=== PATIENT | female | born 1970 | race Caucasian/White ===

== ENCOUNTER 2019-07-16 09:20 | Outpatient (CLI) | payer OTHER, SELFPAY ==
--- NOTE | ~2019-07-16 | MM_ITS ---
EXAMINATION: MM screening angela BI w uday HISTORY: Screening mammogram TECHNIQUE: Craniocaudal and mediolateral oblique 3-D tomosynthesis images were obtained and synthetic 2-D images were generated. CAD analysis was submitted and interpreted. COMPARISON: 06/22/2018, 05/30/2017, 05/19/2016 bilateral digital screening mammogram examinations BREAST PARENCHYMAL COMPOSITION: The breasts are heterogeneously dense, which may obscure small masses . FINDINGS: There is asymmetry in the posterior outer left breast best demonstrated on rotated lateral craniocaudal view. Diagnostic left mammogram is recommended, with ultrasound if required. Occasional bilateral benign calcifications. Otherwise there is no evidence of suspicious mass, calcification, or architectural distortion to sugg est malignancy in either breast. There has been no suspicious interval change. IMPRESSION: 1. Posterior outer left breast asymmetry demonstrated on rotated lateral, caudal view; 2. Diagnostic left mammogram and left breast ultrasound are recommended. BI-RADS Category 0: Incomplete: Needs additional imaging evaluation. Reviewed, dictated and finalized at location A. IMPRESSION: 1. Posterior outer left breast asymmetry demonstrated on rotated lateral, cauda l view; 2. Diagnostic left mammogram and left breast ultrasound are recommended. BI-RADS Category 0: Incomplete: Needs additional imaging evaluation.
== END 2019-07-16 09:21 | disposition home or self-care (01) ==
LOC: ANHIMG 09:25
PROVIDERS: PCP Internal Medicine; Visit Provider Obstetrics & Gynecology
DX: Z12.31 Encounter for screening mammogram for malignant neoplasm of breast (principal); R92.8 Other abnormal and inconclusive findings on diagnostic imaging of breast
CPT/HCPCS: 77063; 77067

== ENCOUNTER 2019-07-25 12:18 | Outpatient (CLI) | payer OTHER, SELFPAY ==
--- NOTE | ~2019-07-25 | MMUS_ITS ---
EXAMINATION: MM diagnostic mammo unilat LT, US breast LT complete HISTORY: Follow-up left breast asymmetry TECHNIQUE: Additional 3-D tomosynthesis images of the left breast were performed and synthetic 2-D im ages were generated. CAD analysis was submitted and interpreted. High resolution left breast ultrasou nd was performed. COMPARISON: 07/16/2019 FINDINGS: MAMMOGRAPHIC FINDINGS: The breasts are heterogenously dense, which may obscure small masses. There is a small 4 mm mass supe rior to the nipple anteriorly on MLO view. Focal asymmetry laterally in the left breast on CC view do es not reveal any discrete mass or architectural distortion with spot compression. There are benign c alcifications. ULTRASOUND: Left breast ultrasound: There are multiple simple and complicated cyst of the left breast. There is a cluster of cysts at 12: 00, 1 cm from the nipple, likely corresponding to the mammographic abnormality, measuring 5 mm maximu m dimension. There is a small oval hypoechoic mass at 2:00, 6 cm from the nipple, measuring 3 mm, lik fabienne benign. There is an oval circumscribed hypoechoic mass at 2:00, 5 cm from the nipple, without int ernal vascularity or posterior features, measuring 7 mm maximum dimension. At 4:00, 3 cm from the nip ple, there is an oval circumscribed hypoechoic mass measuring 1.2 cm greatest dimension with internal echogenicity. No significant internal vascularity or posterior shadowing. This likely represents an intramammary lymph node. There is a possible intramammary lymph node at 8:00, 7 cm from the nipple me asuring 6 mm. IMPRESSION: 1. Probable benign left breast findings. 2. Recommend 6 month follow-up diagnostic left mammogram and ultrasound BI-RADS category 3, probably benign findings. Reviewed, dictated and finalized at location A. IMPRESSION: 1. Probable benign left breast findings. 2. Recommend 6 month follow-up diagnostic left mammogram and ultrasound BI-RADS category 3, probably benign findings.
== END 2019-07-25 12:19 | disposition home or self-care (01) ==
PROVIDERS: PCP Internal Medicine; Visit Provider Internal Medicine
DX: R92.8 Other abnormal and inconclusive findings on diagnostic imaging of breast (principal)
CPT/HCPCS: 76641; 77065

== ENCOUNTER 2021-10-30 14:27 | Outpatient (CLI) | payer OTHER, SELFPAY ==
--- NOTE | ~2021-10-30 | CT_ITS ---
EXAMINATION: CT abdomen pelvis w con DATE: 10/30/2021 15:42 INDICATION: Left lower quadrant abdominal pain. Diarrhea. TECHNIQUE: Computed tomography (CT) of the abdomen and pelvis was performed with 100 mL Omnipaque 350 intravenous contrast. Automated exposure control and iterative reconstruction technique were employe d. The dose-length product was 592.98 mGy-cm. COMPARISON: CT abdomen and pelvis 06/04/2018 FINDINGS: The visualized portions of the lung bases demonstrate minimal atelectasis. A calcified righ t lung nodule and calcified right hilar lymph nodes are consistent with old granulomatous disease. No pleural effusion. The heart size is normal. No pericardial effusion. The liver, gallbladder, spleen, pancreas, adrenal glands, and right kidney are normal. There is mild atrophy of left kidney. There i s a 10 mm cyst in left kidney. There is a 6 mm mass in left kidney that is too small to characterize, but likely benign. There is wall thickening of sigmoid colon with adjacent fat stranding centered at a diverticulum, consistent with diverticulitis. There are changes of appendectomy. There are no path ologically enlarged lymph nodes. There is trace pelvic ascites. There is mild thoracolumbar spondylos is. IMPRESSION: 1. Sigmoid diverticulitis. No perforation or abscess. Reviewed, dictated and finalized at location A.
[2021-10-30 14:47] LABS: Hematocrit 35.4 % (35.0-49.0); Mean Corpuscular HGB Conc 33.9 g/dL (32.0-36.0); Mean Corpuscular Hemoglobin 29.6 pg (27.0-31.0); Mean Corpuscular Volume 87.2 fL (78.0-102.0); Mean Platelet Volume 10.2 fl (9.2-11.8); Platelet Count Result 229 K/mm3 (150-420); Red Blood Count 4.06 M/mm3 (4.20-5.40); White Blood Count 8.2 K/mm3 (4.8-10.8)
[2021-10-30 14:48] LABS: Add Urine Microscopic? YES; Appearance Urine Clear (Clear); Bilirubin Urine Negative (Negative); Blood Urine Negative (Negative); Color Urine Light Yellow (Yellow); Glucose Urine UA Negative (Negative); Ketones Urine Negative (Negative); Leukocyte Esterase Ur 2+ LEU/UL (Negative); Nitrate Urine Negative (Negative); Protein Urine Negative (Negative); Urobilinogen Urine 0.2 mg/dL (0.2-1.0)
[2021-10-30 14:51] LABS: Bacteria Urine Trace /hpf; RBC Urine None seen /hpf (0-2); Squamous Epithelial Cell Urine Few /hpf (Few)
[2021-10-30 15:04] LABS: Alanine Aminotransferase 25 U/L (14-59); Albumin Level 3.8 g/dL (3.4-5.0); Alkaline Phosphatase 105 U/L (46-116); Amylase 51 U/L (25-115); Anion Gap 8 mmol/L (8-16); Aspartate Amino Transferase 16 U/L (15-37); Bilirubin,Total 0.5 mg/dL (0.00-1.00); Blood Urea Nitrogen 16 mg/dL (7-18); Calcium 9.1 mg/dL (8.5-10.1); Carbon Dioxide 29 mmol/L (21-32); Chloride 103 mmol/L (98-108); Estimated Glomerular Filt Rate 55; Glucose 101 mg/dL (70-99); Lipase 114 U/L (73-393); Osmolality Calculated 291 mOsm/kg (285-295); Potassium 3.8 mmol/L (3.5-5.1); Sodium 140 mmol/L (136-145); Total Protein 7.6 g/dL (6.4-8.2)
== END 2021-10-30 14:28 | disposition home or self-care (01) ==
LOC: CHSLAB 14:32
PROVIDERS: PCP Internal Medicine; Visit Provider Nurse Practitioner Family
DX: R10.9 Unspecified abdominal pain (principal); R50.9 Fever, unspecified; R19.7 Diarrhea, unspecified
CPT/HCPCS: 36415; 74177; 80053; 81001; 82150; 83690; 85027; 87077; 87086; 87088; 87186; Q9967

== ENCOUNTER 2022-03-22 10:03 | Outpatient (CLI) | payer OTHER, SELFPAY ==
--- NOTE | ~2022-03-22 | CT_ITS ---
CT Abdomen and Pelvis with contrast. History: Diarrhea, melena. Spiral CT of the abdomen and pelvis was performed after the administration of intravenous contrast. 1 00 cc of Omnipaque 350 was administered intravenously without complication. Dose reduction technique was used on this scan by utilizing automated exposure control and iterative reconstruction technique. The dose-length product (DLP) was 492.57 mGy-cm. COMPARISON: 10/30/2021 Findings: Scans through the lung bases demonstrate mild atelectatic change. The liver, spleen, pancreas, gallbladder, adrenals and kidneys are within normal limits. No evidence of aortic aneurysm. No lymphadenopathy is seen. There is no evidence of bowel obstruction. There is no evidence to suggest acute appendicitis or dive rticulitis. Images through the pelvis were performed. Urinary bladder unremarkable. Probable small fat-containing left ovarian mass, compatible small dermoid. No ascites is seen. Impression: No acute abnormality evident. Probable small fat-containing left ovarian dermoid. Female Reviewed, dictated and finalized at [facility]. [employer] Impression: No acute abnormality evident. Probable small fat-containing left ovarian dermoid. Female
[2022-03-22 10:18] LABS: Basophils Absolute Auto 0.03 K/mm3 (0.00-0.10); Basophils Percent Auto 0.7 % (0.0-1.0); Eosinophils Absolute Auto 0.06 K/mm3 (0.02-0.50); Eosinophils Percent Auto 1.4 % (1.0-6.0); Hematocrit 37.4 % (35.0-49.0); Hemoglobin 12.9 g/dL (12.0-15.0); Immature Granulocyte Absolute 0.01 K/mm3 (0.00-0.00); Immature Granulocyte Percent A 0.2 % (0.0-0.0); Lymphocytes Absolute Auto 1.07 K/mm3 (1.10-4.50); Lymphocytes Percent Auto 24.9 % (18.0-42.0); Mean Corpuscular HGB Conc 34.5 g/dL (32.0-36.0); Mean Corpuscular Hemoglobin 29.5 pg (27.0-31.0); Mean Corpuscular Volume 85.4 fL (78.0-102.0); Mean Platelet Volume 10.4 fl (9.2-11.8); Monocytes Absolute Auto 0.42 K/mm3 (0.10-0.90); Monocytes Percent Auto 9.8 % (2.0-11.0); Neutrophils Absolute Auto 2.7 K/mm3 (1.7-7.2); Platelet Count Result 253 K/mm3 (150-420); Red Blood Count 4.38 M/mm3 (4.20-5.40); Red Cell Distribution Width 12.9 % (11.6-14.4); White Blood Count 4.3 K/mm3 (4.8-10.8)
[2022-03-22 11:00] LABS: Alanine Aminotransferase 27 U/L (14-59); Albumin Level 4.1 g/dL (3.4-5.0); Alkaline Phosphatase 87 U/L (46-116); Anion Gap 9 mmol/L (8-16); Aspartate Amino Transferase 18 U/L (15-37); Bilirubin,Total 0.4 mg/dL (0.00-1.00); Blood Urea Nitrogen 9 mg/dL (7-18); Calcium 9.4 mg/dL (8.5-10.1); Carbon Dioxide 28 mmol/L (21-32); Chloride 105 mmol/L (98-108); Estimated Glomerular Filt Rate 60; Glucose 113 mg/dL (70-99); Osmolality Calculated 293 mOsm/kg (285-295); Potassium 3.7 mmol/L (3.5-5.1); Sodium 142 mmol/L (136-145); Total Protein 7.4 g/dL (6.4-8.2)
== END 2022-03-22 10:04 | disposition home or self-care (01) ==
PROVIDERS: PCP Internal Medicine; Visit Provider Internal Medicine
DX: R19.7 Diarrhea, unspecified (principal)
CPT/HCPCS: 36415; 74177; 80053; 85025; Q9967

== ENCOUNTER 2022-09-09 02:55 | Day surgery (SDC) | payer OTHER, SELFPAY ==
[2022-09-03 09:56] VITALS: BMI 33.3
[2022-09-09 09:45] VITALS: BP 104/79; PULSE 89; RESP 18; TEMP 36.4; O2SAT 89; BMI 31.1
[2022-09-09] MEDS: LACTATED RINGERS 1,000 ML 150 ML IV CONT (10:04)
--- NOTE | 2022-09-09 10:42 | P.PNAN_ITS ---
Anes - Initial Pre Proc Eval Procedure: Operation Date: 09/09/22 10:30 Proposed Procedures p Colonoscopy - Carlito Moya DO Date/Time: 09/09/22 10:42 Surgeon: Carlito Moya DO Pre Op Diagnosis: hx of hemorrhoids Patient Data Age: 52 Gender: F Height: 1.55 m Weight: 74.8 kg Last Vital Signs Temp 97.6 F 09/09/22 09:45 Pulse 89 09/09/22 09:45 Resp 18 09/09/22 09:45 BP 104/79 09/09/22 09:45 Pulse Ox 89 L 09/09/22 09:45 O2 Del Method Room Air 09/09/22 09:45 Allergies Allergy/AdvReac Type Severity Reaction Status Date / Time cephalexin Allergy Unknown Rash Verified 09/03/22 09:55 Sulfa (Sulfonamide Allergy Unknown Other Verified 09/03/22 09:55 Antibiotics) Home Medications Medication Instructions Recorded Confirmed Type Adderall XR 30 mg PO DAILY 09/03/22 09/03/22 History brexpiprazole 1 mg tablet (Rexulti) mg 09/03/22 History buspirone 10 mg tablet 10 mg PO TID 09/03/22 09/03/22 History vilazodone 40 mg tablet (Viibryd) 40 mg PO DAILY 09/03/22 09/03/22 History Patient hx anesthesia problems: none Family hx anesthesia problems: none Results Review: All pre-operative results and documents have been reviewed as part of the pre- operative evaluation. [facility] Social History Social History Smoking status: Never smoker Alcohol intake: current Drinks per week: 6 Living arrangements: with family Spiritual care concerns: No Anes - Eval Final PreProcedure Day of Procedure 09/09/22 10:42 Patient weight: normal Heart: regular rate and rhythm Lungs: clear to auscultation Airway: Mallampati scale class II Neurological: alert and oriented Last oral intake: >/= 8 hours ASA classification: II Emergent: no Anesthetic plan: proceed Anesthesia type and monitoring: general GIVS and standard monitoring Results Review: All pre-operative results and documents have been reviewed as part of the pre- operative evaluation. Informed Consent: The patient's anesthetic plan and its attendant risks and benefits were discussed with the patient/family/POA. Questions were solicited and answers provided to the satisfaction of the patient/family/POA.
--- NOTE | 2022-09-09 11:11 | PM.IMHP ---
H&P: HPI History of Present Illness Date/Time: 09/09/22 11:11 Chief Complaint: Rectal bleeding, diverticulitis Narrative: This is a 52-year-old woman who presents for colonoscopy. Her last colonoscopy was about 5-7 years ago. She has had multiple episodes of diverticulitis over the past couple years. The last episode she was also experiencing rectal bleeding. She denies any first-degree family members with colon cancer but did have a grandfather had colon cancer. Review of Systems Review of Systems: All systems reviewed & are unremarkable except as noted in HPI and below Constitutional: Constitutional: Denies chills, Denies fever(s), Denies headache(s) and Denies weight loss Eyes: Eyes: Denies change in vision ENT: Denies dizziness, Denies headache(s), Denies neck mass and Denies throat swelling Cardiovascular: Cardiovascular: Denies chest pain, Denies lightheadedness and Denies dyspnea Respiratory: Respiratory: Denies cough, Denies dyspnea and Denies wheezing Gastrointestinal: Gastrointestinal: Denies abdominal pain, Denies change in bowel habits, Denies nausea and Denies vomiting Genitourinary: Genitourinary: Denies hematuria and Denies dysuria Musculoskeletal: Musculoskeletal: Reports as per HPI Integumentary/Breasts: Skin/Breast: Reports as per HPI Neurologic: Denies dizziness and Denies headache(s) Allergic/Immunologic: Allergic/Immunologic: Denies throat swelling and Denies wheezing [facility] Social History Social History Smoking status: Never smoker Alcohol intake: current Drinks per week: 6 Living arrangements: with family Spiritual care concerns: No Meds Home Medications and Allergies Home Medications Medication Instructions Recorded Confirmed Type Adderall XR 30 mg PO DAILY 09/03/22 09/03/22 History brexpiprazole 1 mg tablet (Rexulti) mg 09/03/22 History buspirone 10 mg tablet 10 mg PO TID 09/03/22 09/03/22 History vilazodone 40 mg tablet (Viibryd) 40 mg PO DAILY 09/03/22 09/03/22 History Allergies Allergy/AdvReac Type Severity Reaction Status Date / Time cephalexin Allergy Unknown Rash Verified 09/03/22 09:55 Sulfa (Sulfonamide Allergy Unknown Other Verified 09/03/22 09:55 Antibiotics) Vital Signs Vital Signs - 24 hr 09/09/22 09:45 Temperature 36.4 C Pulse Rate 89 Respiratory Rate 18 Blood Pressure 104/79 Pulse Oximetry 89 L Oxygen Delivery Room Air Exam Const: General: no acute distress and alert Orientation/consciousness: patient oriented x3 HENMT: Head: normocephalic and atraumatic Ears: hearing grossly normal bilaterally Face/Nose/Sinus: Normal nares present Mouth: Yes Normal oral and palatal mucosa present Eyes: Periorbital: periorbital findings normal Sclera: sclerae normal EOM: EOMs intact bilaterally Neck: Neck: normal visual inspection, no lymphadenopathy and trachea midline Chest: Chest palpation & inspection: normal inspection of the chest Resp: Effort & Inspection: normal respiratory effort Auscultation: clear to auscultation bilaterally Cardio: Jugular venous distension: no JVD Rate: regular rate Rhythm: regular rhythm Heart sounds: S1 normal heart sound present and S2 normal heart sound present Peripheral pulses: Peripheral pulses 2+ throughout GI: Inspection: normal to inspection GI Palp: Yes Soft to palpation, No Tenderness to palpation present (GI), No Guarding due to palpation present (GI) and No Rebound tenderness present Percussion: Yes normal to percussion Auscultation: normal bowel sounds : General: Yes no CVA tenderness Back/Spine/Pelvis: Back: no CVA tenderness Neuro: General: patient oriented x3, no focal motor deficits and CN's II-XI intact bilaterally Cognition (Neuro): normal cognition Speech: normal speech Motor exam (neuro): 5/5 motor strength present throughout Extrem: General: capillary refill normal and no clubbing, cyanosis or edema Ass
[2022-09-09 11:41] VITALS: BP 82/41; PULSE 87; RESP 18; O2SAT 100
[2022-09-09 11:51] VITALS: BP 83/40; PULSE 75; RESP 18; O2SAT 100
[2022-09-09 12:01] VITALS: BP 110/69; PULSE 73; RESP 25; O2SAT 97
== END 2022-09-09 12:09 | disposition home or self-care (01) ==
PROVIDERS: PCP Internal Medicine; Visit Provider Surgery
PROC: 0DJD8ZZ Inspection of Lower Intestinal Tract, Via Natural or Artificial Opening Endoscopic (ICD-10-PCS; CPT 45378; principal; 2022-09-09 10:30)
DX: K62.5 Hemorrhage of anus and rectum (principal); K63.5 Polyp of colon; K57.30 Diverticulosis of large intestine without perforation or abscess without bleeding; Z87.19 Personal history of other diseases of the digestive system
CPT/HCPCS: 45380; 88305; J2704; J7120

== ENCOUNTER 2022-10-24 18:19 | Observation (INO) | payer OTHER, SELFPAY ==
--- NOTE | ~2022-10-24 | CT_ITS ---
EXAMINATION: CT abdomen pelvis wo con DATE: 10/24/2022 19:49 INDICATION: Flank pain TECHNIQUE: Computed tomography (CT) of the abdomen and pelvis was performed without intravenous contr ast. Automated exposure control and iterative reconstruction technique were employed. The dose-length product was 492.42 mGy-cm. COMPARISON: 03/22/2022 and 06/04/2018 FINDINGS: Calcified right lower lobe nodule along with calcified right hilar lymph nodes consistent with old gr anulomatous disease. 4 mm left lower lobe nodule likely benign noncalcified granuloma given no change since 2019. Heart size is normal. No pericardial or pleural effusion. Liver, gallbladder, spleen, pa ncreas, right kidney and bilateral adrenal glands are normal. No significant change since 11/07/2021 i n a 7 mm soft tissue density partially exophytic lesion at the upper pole region of the left kidney. Small region of cortical scarring at the upper pole the left kidney. No evident urolithiasis. Postope rative change of prior appendectomy with suture line along the tip the cecum and a couple surgical cl ips in the adjacent fat. No abnormal bowel wall thickening or obstruction. Bladder is normal. The shanice iesha is not identified and has likely been surgically resected. No free intraperitoneal gas or fluid. No pathologically enlarged abdominal or pelvic lymphadenopathy. Bones are unremarkable. IMPRESSION: 1. No urolithiasis or other acute intra-abdominal/pelvic process. 2. 7 mm soft tissue density lesion at the mid left kidney statistically most likely to represent a pr oteinaceous/hemorrhagic cyst but too small to definitively characterize. Consider 6-12 month follow-u p pre and postcontrast CT or preferably MRI. Reviewed, dictated and finalized at location A. IMPRESSION: 1. No urolithiasis or other acute intra-abdominal/pelvic process. 2. 7 mm soft tissue density lesion at the mid left kidney statistically most li bev to represent a proteinaceous/hemorrhagic cyst but too small to definitivel y characterize. Consider 6-12 month follow-up pre and postcontrast CT or prefer ably MRI.
--- NOTE | ~2022-10-24 | XR_ITS ---
EXAMINATION: XR chest 1V portable DATE: 10/26/2022 15:53 INDICATION: Shortness of breath and pleuritic chest pain TECHNIQUE: frontal view of the chest was obtained. COMPARISON: CT abdomen and pelvis dated 10/24/2022 FINDINGS: Calcified right lower lobe nodule and calcified right hilar and infrahilar lymph nodes consistent wit h old granulomatous disease. No other airspace opacities, pulmonary edema, pleural effusion or pneumo thorax. The cardiomediastinal silhouette is normal. Visualized bones and soft tissues are unremarkabl e. IMPRESSION: 1. No acute cardiopulmonary disease. Reviewed, dictated and finalized at location A.
[2022-10-24 18:26] VITALS: BP 117/74; PULSE 133; RESP 20; TEMP 37.5; O2SAT 98
[2022-10-24 18:55] LABS: Basophils Percent Auto 0.4 % (0.2-1.2); Eosinophils Percent Auto 0.6 % (0-4.4); Hematocrit 40.3 % (37.0-47.0); Hemoglobin 13.7 g/dL (12.0-15.0); Immature Granulocyte Absolute 0.03 K/mm3 (0.00-0.031); Immature Granulocyte Percent A 0.4 % (0-0.5); Lymphocytes Absolute Auto 0.46 K/mm3 (0.9-3.2); Lymphocytes Percent Auto 6.6 % (18.3-44.2); Mean Corpuscular Hemoglobin 29.5 pg (26-34); Mean Corpuscular Volume 86.7 fl (80-100); Mean Platelet Volume 10.5 fl (7.4-10.4); Monocytes Absolute Auto 0.5 K/mm3 (0.1-0.6); Monocytes Percent Auto 7.4 % (2.6-8.5); Neutrophils Absolute Auto 5.9 K/mm3 (1.3-6.7); Neutrophils Percent Auto 84.6 % (45.5-73.1); Platelet Count Result 239 k/mm3 (150-375); Red Blood Count 4.65 M/mm3 (4.2-5.4); Red Cell Distribution Width 12.9 % (11.5-14.5)
[2022-10-24 19:01] VITALS: BP 119/74; PULSE 108; PULSE 110; RESP 15; RESP 18; O2SAT 97
[2022-10-24 19:08] LABS: Alanine Aminotransferase 32 U/L (6-35); Albumin Level 4.6 g/dL (3.5-5.1); Alkaline Phosphatase 94 U/L (38-126); Anion Gap 10 mmol/L (8-16); Aspartate Amino Transferase 29 U/L (14-36); Bilirubin,Total 0.4 mg/dL (0.2-1.3); Blood Urea Nitrogen 13 mg/dL (7-17); Calcium 9.3 mg/dL (8.4-10.2); Carbon Dioxide 25 mmol/L (22-30); Chloride 102 mmol/L (98-107); Estimated CRCL calculation 66 ml/min; Estimated Glomerular Filt Rate > 60; Glucose 167 mg/dL (65-110); Potassium 3.8 mmol/L (3.4-5.0); Sodium 137 mmol/L (137-145)
[2022-10-24 19:17] LABS: Bacteria Urine 3+ /hpf; Mucus Urine Present /lpf; Need Manual Microscopic Reviewed; RBC Urine 51-100 /hpf (0-2); Squamous Epithelial Cell Urine Occasional /hpf (Few); WBC Urine 21-50 /hpf
[2022-10-24 19:18] LABS: Appearance Urine Cloudy (Clear); Blood Urine 3+ (Negative); Color Urine Orange (Yellow); Glucose Urine UA Negative (Negative); Ketones Urine Negative (Negative); Leukocyte Esterase Ur 3+ LEU/UL (Negative); Nitrate Urine Positive (Negative); Protein Urine 1+ mg/dL (Negative); Specific Grav Ur 1.019 (1.001-1.035)
[2022-10-24 19:30] LABS: Add Urine Microscopic? YES
[2022-10-24] MEDS: ONDANSETRON INJ 4 MG/2 ML VIAL IV PUSH (20:06)
[2022-10-24] MEDS: KETOROLAC 30 MG/ML VIAL (*BKC) IV PUSH (20:06)
[2022-10-24] MEDS: SODIUM CHLORIDE 0.9% IV 1,000 ML 999 ML IV CONT (20:06)
[2022-10-24 20:09] VITALS: BP 114/74; PULSE 104; RESP 15; O2SAT 97
[2022-10-24 20:44] LABS: Lactic Acid Reflex 1.6 mmol/L (0.7-2.0)
--- NOTE | 2022-10-24 20:45 | ED.GENADULT ---
HPI - General Adult General Chief complaint: Urogenital-Female Stated complaint: uti, fever Time Seen by Provider: 10/24/22 19:20 History of Present Illness HPI narrative: Patient a 52-year-old female who presents the emergency department with chief complaint of flank pain UTI low-grade temperature patient reports that she was seen in urgent care and started on Cipro. The patient reports that she has no prior history of kidney stones the patient reports she is also had a little bit of a sore throat and generalized malaise and body aches. Related Data Home Medications Medication Instructions Recorded Confirmed Adderall XR 30 mg PO DAILY 09/03/22 09/03/22 brexpiprazole 1 mg tablet (Rexulti) mg 09/03/22 buspirone 10 mg tablet 10 mg PO TID 09/03/22 09/03/22 vilazodone 40 mg tablet (Viibryd) 40 mg PO DAILY 09/03/22 09/03/22 Allergies Allergy/AdvReac Type Severity Reaction Status Date / Time cephalexin Allergy Unknown Rash Verified 10/24/22 18:35 Sulfa (Sulfonamide Allergy Unknown Other Verified 10/24/22 18:35 Antibiotics) Review of Systems Review of Systems: A 10 system review of systems was completed on the patient and is negative except for what is stated in the HPI. Nursing and ancillary documentation was reviewed. [facility] Social History Social History Smoking status: Never smoker Alcohol intake: current Drinks per week: 6 Living arrangements: with family Spiritual care concerns: No Exam Narrative: GENERAL: Well-appearing, well-nourished, and in no acute distress. HEAD: Normocephalic, atraumatic. EYES: PERRLA and EOMI. ENT: Nares clear, no rhinorrhea or epistaxis. Mucous membranes moist. NECK: Supple. CHEST: Clear to auscultation. No respiratory distress. HEART: Regular rate and rhythm. No murmur heard. Normal peripheral pulses. ABDOMEN: Soft, nontender, nondistended, normal active bowel sounds. EXTREMITIES: Normal range of motion. No edema. SKIN: Warm, dry, no rash. NEURO: No focal deficits. Alert and oriented x3. PSYCH: Normal mood and affect. Course Vital Signs Vital signs: Vital Signs Temperature 37.5 C 10/24/22 18:26 Pulse Rate 133 H 10/24/22 18:26 Respiratory Rate 20 10/24/22 18:26 Blood Pressure 117/74 10/24/22 18:26 Pulse Oximetry 98 10/24/22 18:26 Oxygen Delivery Room Air 10/24/22 18:26 Temperature 37.5 C 10/24/22 18:26 Pulse Rate 104 H 10/24/22 20:09 Respiratory Rate 15 10/24/22 20:09 Blood Pressure 114/74 10/24/22 20:09 Pulse Oximetry 97 10/24/22 20:09 Oxygen Delivery Room Air 10/24/22 18:26 Medical Decision Making MDM Narrative Medical decision making narrative: Differential diagnosis includes pyelonephritis, obstructing ureterolithiasis, electrolyte abnormality, dehydration Laboratory studies were obtained which showed a normal white blood cell count urinalysis showed 21-50 white blood cells 3+ leukocyte esterase positive nitrate and 3+ bacteria CT scan showed no evidence of obstructing stone Patient is negative for COVID and influenza and strep The patient does have a allergy listed to Heavy. This was at a very young age and the patient reports that she had a rash. Given the patient has been treated with Cipro since Tuesday with failing outpatient therapy the patient will be attempted with a Rocephin dosing. The patient will be monitored in the emergency department after receiving Rocephin and the patient will be admitted Vital Signs Vital Signs: Vital Signs Temperature 37.5 C 10/24/22 18:26 Pulse Rate 133 H 10/24/22 18:26 Respiratory Rate 20 10/24/22 18:26 Blood Pressure 117/74 10/24/22 18:26 Pulse Oximetry 98 10/24/22 18:26 Oxygen Delivery Room Air 10/24/22 18:26 Temperature 37.5 C 10/24/22 18:26 Pulse Rate 104 H 10/24/22 20:09 Respiratory Rate 15 10/24/22 20:09 Blood Pressure 114/74 10/24/22 20:09
[2022-10-24 20:58] LABS: Strep Group A RT-PCR NOT DETECTED (Negative)
[2022-10-24 21:10] LABS: Influenza A QL RT-PCR Negative (Negative); Influenza B QL RT-PCR Negative (Negative); SARS-CoV-2 RNA PCR Negative (Negative)
[2022-10-24 22:58] VITALS: BP 105/57; PULSE 87; RESP 16; TEMP 36.7; O2SAT 98; BMI 30.4
--- NOTE | 2022-10-24 23:01 | ADMGEN ---
This patient, Jessica Lopez, was admitted to Medical Room 241-. Patient/family oriented to hospital policies and general routines including ID bracelet, bed and alarms, visiting hours, pain management, procedures, bathroom and other care routines, personal items, smoking policy, room service/diet, and visiting hours. Information on how to activate the Rapid Response Team has been discussed. Patient/Family are encouraged to report perceived risks to care and to ask questions if they do not understand what they are told or what they should do.
[2022-10-24] MEDS: SODIUM CHLORIDE 0.9% IV 1,000 ML 125 ML IV CONT (23:10)
--- NOTE | 2022-10-24 23:21 | PM.IMHP ---
H&P: HPI History of Present Illness Date/Time: 10/24/22 23:21 Chief Complaint: Fever Narrative: This is a 52-year-old female with past medical history significant for generalized anxiety disorder, major depression, adult attention deficit disorder. Patient presents to the emergency room due to several days of dysuria, had been to the urgent care where she was prescribed ciprofloxacin and sent home however patient noticed worsening of the symptoms no relieve overall worsening of generalized weakness and malaise and had a fever had some nausea but no vomiting patient also with pain in her back and flank area. Preliminary workup was significant for urinalysis with numerous WBCs present. [place] [address] [place], [place] [id number] CT Scan Report Signed Patient: Jessica Lopez : 1970 MR#: [id number] Age/Sex: 52 / F Acct:[id number] Loc: [facility]? ? ADM Date: 10/24/22Attending Dr: Ordering Physician: Dani Mccord MD Date of Service: 10/24/22 Procedure(s): CT abdomen pelvis wo con Accession Number(s): [id number] cc: Romeo Dobbs MD; Dani Mccord MD~ EXAMINATION: CT abdomen pelvis wo con DATE: 10/24/2022 19:49 INDICATION: Flank pain TECHNIQUE: Computed tomography (CT) of the abdomen and pelvis was performed without intravenous contrast. Automated exposure control and iterative reconstruction technique were employed. The dose-length product was 492.42 mGy-cm. COMPARISON: 03/22/2022 and 06/04/2018 FINDINGS: Calcified right lower lobe nodule along with calcified right hilar lymph nodes consistent with old granulomatous disease. 4 mm left lower lobe nodule likely benign noncalcified granuloma given no change since 2019. Heart size is normal. No pericardial or pleural effusion. Liver, gallbladder, spleen, pancreas, right kidney and bilateral adrenal glands are normal. No significant change since 11/07/2021 in a 7 mm soft tissue density partially exophytic lesion at the upper pole region of the left kidney. Small region of cortical scarring at the upper pole the left kidney. No evident urolithiasis. Postoperative change of prior appendectomy with suture line along the tip the cecum and a couple surgical clips in the adjacent fat. No abnormal bowel wall thickening or obstruction. Bladder is normal. The uterus is not identified and has likely been surgically resected. No free intraperitoneal gas or fluid. No pathologically enlarged abdominal or pelvic lymphadenopathy. Bones are unremarkable. IMPRESSION: 1. No urolithiasis or other acute intra-abdominal/pelvic process. 2. 7 mm soft tissue density lesion at the mid left kidney statistically most likely to represent a proteinaceous/hemorrhagic cyst but too small to definitively characterize. Consider 6-12 month follow-up pre and postcontrast CT or preferably MRI. Review of Systems Review of Systems: Dysuria, flank pain back pain generalized malaise, fever, chills, nausea. Constitutional: Constitutional: Reports chills, Reports fatigue, Reports malaise, Reports poor appetite and Reports weakness Eyes: Eyes: Denies change in vision ENT: Denies dysphagia and Denies odynophagia Cardiovascular: Cardiovascular: Denies chest pain, Denies radiating jaw, neck or arm pain and Denies palpitations Respiratory: Respiratory: Denies chest congestion, Denies cough, Denies dyspnea and Denies dyspnea on exertion Gastrointestinal: Gastrointestinal: Denies abdominal pain, Denies dyspepsia, Denies heartburn, Denies diarrhea, Reports nausea and Denies vomiting Genitourinary: Genitourinary: Reports dysuria and Reports flank pain Musculoskeletal: Musculoskeletal: Reports muscle weakness Integumentary/Breasts: Skin/Breast: Denies rash Neurologic: Denies focal weakness and Denies Sensory deficit (Neuro) Psychiatric: Psychiatric: Reports no additional psychiatric complaints and Reports as per HPI Endocrine: Endo
[2022-10-25 02:33] VITALS: TEMP 37.2
[2022-10-25] MEDS: ACETAMINOPHEN 500 MG TABLET 1000 MG PO ×2 (02:36→19:40)
[2022-10-25 06:00] VITALS: BP 108/67; PULSE 81; RESP 14; TEMP 36.7; O2SAT 98
[2022-10-25 06:01] LABS: Basophils Percent Auto 0.4 % (0.2-1.2); Eosinophils Absolute Auto 0.1 K/mm3 (0-0.3); Eosinophils Percent Auto 0.9 % (0-4.4); Hematocrit 36.6 % (37.0-47.0); Hemoglobin 12.1 g/dL (12.0-15.0); Immature Granulocyte Absolute 0.02 K/mm3 (0.00-0.031); Immature Granulocyte Percent A 0.4 % (0-0.5); Lymphocytes Absolute Auto 0.77 K/mm3 (0.9-3.2); Lymphocytes Percent Auto 13.9 % (18.3-44.2); Mean Corpuscular HGB Conc 33.1 g/dl (32-36); Mean Corpuscular Hemoglobin 29.3 pg (26-34); Mean Corpuscular Volume 88.6 fl (80-100); Mean Platelet Volume 10.8 fl (7.4-10.4); Monocytes Absolute Auto 0.5 K/mm3 (0.1-0.6); Monocytes Percent Auto 8.9 % (2.6-8.5); Neutrophils Absolute Auto 4.2 K/mm3 (1.3-6.7); Neutrophils Percent Auto 75.5 % (45.5-73.1); Platelet Count Result 195 k/mm3 (150-375); Red Blood Count 4.13 M/mm3 (4.2-5.4); Red Cell Distribution Width 12.8 % (11.5-14.5); White Blood Count 5.5 K/mm3 (4.5-10.0)
[2022-10-25 06:17] LABS: Anion Gap 5 mmol/L (8-16); Blood Urea Nitrogen 11 mg/dL (7-17); Calcium 8.3 mg/dL (8.4-10.2); Carbon Dioxide 26 mmol/L (22-30); Chloride 107 mmol/L (98-107); Estimated CRCL calculation 74 ml/min; Estimated Glomerular Filt Rate > 60; Glucose 107 mg/dL (65-110); Potassium 3.8 mmol/L (3.4-5.0); Sodium 138 mmol/L (137-145)
--- NOTE | 2022-10-25 07:18 | PM.IMPN ---
Progress Note: A&P Assessment and Plan (1) Pyelonephritis: Code(s): N12 - Tubulo-interstitial nephritis, not specified as acute or chronic Status: Acute Assessment and Plan: Admit to regular medical floor Patient started on Rocephin Await urine culture identification sensitive Continue to monitor Supportive care (2) Generalized anxiety disorder: Code(s): F41.1 - Generalized anxiety disorder Status: Acute Assessment and Plan: Continue home meds Follow-up in outpatient setting (3) ADHD (attention deficit hyperactivity disorder): Code(s): F90.9 - Attention-deficit hyperactivity disorder, unspecified type Status: Acute Assessment and Plan: Continue home meds Follow-up in outpatient setting Plan Feeding:general diet Analgesia:acetaminophen Thromboembolic prophylaxis: SCDs Ulcer prophylaxis: Not indicated Glycemic control: Not indicated Bowel regimen: Not indicated Lines: PIV Antibiotics: Rocephin Subjective Date/time seen: 10/25/22 07:18 Interval history: HPI obtained from chart, This is a 52-year-old female with past medical history significant for generalized anxiety disorder, major depression, adult attention deficit disorder.? Patient presents to the emergency room due to several days of dysuria, had been to the urgent care where she was prescribed ciprofloxacin and sent home however patient noticed worsening of the symptoms no relieve overall worsening of generalized weakness and malaise and had a fever had some nausea but no vomiting patient also with pain in her back and flank area.? Preliminary workup was significant for urinalysis with numerous WBCs present. Interval history 10/25: Patient seen resting in bed today. She is tired from being up overnight. She complains of fatigue, bilateral flank pain, dysuria, urgency and frequency, and muscle aches. She denies fever chills overnight, she does say that she had a fever on Tuesday which is what prompted her to come to the ER. She reports a couple episodes of nausea at home but nothing since her admission. She was able to tolerate diet this morning. I reviewed plan of care including IV fluids and IV antibiotics. Patient is agreeable to plan of care. Review of Systems Review of Systems: All systems reviewed & are unremarkable except as noted in HPI and below Exam Narrative: General: ill appearing, well developed, well nourished, appears stated age. HEENT: normocephalic, atraumatic. Mucous membranes moist. EOMI, PERRLA, bilateral sclera anicteric, no conjunctival injection. Neck supple without JVD, lymphadenopathy, or bruit. Respiratory: clear to auscultation bilaterally. No rales/rhonci/wheezes. Cardiovascular: Regular rate and rhythm, normal S1-S2 upon auscultation. No murmurs, rubs, or clicks. PMI is nondisplaced, capillary re-fill less than 3 second. Abdomen: Soft, flat, no pulsatile masses, non-distended and mildly-tender. No rebound, no guarding. + bilateral CVA tenderness, no hepatosplenomegaly. Bowel sounds present to all four quadrants. No high pitch or tinkling sounds, resonant to percussion. Extremities: No cyanosis, clubbing, or edema present. Pulses are palpable 2/2. Active ROM to all four extremities. Neuro: Alert and orientated x 4. PERRLA. Cranial nerves 2-12 intact without focal deficit. Skin: Warm, dry, and intact, without rash, erythema, or lesion. Lines: PIV Incisions: None Psych: pleasant, cooperative, normal speech, normal affect, no hallucinations, no dysarthria Objective Data Vital Signs Vital Signs: Vital Signs - 24 hr 10/24/22 18:26 10/24/22 19:01 10/24/22 19:01 Temperature 99.5 F Pulse Rate 133 H 110 H 108 H Respiratory Rate 20 15 18 Blood Pressure 117/74 119/74 119/74 Pulse Oximetry 98 97 97 Oxygen Delivery Room Air 10/24/22 20:09 10/24/22 22:58 10/24/22 23:28 Temperature 98.1 F Pulse Rate 104 H 87 Respiratory Rate 15 16 Blo
[2022-10-25] MEDS: SODIUM CHLORIDE 0.9% IV 1,000 ML 125 ML IV CONT ×2 (07:20→15:45)
[2022-10-25] MEDS: ENOXAPARIN 40 MG/0.4 ML SYRINGE SUB-Q (09:32)
[2022-10-25] MEDS: busPIRone HCL 10 MG TABLET PO ×3 (09:33→16:57)
[2022-10-25 09:34] VITALS: RESP 16; O2SAT 98; BMI 30.4
--- NOTE | 2022-10-25 11:09 | PHAR ---
HOME MED VERIFIED = [facility] [id number] VILAZODONE 40 MG TABS (OBLONG LIGHT BLUE FR3) 1 TAB Q MORNING
[2022-10-25 15:00] VITALS: BP 124/71; PULSE 100; RESP 18; TEMP 37.1; O2SAT 97
[2022-10-25 19:41] VITALS: BP 124/79; PULSE 93; RESP 18; TEMP 36.3; O2SAT 94
[2022-10-26] MEDS: SODIUM CHLORIDE 0.9% IV 1,000 ML 125 ML IV CONT ×3 (00:18→17:57)
[2022-10-26 03:29] VITALS: BP 119/77; PULSE 81; RESP 20; TEMP 36.3; O2SAT 95
[2022-10-26] MEDS: ACETAMINOPHEN 500 MG TABLET 1000 MG PO (03:37)
[2022-10-26 04:41] LABS: Basophils Percent Auto 0.3 % (0.2-1.2); Eosinophils Absolute Auto 0.1 K/mm3 (0-0.3); Hematocrit 33.4 % (37.0-47.0); Hemoglobin 11.5 g/dL (12.0-15.0); Immature Granulocyte Absolute 0.01 K/mm3 (0.00-0.031); Immature Granulocyte Percent A 0.2 % (0-0.5); Lymphocytes Absolute Auto 0.98 K/mm3 (0.9-3.2); Mean Corpuscular HGB Conc 34.4 g/dl (32-36); Mean Corpuscular Hemoglobin 29.4 pg (26-34); Mean Corpuscular Volume 85.4 fl (80-100); Mean Platelet Volume 10.2 fl (7.4-10.4); Monocytes Absolute Auto 0.7 K/mm3 (0.1-0.6); Monocytes Percent Auto 12.5 % (2.6-8.5); Platelet Count Result 200 k/mm3 (150-375); Red Blood Count 3.91 M/mm3 (4.2-5.4); Red Cell Distribution Width 12.3 % (11.5-14.5); White Blood Count 5.8 K/mm3 (4.5-10.0)
[2022-10-26 05:00] LABS: Alanine Aminotransferase 27 U/L (6-35); Albumin Level 3.4 g/dL (3.5-5.1); Alkaline Phosphatase 82 U/L (38-126); Anion Gap 3 mmol/L (8-16); Aspartate Amino Transferase 29 U/L (14-36); Bilirubin,Total 0.3 mg/dL (0.2-1.3); Blood Urea Nitrogen 7 mg/dL (7-17); Calcium 8.1 mg/dL (8.4-10.2); Carbon Dioxide 27 mmol/L (22-30); Chloride 105 mmol/L (98-107); Estimated CRCL calculation 74 ml/min; Estimated Glomerular Filt Rate > 60; Glucose 102 mg/dL (65-110); Magnesium 1.8 mg/dL (1.6-2.3); Potassium 3.8 mmol/L (3.4-5.0); Sodium 135 mmol/L (137-145)
--- NOTE | 2022-10-26 06:52 | PM.IMPN ---
Progress Note: A&P Assessment and Plan (1) Pyelonephritis: Code(s): N12 - Tubulo-interstitial nephritis, not specified as acute or chronic Status: Acute Assessment and Plan: Admit to regular medical floor Blood cultures with NGTD Urine culture with gram negative bacilli isolated ESBL with multiple resistance. Adding Ertapenem [address] midline tomorrow and plan for IV antibiotics with home health for 7 days with EOT 11/01. Home health referrals have been sent. Continue to monitor Supportive care (2) Generalized anxiety disorder: Code(s): F41.1 - Generalized anxiety disorder Status: Acute Assessment and Plan: Continue home meds Follow-up in outpatient setting (3) ADHD (attention deficit hyperactivity disorder): Code(s): F90.9 - Attention-deficit hyperactivity disorder, unspecified type Status: Acute Assessment and Plan: Continue home meds Follow-up in outpatient setting Plan Feeding:general diet Analgesia:acetaminophen Thromboembolic prophylaxis: SCDs Ulcer prophylaxis: Not indicated Glycemic control: Not indicated Bowel regimen: Not indicated Lines: PIV Antibiotics: Ertapenem 1 gram daily IVPB until 11/04. Subjective Date/time seen: 10/26/22 06:52 Interval history: HPI obtained from chart, This is a 52-year-old female with past medical history significant for generalized anxiety disorder, major depression, adult attention deficit disorder.? Patient presents to the emergency room due to several days of dysuria, had been to the urgent care where she was prescribed ciprofloxacin and sent home however patient noticed worsening of the symptoms no relieve overall worsening of generalized weakness and malaise and had a fever had some nausea but no vomiting patient also with pain in her back and flank area.? Preliminary workup was significant for urinalysis with numerous WBCs present. Interval history 10/25: Patient seen resting in bed today. She is tired from being up overnight. She complains of fatigue, bilateral flank pain, dysuria, urgency and frequency, and muscle aches. She denies fever chills overnight, she does say that she had a fever on Tuesday which is what prompted her to come to the ER. She reports a couple episodes of nausea at home but nothing since her admission. She was able to tolerate diet this morning. I reviewed plan of care including IV fluids and IV antibiotics. Patient is agreeable to plan of care. 10/26: No acute events overnight. Patient says she is feeling slightly better than yesterday. Her bilateral lower back pain is improving. She does have a migraine headache today which she contributes to not having a lot of caffeine. Her urine culture is growing ESBL resistant to multiple agents. She is going to need a 7 day treatment of IV ertapenem for pyelonephritis. I plan to keep her today for another day of observation and await return of blood cultures prior to placing her midline. Midline will be placed tomorrow and then home health care consult have been sent out. Review of Systems Review of Systems: All systems reviewed & are unremarkable except as noted in HPI and below Exam Narrative: General: ill appearing, well developed, well nourished, appears stated age. HEENT: normocephalic, atraumatic. Mucous membranes moist. EOMI, PERRLA, bilateral sclera anicteric, no conjunctival injection. Neck supple without JVD, lymphadenopathy, or bruit. Respiratory: clear to auscultation bilaterally. No rales/rhonci/wheezes. Cardiovascular: Regular rate and rhythm, normal S1-S2 upon auscultation. No murmurs, rubs, or clicks. PMI is nondisplaced, capillary re-fill less than 3 second. Abdomen: Soft, flat, no pulsatile masses, non-distended and mildly-tender. No rebound, no guarding. + bilateral CVA tenderness, no hepatosplenomegaly. Bowel sounds present to all four quadrants. No high pitch or tinkling sounds, resonant to percus
--- NOTE | 2022-10-26 06:55 | PC.NURSE ---
Documentation for night 10/25 by Abdifatah Larson reviewed by this nurse.
[2022-10-26] MEDS: busPIRone HCL 10 MG TABLET PO ×3 (08:39→16:19)
[2022-10-26] MEDS: ENOXAPARIN 40 MG/0.4 ML SYRINGE SUB-Q (08:39)
[2022-10-26 08:43] VITALS: RESP 20; O2SAT 97
[2022-10-26 09:33] VITALS: PULSE 88; O2SAT 97
[2022-10-26] MEDS: ACETAMINOPHEN/BUTALBITAL/CAFFEINE 325-50-40 MG TABLET (FIORICET) 1 TAB PO ×2 (11:42→19:58)
[2022-10-26] MEDS: ERTAPENEM 1 GM/NS 50 ML 1 GM/50 ML BAG IVPB (11:43)
[2022-10-26 13:50] VITALS: BP 127/76; PULSE 77; RESP 18; TEMP 36.7; O2SAT 96
[2022-10-26 20:14] VITALS: BP 129/76; PULSE 88; RESP 20; TEMP 36.9; O2SAT 97
[2022-10-26 20:56] VITALS: O2SAT 97
[2022-10-27] MEDS: SODIUM CHLORIDE 0.9% IV 1,000 ML 125 ML IV CONT (03:05)
[2022-10-27 05:15] VITALS: BP 126/83; PULSE 81; RESP 20; TEMP 37; O2SAT 98
--- NOTE | 2022-10-27 05:20 | PC.NURSE ---
Documentation for night 10/26 by Abdifatah Larson reviewed by this nurse.
[2022-10-27 05:58] LABS: Basophils Percent Auto 0.5 % (0.2-1.2); Eosinophils Absolute Auto 0.1 K/mm3 (0-0.3); Eosinophils Percent Auto 2.2 % (0-4.4); Hematocrit 32.7 % (37.0-47.0); Hemoglobin 10.9 g/dL (12.0-15.0); Immature Granulocyte Absolute 0.02 K/mm3 (0.00-0.031); Immature Granulocyte Percent A 0.5 % (0-0.5); Lymphocytes Absolute Auto 1.21 K/mm3 (0.9-3.2); Lymphocytes Percent Auto 29.2 % (18.3-44.2); Mean Corpuscular HGB Conc 33.3 g/dl (32-36); Mean Corpuscular Hemoglobin 28.9 pg (26-34); Mean Corpuscular Volume 86.7 fl (80-100); Mean Platelet Volume 10.8 fl (7.4-10.4); Monocytes Absolute Auto 0.6 K/mm3 (0.1-0.6); Monocytes Percent Auto 13.5 % (2.6-8.5); Neutrophils Absolute Auto 2.3 K/mm3 (1.3-6.7); Neutrophils Percent Auto 54.1 % (45.5-73.1); Platelet Count Result 212 k/mm3 (150-375); Red Blood Count 3.77 M/mm3 (4.2-5.4); Red Cell Distribution Width 12.5 % (11.5-14.5); White Blood Count 4.2 K/mm3 (4.5-10.0)
[2022-10-27 06:09] LABS: Potassium 3.6 mmol/L (3.4-5.0)
[2022-10-27 06:50] LABS: Alanine Aminotransferase 23 U/L (6-35); Albumin Level 3.1 g/dL (3.5-5.1); Alkaline Phosphatase 70 U/L (38-126); Anion Gap 5 mmol/L (8-16); Aspartate Amino Transferase 21 U/L (14-36); Bilirubin,Total 0.2 mg/dL (0.2-1.3); Blood Urea Nitrogen 5 mg/dL (7-17); Calcium 8.1 mg/dL (8.4-10.2); Carbon Dioxide 28 mmol/L (22-30); Chloride 106 mmol/L (98-107); Estimated CRCL calculation 74 ml/min; Estimated Glomerular Filt Rate > 60; Glucose 89 mg/dL (65-110); Magnesium 1.9 mg/dL (1.6-2.3); Sodium 139 mmol/L (137-145)
[2022-10-27] MEDS: LIDOCAINE HCL 1% LOCAL INJ 2 ML AMPUL 5 ML INFILTRATE (07:35)
[2022-10-27] MEDS: ERTAPENEM 1 GM/NS 50 ML 1 GM/50 ML BAG IVPB (09:15)
[2022-10-27] MEDS: busPIRone HCL 10 MG TABLET PO ×2 (09:16→12:27)
[2022-10-27] MEDS: ENOXAPARIN 40 MG/0.4 ML SYRINGE SUB-Q (09:18)
--- NOTE | 2022-10-27 11:10 | PM.DS ---
DS: Admitting Diagnosis Discharge Date 10/27/2022 Admitting Diagnosis Pyelonephritis Generalized anxiety disorder ADHD DS: Discharge Diagnosis Discharge Diagnosis (1) Pyelonephritis: Code(s): N12 - Tubulo-interstitial nephritis, not specified as acute or chronic Status: Acute (2) Infection due to ESBL-producing Escherichia coli: Code(s): A49.8 - Other bacterial infections of unspecified site; Z16.12 - Extended spectrum beta lactamase (ESBL) resistance Status: Acute (3) Generalized anxiety disorder: Code(s): F41.1 - Generalized anxiety disorder Status: Acute (4) ADHD (attention deficit hyperactivity disorder): Code(s): F90.9 - Attention-deficit hyperactivity disorder, unspecified type Status: Acute DS: Summary Hospital Course Reason for hospitalization: This is a 52-year-old female patient who was admitted to the hospital due to right-sided back and flank pain with fever and findings suggestive of urinary tract infection. Diagnosis was pyelonephritis. Hospital Course: During hospital stay patient received IV antibiotics and urine culture resulted as ESBL E coli. Antibiotics changed to ertapenem and midline catheter placed today. Patient will complete to once daily infusions a 1 g ertapenem through 11/01 with home health. Patient will be released back to work on 11/02. Status at Discharge Cognitive/behavioral status at discharge: Awake alert oriented and pleasant Functional status at discharge: independent ambulation Overall status at discharge: patient is progressing back to baseline Time Spent with Patient Time attestation: Total time spent providing and/or coordinating discharge services: Time spent: Greater than 30 minutes Exam Narrative: General: well appearing, well developed, well nourished, appears stated age. HEENT: normocephalic, atraumatic. Mucous membranes moist. EOMI, PERRLA, bilateral sclera anicteric, no conjunctival injection. Neck supple without JVD, lymphadenopathy, or bruit. Respiratory: clear to auscultation bilaterally. No rales/rhonci/wheezes. Cardiovascular: Regular rate and rhythm, normal S1-S2 upon auscultation. No murmurs, rubs, or clicks. PMI is nondisplaced, capillary re-fill less than 3 second. Abdomen: Soft, flat, no pulsatile masses, non-distended and mildly-tender. No rebound, no guarding. mild bilateral CVA tenderness, no hepatosplenomegaly. Bowel sounds present to all four quadrants. No high pitch or tinkling sounds, resonant to percussion. Extremities: No cyanosis, clubbing, or edema present. Pulses are palpable 2/2. Active ROM to all four extremities. Neuro: Alert and orientated x 4. PERRLA. Cranial nerves 2-12 intact without focal deficit. Skin: Warm, dry, and intact, without rash, erythema, or lesion. Lines: PIV Incisions: None Psych: pleasant, cooperative, normal speech, normal affect, no hallucinations, no dysarthria DS: Data Data Completed and Pending Completed studies during hospitalization: Abdomen pelvis CT, chest x-ray Labs on day of discharge: Labs from last 24 hours 10/27/22 04:52 WBC 4.2 L RBC 3.77 L Hgb 10.9 L Hct 32.7 L MCV 86.7 MCH 28.9 MCHC 33.3 RDW 12.5 Plt Count 212 MPV 10.8 H Immature Gran % (Auto) 0.5 Neut % (Auto) 54.1 Lymph % (Auto) 29.2 [place] % (Auto) 13.5 H Eos % (Auto) 2.2 Baso % (Auto) 0.5 Lymph # (Auto) 1.21 [place] # (Auto) 0.6 Eos # (Auto) 0.1 Baso # (Auto) 0.0 Abs Immat Gran (auto) 0.02 Absolute Neuts (auto) 2.3 Absolute Nucleated RBC 0.0 Nucleated RBC % 0.0 Sodium 139 Potassium 3.6 Chloride 106 Carbon Dioxide 28 Anion Gap 5 L BUN 5 L Creatinine 0.70 Estim Creat Clear Calc 74 Estimated GFR > 60 Glucose 89 Calcium 8.1 L Magnesium 1.9 Total Bilirubin 0.2 AST 21 ALT 23 Alkaline Phosphatase 70 Total Protein 6.0 L Albumin 3.1 L Preliminary micro results at discharge 10/24/22 22:10 Blood Culture - Preliminary Blood 0
[2022-10-27] MEDS: SALINE LOCK FLUSH 10 ML IV PUSH (12:27)
== END 2022-10-27 12:58 | disposition home health service (06) ==
LOC: ANHED 21:35 → ANH2MED 10-26 11:10
PROVIDERS: Emergency Medicine; Nurse Practitioner Acute Care; Admitting Provider Internal Medicine; Emergency Provider Emergency Medicine; PCP Internal Medicine; Visit Provider Internal Medicine
DX: N12 Tubulo-interstitial nephritis, not specified as acute or chronic (principal); B96.20 Unspecified Escherichia coli [E. coli] as the cause of diseases classified elsewhere; J02.9 Acute pharyngitis, unspecified; F41.1 Generalized anxiety disorder; F90.9 Attention-deficit hyperactivity disorder, unspecified type; F32.9 Major depressive disorder, single episode, unspecified; F10.90 Alcohol use, unspecified, uncomplicated; Z20.822 Contact with and (suspected) exposure to COVID-19; Z79.899 Other long term (current) drug therapy
CPT/HCPCS: 36415; 36569; 71045; 74176; 80048; 80053; 81001; 83605; 83735; 85025; 87040; 87077; 87086; 87186; 87636; 87651; 96361; 96365; 96366; 96367; 96372; 96375; 96376; 99285; A9270; G0378; J0696; J1335; J1650; J1885; J2405; J7030

== ENCOUNTER 2022-11-03 15:31 | Outpatient (CLI) | payer OTHER, SELFPAY ==
[2022-11-03 16:13] LABS: Basophils Absolute Auto 0.04 K/mm3 (0.00-0.10); Basophils Percent Auto 0.8 % (0.0-1.0); Eosinophils Absolute Auto 0.15 K/mm3 (0.02-0.50); Eosinophils Percent Auto 2.8 % (1.0-6.0); Hematocrit 38.5 % (35.0-49.0); Hemoglobin 12.8 g/dL (12.0-15.0); Immature Granulocyte Absolute 0.02 K/mm3 (0.00-0.00); Immature Granulocyte Percent A 0.4 % (0.0-0.0); Lymphocytes Absolute Auto 1.81 K/mm3 (1.10-4.50); Lymphocytes Percent Auto 34.3 % (18.0-42.0); Mean Corpuscular HGB Conc 33.2 g/dL (32.0-36.0); Mean Corpuscular Hemoglobin 28.8 pg (27.0-31.0); Mean Corpuscular Volume 86.5 fL (78.0-102.0); Mean Platelet Volume 10.2 fl (9.2-11.8); Monocytes Absolute Auto 0.45 K/mm3 (0.10-0.90); Monocytes Percent Auto 8.5 % (2.0-11.0); Neutrophils Absolute Auto 2.8 K/mm3 (1.7-7.2); Neutrophils Percent Auto 53.2 % (50.0-70.0); Platelet Count Result 377 K/mm3 (150-420); Red Blood Count 4.45 M/mm3 (4.20-5.40); Red Cell Distribution Width 12.5 % (11.6-14.4); White Blood Count 5.3 K/mm3 (4.8-10.8)
[2022-11-03 16:37] LABS: Alanine Aminotransferase 76 U/L (14-59); Albumin Level 3.9 g/dL (3.4-5.0); Alkaline Phosphatase 107 U/L (46-116); Anion Gap 7 mmol/L (8-16); Aspartate Amino Transferase 27 U/L (15-37); Bilirubin,Total 0.3 mg/dL (0.00-1.00); Blood Urea Nitrogen 21 mg/dL (7-18); Calcium 9.5 mg/dL (8.5-10.1); Carbon Dioxide 28 mmol/L (21-32); Chloride 101 mmol/L (98-108); Estimated Glomerular Filt Rate > 60; Glucose 86 mg/dL (70-99); Osmolality Calculated 284 mOsm/kg (285-295); Potassium 4.2 mmol/L (3.5-5.1); Sodium 136 mmol/L (136-145); Total Protein 7.6 g/dL (6.4-8.2)
== END 2022-11-03 15:32 | disposition home or self-care (01) ==
PROVIDERS: PCP Internal Medicine; Visit Provider Internal Medicine
DX: R19.7 Diarrhea, unspecified (principal)
CPT/HCPCS: 36415; 80053; 85025

== ENCOUNTER 2022-11-04 07:02 | Outpatient (CLI) | payer OTHER, SELFPAY | END 2022-11-04 07:03 | disposition home or self-care (01) | LOC: CHSLAB 07:03 | PROVIDERS: PCP Internal Medicine; Visit Provider Internal Medicine | DX: R19.7 Diarrhea, unspecified (principal) | CPT/HCPCS: 87324 ==

== ENCOUNTER 2022-11-15 16:54 | Outpatient (CLI) | payer OTHER, SELFPAY ==
[2022-11-15 17:08] LABS: Basophils Absolute Auto 0.04 K/mm3 (0.00-0.10); Basophils Percent Auto 0.9 % (0.0-1.0); Eosinophils Percent Auto 2.2 % (1.0-6.0); Hematocrit 37.1 % (35.0-49.0); Hemoglobin 12.6 g/dL (12.0-15.0); Immature Granulocyte Absolute 0.01 K/mm3 (0.00-0.00); Immature Granulocyte Percent A 0.2 % (0.0-0.0); Lymphocytes Absolute Auto 1.84 K/mm3 (1.10-4.50); Lymphocytes Percent Auto 39.9 % (18.0-42.0); Mean Corpuscular Hemoglobin 29.1 pg (27.0-31.0); Mean Corpuscular Volume 85.7 fL (78.0-102.0); Mean Platelet Volume 10.1 fl (9.2-11.8); Monocytes Absolute Auto 0.35 K/mm3 (0.10-0.90); Monocytes Percent Auto 7.6 % (2.0-11.0); Neutrophils Absolute Auto 2.3 K/mm3 (1.7-7.2); Neutrophils Percent Auto 49.2 % (50.0-70.0); Platelet Count Result 288 K/mm3 (150-420); Red Blood Count 4.33 M/mm3 (4.20-5.40); Red Cell Distribution Width 12.6 % (11.6-14.4); White Blood Count 4.6 K/mm3 (4.8-10.8)
[2022-11-15 17:09] LABS: Appearance Urine Clear (Clear); Bilirubin Urine Negative (Negative); Blood Urine Negative (Negative); Color Urine Light Yellow (Yellow); Glucose Urine UA Negative (Negative); Ketones Urine Negative (Negative); Leukocyte Esterase Ur 1+ (Negative); Nitrate Urine Positive (Negative); Protein Urine Negative (Negative); Urobilinogen Urine 0.2 mg/dL (0.2-1.0)
[2022-11-15 17:49] LABS: Add Urine Microscopic? YES; Bacteria Urine 3+ /hpf; RBC Urine 0-2 /hpf (0-2); Squamous Epithelial Cell Urine Few /hpf (Few)
[2022-11-15 18:38] LABS: Alanine Aminotransferase 33 U/L (14-59); Alkaline Phosphatase 109 U/L (46-116); Anion Gap 11 mmol/L (8-16); Aspartate Amino Transferase 19 U/L (15-37); Bilirubin,Total 0.4 mg/dL (0.00-1.00); Blood Urea Nitrogen 14 mg/dL (7-18); Calcium 9.7 mg/dL (8.5-10.1); Carbon Dioxide 26 mmol/L (21-32); Chloride 102 mmol/L (98-108); Estimated Glomerular Filt Rate > 60; Glucose 87 mg/dL (70-99); Osmolality Calculated 287 mOsm/kg (285-295); Potassium 4.1 mmol/L (3.5-5.1); Sodium 139 mmol/L (136-145); Total Protein 7.4 g/dL (6.4-8.2)
== END 2022-11-15 16:55 | disposition home or self-care (01) ==
LOC: CHSLAB 16:57
PROVIDERS: PCP Internal Medicine; Visit Provider Internal Medicine
DX: N10 Acute pyelonephritis (principal)
CPT/HCPCS: 36415; 80053; 81001; 85025; 87077; 87086; 87088; 87186

== ENCOUNTER 2023-01-12 09:49 | Outpatient (CLI) | payer OTHER, SELFPAY ==
--- NOTE | ~2023-01-12 | XR_ITS ---
XR chest 2V DATE: 01/12/2023 10:34 INDICATION: Fever, cough for 3 days. Nausea. TECHNIQUE: 2 views COMPARISON: 10/26/2022 portable AP chest FINDINGS: Normal heart size. No hilar or mediastinal enlargement. No pulmonary infiltrate or consolidation, pleural effusion or pulmonary vascular congestion or pneumo thorax. No hilar or mediastinal enlargement. Included skeletal structures are unremarkable. IMPRESSION: No active cardiopulmonary disease Reviewed, dictated and finalized at location B. MINER
[2023-01-12 10:22] LABS: Appearance Urine Clear (Clear); Basophils Absolute Auto 0.03 K/mm3 (0.00-0.10); Basophils Percent Auto 0.4 % (0.0-1.0); Bilirubin Urine Negative (Negative); Blood Urine Trace-Intact (Negative); Color Urine Light Yellow (Yellow); Eosinophils Absolute Auto 0.04 K/mm3 (0.02-0.50); Eosinophils Percent Auto 0.5 % (1.0-6.0); Glucose Urine UA Negative (Negative); Hematocrit 36.5 % (35.0-49.0); Hemoglobin 12.5 g/dL (12.0-15.0); Immature Granulocyte Absolute 0.03 K/mm3 (0.00-0.00); Immature Granulocyte Percent A 0.4 % (0.0-0.0); Ketones Urine Negative (Negative); Leukocyte Esterase Ur 1+ (Negative); Lymphocytes Absolute Auto 0.84 K/mm3 (1.10-4.50); Lymphocytes Percent Auto 11.4 % (18.0-42.0); Mean Corpuscular HGB Conc 34.2 g/dL (32.0-36.0); Mean Corpuscular Hemoglobin 29.2 pg (27.0-31.0); Mean Corpuscular Volume 85.3 fL (78.0-102.0); Mean Platelet Volume 10.4 fl (9.2-11.8); Monocytes Absolute Auto 0.73 K/mm3 (0.10-0.90); Monocytes Percent Auto 9.9 % (2.0-11.0); Neutrophils Absolute Auto 5.7 K/mm3 (1.7-7.2); Neutrophils Percent Auto 77.4 % (50.0-70.0); Nitrate Urine Negative (Negative); Platelet Count Result 206 K/mm3 (150-420); Protein Urine Negative (Negative); Red Blood Count 4.28 M/mm3 (4.20-5.40); Red Cell Distribution Width 12.9 % (11.6-14.4); Urobilinogen Urine 0.2 mg/dL (0.2-1.0); White Blood Count 7.4 K/mm3 (4.8-10.8)
[2023-01-12 10:30] LABS: Add Urine Microscopic? YES
[2023-01-12 10:31] LABS: Bacteria Urine 2+ /hpf; RBC Urine 0-2 /hpf (0-2); Squamous Epithelial Cell Urine Moderate /hpf (Few)
[2023-01-12 10:38] LABS: Alanine Aminotransferase 30 U/L (14-59); Albumin Level 3.1 g/dL (3.4-5.0); Alkaline Phosphatase 109 U/L (46-116); Anion Gap 6 mmol/L (8-16); Aspartate Amino Transferase 14 U/L (15-37); Bilirubin,Total 0.4 mg/dL (0.00-1.00); Blood Urea Nitrogen 9 mg/dL (7-18); Calcium 8.8 mg/dL (8.5-10.1); Carbon Dioxide 32 mmol/L (21-32); Chloride 98 mmol/L (98-108); Estimated Glomerular Filt Rate > 60; Glucose 134 mg/dL (70-99); Osmolality Calculated 282 mOsm/kg (285-295); Potassium 3.3 mmol/L (3.5-5.1); Sodium 136 mmol/L (136-145); Total Protein 7.6 g/dL (6.4-8.2)
[2023-01-12 10:41] LABS: Lactic Acid Reflex 1.3 mmol/L (0.4-2.0)
[2023-01-12 10:51] LABS: Strep Group A RT-PCR NOT DETECTED (Negative)
[2023-01-12 10:55] LABS: Influenza A QL RT-PCR Negative (Negative); Influenza B QL RT-PCR Negative (Negative); SARS-CoV-2 RNA PCR Negative (Negative)
== END 2023-01-12 09:50 | disposition home or self-care (01) ==
LOC: CHSLAB 09:51
PROVIDERS: PCP Internal Medicine; Visit Provider Internal Medicine
DX: R50.9 Fever, unspecified (principal); R11.0 Nausea; R30.0 Dysuria
CPT/HCPCS: 36415; 71046; 80053; 81001; 83605; 85025; 87040; 87077; 87086; 87088; 87186; 87636; 87651

== ENCOUNTER 2023-01-18 15:30 | Outpatient (CLI) | payer OTHER, SELFPAY ==
[2023-01-18 16:06] LABS: Anion Gap 6 mmol/L (8-16); Blood Urea Nitrogen 15 mg/dL (7-18); Calcium 9.3 mg/dL (8.5-10.1); Carbon Dioxide 33 mmol/L (21-32); Chloride 99 mmol/L (98-108); Estimated Glomerular Filt Rate 47; Glucose 89 mg/dL (70-99); Osmolality Calculated 285 mOsm/kg (285-295); Potassium 4.3 mmol/L (3.5-5.1); Sodium 138 mmol/L (136-145)
== END 2023-01-18 15:31 | disposition home or self-care (01) ==
LOC: CHSLAB 15:33
PROVIDERS: PCP Internal Medicine; Visit Provider Internal Medicine
DX: E87.6 Hypokalemia (principal)
CPT/HCPCS: 36415; 80048

== ENCOUNTER → 2023-01-25 12:38 | Outpatient (CLI) | payer OTHER, SELFPAY ==
--- NOTE | ~2023-01-25 | MR_ITS ---
EXAMINATION: MR abdomen wo/w con DATE: 01/25/2023 13:43 INDICATION: Neoplasm of uncertain etiology. Left kidney mass. TECHNIQUE: Magnetic resonance imaging (MRI) of the abdomen was performed without and with 14 mL Multi Marva intravenous contrast. COMPARISON: CT abdomen and pelvis 10/24/2022, 10/30/2021, 06/04/2018 FINDINGS: There is diffuse hepatic steatosis. The gallbladder, spleen, pancreas, adrenal glands, and right kidn ey are normal. There is cortical thinning of left kidney. There are cysts in left kidney measuring up to 8 mm. There is an 8 mm hypoenhancing mass in left kidney. There are no dilated loops of bowel. Th ere are no pathologically enlarged lymph nodes. There is no free intraperitoneal fluid. IMPRESSION: 1. 8 mm hypoenhancing mass in left kidney suspicious for renal cell carcinoma. Reviewed, dictated and finalized at location A. MILITARY ANALYST
== END ==
PROVIDERS: PCP Internal Medicine; Visit Provider Internal Medicine
DX: C64.2 Malignant neoplasm of left kidney, except renal pelvis (principal)
CPT/HCPCS: 74183; A9577

== ENCOUNTER 2023-02-02 17:01 | Outpatient (CLI) | payer OTHER, SELFPAY ==
[2023-02-02 17:18] LABS: Appearance Urine Clear (Clear); Bilirubin Urine Negative (Negative); Blood Urine Negative (Negative); Color Urine Light Yellow (Yellow); Glucose Urine UA Negative (Negative); Ketones Urine Negative (Negative); Leukocyte Esterase Ur Trace (Negative); Nitrate Urine Negative (Negative); Protein Urine Negative (Negative); Urobilinogen Urine 0.2 mg/dL (0.2-1.0)
[2023-02-02 17:26] LABS: Add Urine Microscopic? YES; Bacteria Urine Trace /hpf; RBC Urine None seen /hpf (0-2); Squamous Epithelial Cell Urine Few /hpf (Few); WBC Urine None seen /hpf (0-3)
[2023-02-02 17:48] LABS: Anion Gap 3 mmol/L (8-16); Blood Urea Nitrogen 14 mg/dL (7-18); Calcium 9.4 mg/dL (8.5-10.1); Carbon Dioxide 33 mmol/L (21-32); Chloride 99 mmol/L (98-108); Estimated Glomerular Filt Rate 57; Glucose 100 mg/dL (70-99); Osmolality Calculated 280 mOsm/kg (285-295); Sodium 135 mmol/L (136-145)
== END 2023-02-02 17:02 | disposition home or self-care (01) ==
LOC: CHSLAB 17:03
PROVIDERS: PCP Internal Medicine; Visit Provider Internal Medicine
DX: N39.0 Urinary tract infection, site not specified (principal)
CPT/HCPCS: 36415; 80048; 81001; 87086

== ENCOUNTER 2023-04-08 11:10 | Outpatient (CLI) | payer OTHER, SELFPAY ==
--- NOTE | ~2023-04-08 | CT_ITS ---
EXAMINATION: CT abdomen pelvis w con DATE: 04/08/2023 12:09 INDICATION: Acute onset left lower quadrant abdominal pain TECHNIQUE: Computed tomography (CT) of the abdomen and pelvis was performed with 100 mL Omnipaque-350 intravenous contrast. Automated exposure control and iterative reconstruction technique were employe d. The dose-length product was 605.20 mGy-cm. COMPARISON: CT abdomen and pelvis dated 10/24/2022 and 06/04/2018 and MRI dated 01/25/2023 FINDINGS: Calcified and noncalcified granulomata in the right lower lobe without change since 06/04/2018. Heart s ize is normal. No pericardial or pleural effusion. Diffuse hepatic steatosis with focal sparing along the gallbladder fossa. Spleen, pancreas, bilateral adrenal glands and right kidney are normal. 11 mm cyst at the upper pole of the left kidney. Small region of cortical scarring at the interpolar regio n of the left kidney at the site of a prior enhancing lesion consistent with interval ablation or res ection. No bowel obstruction. Postoperative changes of prior appendectomy. There are a few diverticul a along the sigmoid colon without adjacent inflammatory stranding to suggest diverticulitis. There is a small fat anterior margin of the distal descending colon consistent with epiploic appendagitis. Th e uterus is not identified and has likely been surgically resected. Bladder is normal. No abscess or free intraperitoneal gas or fluid. No pathologically enlarged abdominal or pelvic lymphadenopathy. Mi ld thoracic and lumbar spondylosis with chronic mild anterior wedging at T11-12. IMPRESSION: 1. Acute epiploic appendagitis. 2. Mild diffuse hepatic steatosis. 3. Interval ablation or resection of a prior enhancing lesion at the mid left kidney. Correlate with history. Reviewed, dictated and finalized at location A. ENT FOLDER IMPRESSION: 1. Acute epiploic appendagitis. 2. Mild diffuse hepatic steatosis. 3. Interval ablation or resection of a prior enhancing lesion at the mid left k idney. Correlate with history.
[2023-04-08 11:25] LABS: Appearance Urine Clear (Clear); Basophils Absolute Auto 0.03 K/mm3 (0.00-0.10); Basophils Percent Auto 0.5 % (0.0-1.0); Bilirubin Urine Negative (Negative); Blood Urine Negative (Negative); Eosinophils Absolute Auto 0.13 K/mm3 (0.02-0.50); Eosinophils Percent Auto 2.2 % (1.0-6.0); Glucose Urine UA Negative (Negative); Hematocrit 39.7 % (35.0-49.0); Hemoglobin 13.2 g/dL (12.0-15.0); Immature Granulocyte Absolute 0.02 K/mm3 (0.00-0.00); Immature Granulocyte Percent A 0.3 % (0.0-0.0); Ketones Urine Negative (Negative); Leukocyte Esterase Ur Negative (Negative); Lymphocytes Absolute Auto 1.49 K/mm3 (1.10-4.50); Mean Corpuscular HGB Conc 33.2 g/dL (32.0-36.0); Mean Corpuscular Hemoglobin 28.1 pg (27.0-31.0); Mean Corpuscular Volume 84.5 fL (78.0-102.0); Mean Platelet Volume 9.4 fl (9.2-11.8); Monocytes Absolute Auto 0.39 K/mm3 (0.10-0.90); Monocytes Percent Auto 6.5 % (2.0-11.0); Neutrophils Absolute Auto 3.9 K/mm3 (1.7-7.2); Neutrophils Percent Auto 65.5 % (50.0-70.0); Nitrate Urine Negative (Negative); Platelet Count Result 278 K/mm3 (150-420); Protein Urine Negative (Negative); Red Cell Distribution Width 13.1 % (11.6-14.4); Specific Grav Ur 1.025 (1.010-1.020); Urobilinogen Urine 0.2 mg/dL (0.2-1.0)
[2023-04-08 11:28] LABS: Add Urine Microscopic? NO; Color Urine Dark Yellow (Yellow)
[2023-04-08 11:47] LABS: Alanine Aminotransferase 39 U/L (14-59); Albumin Level 4.2 g/dL (3.4-5.0); Alkaline Phosphatase 107 U/L (46-116); Anion Gap 10 mmol/L (8-16); Aspartate Amino Transferase 21 U/L (15-37); Bilirubin,Total 0.4 mg/dL (0.00-1.00); Blood Urea Nitrogen 15 mg/dL (7-18); Calcium 9.3 mg/dL (8.5-10.1); Carbon Dioxide 30 mmol/L (21-32); Chloride 102 mmol/L (98-108); Estimated Glomerular Filt Rate > 60; Glucose 102 mg/dL (70-99); Osmolality Calculated 294 mOsm/kg (285-295); Potassium 3.5 mmol/L (3.5-5.1); Sodium 142 mmol/L (136-145)
== END 2023-04-08 11:11 | disposition home or self-care (01) ==
PROVIDERS: PCP Internal Medicine; Visit Provider Internal Medicine
DX: R10.32 Left lower quadrant pain (principal); K63.89 Other specified diseases of intestine; K76.0 Fatty (change of) liver, not elsewhere classified
CPT/HCPCS: 36415; 74177; 80053; 81003; 85025; 87086; Q9967

== ENCOUNTER 2023-04-13 15:53 | Outpatient (CLI) | payer OTHER, SELFPAY ==
[2023-04-13 16:37] LABS: Appearance Urine Slightly Cloudy (Clear); Bilirubin Urine Negative (Negative); Blood Urine Negative (Negative); Color Urine Light Yellow (Yellow); Glucose Urine UA Negative (Negative); Ketones Urine Negative (Negative); Leukocyte Esterase Ur 1+ (Negative); Nitrate Urine Negative (Negative); Protein Urine Negative (Negative); Urobilinogen Urine 0.2 mg/dL (0.2-1.0)
[2023-04-13 16:43] LABS: Add Urine Microscopic? YES; Bacteria Urine 3+ /hpf; RBC Urine None seen /hpf (0-2); Squamous Epithelial Cell Urine Few /hpf (Few); WBC Urine 21-50 /hpf (0-3)
== END 2023-04-13 15:54 | disposition home or self-care (01) ==
LOC: CHSLAB 15:54
PROVIDERS: PCP Internal Medicine; Visit Provider Internal Medicine
DX: N39.0 Urinary tract infection, site not specified (principal)
CPT/HCPCS: 81001; 87077; 87086; 87088; 87186

== ENCOUNTER 2023-04-27 15:39 | Outpatient (CLI) | payer OTHER, SELFPAY ==
[2023-04-27 16:58] LABS: Appearance Urine Clear (Clear); Bilirubin Urine Negative (Negative); Blood Urine Negative (Negative); Color Urine Yellow (Yellow); Glucose Urine UA Negative (Negative); Ketones Urine Negative (Negative); Leukocyte Esterase Ur Negative (Negative); Nitrate Urine Negative (Negative); Protein Urine Negative (Negative); Specific Grav Ur <= 1.005 (1.010-1.020); Urobilinogen Urine 0.2 mg/dL (0.2-1.0); pH Urine 5.5 (5.0-8.0)
[2023-04-27 17:09] LABS: Add Urine Microscopic? NO
== END 2023-04-27 15:40 | disposition home or self-care (01) ==
LOC: CHSLAB 15:41
PROVIDERS: PCP Internal Medicine; Visit Provider Internal Medicine
DX: N39.0 Urinary tract infection, site not specified (principal)
CPT/HCPCS: 81003; 87086

== ENCOUNTER 2023-11-17 07:01 | Outpatient (CLI) | payer OTHER, SELFPAY ==
[2023-11-17 07:20] LABS: Hematocrit 40.7 % (35.0-49.0); Hemoglobin 13.9 g/dL (12.0-15.0); Mean Corpuscular HGB Conc 34.2 g/dL (32-36); Mean Corpuscular Hemoglobin 28.5 pg (27.0-31.0); Mean Corpuscular Volume 83.6 fL (78.0-102.0); Platelet Count Result 270 K/mm3 (150-420); Red Blood Count 4.87 M/mm3 (4.20-5.40); Red Cell Distribution Width 12.9 % (11.6-14.4); White Blood Count 3.7 K/mm3 (4.8-10.8)
[2023-11-17 07:21] LABS: Add Urine Microscopic? NO; Appearance Urine Clear (Clear); Bilirubin Urine Negative (Negative); Blood Urine Negative (Negative); Color Urine Yellow (Yellow); Glucose Urine UA Negative (Negative); Ketones Urine Negative (Negative); Leukocyte Esterase Ur Negative (Negative); Nitrate Urine Negative (Negative); Protein Urine Negative (Negative); Specific Grav Ur 1.025 (1.010-1.020); Urobilinogen Urine 0.2 mg/dL (0.2-1.0)
[2023-11-17 07:49] LABS: Band Neutrophils Percent 0 % (0-6); Basophils Percent Manual 0 % (0-1); Eosinophils Absolute Manual 0.22 K/mm3 (0.02-0.50); Eosinophils Percent Manual 6 % (1-6); Lymphocytes Absolute Manual 1.33 K/mm3 (1.1-4.5); Lymphocytes Percent Manual 36 % (18-44); Metamyelocytes Percent 0 %; Monocytes Absolute Manual 0.25 K/mm3 (0.1-0.90); Monocytes Percent Manual 7 % (3-9); Myelocytes Percent 1 %; Neutrophils Absolute Manual 1.85 K/mm3 (1.7-7.2); Neutrophils Percent Manual 50 % (46-73); Platelet Estimate Adequate (Adequate); Total Cells Counted 100
[2023-11-17 08:18] LABS: Alanine Aminotransferase 39 U/L (14-59); Albumin Level 4.1 g/dL (3.4-5.0); Alkaline Phosphatase 109 U/L (46-116); Anion Gap 9 mmol/L (4-12); Aspartate Amino Transferase 21 U/L (15-37); Bilirubin,Total 0.5 mg/dL (0.00-1.00); Blood Urea Nitrogen 14 mg/dL (7-18); Calcium 9.3 mg/dL (8.5-10.1); Carbon Dioxide 30 mmol/L (21-32); Chloride 100 mmol/L (98-108); Estimated Glomerular Filt Rate 57; Free T4 Free Thyroxine 0.94 ng/dL (0.76-1.46); Glucose 100 mg/dL (70-99); Osmolality Calculated 288 mOsm/kg (285-295); Potassium 4.3 mmol/L (3.5-5.1); Sodium 139 mmol/L (136-145); Thyroid Stimulating Hormone 1.88 uIU/mL (0.36-3.74); Total Protein 7.5 g/dL (6.4-8.2)
== END 2023-11-17 07:02 | disposition home or self-care (01) ==
LOC: CHSLAB 07:03
PROVIDERS: PCP Internal Medicine; Visit Provider Internal Medicine
DX: Z00.00 Encounter for general adult medical examination without abnormal findings (principal)
CPT/HCPCS: 36415; 80053; 81003; 84439; 84443; 85025

== ENCOUNTER 2024-05-16 07:13 | Outpatient (CLI) | payer OTHER, SELFPAY ==
--- OUTSIDE RECORDS SUMMARY | 2024-05-16 07:16 | XMS_ITS | Patient Health Record ---
Author Organization [facility] Address [address] [place] [address] Care Team Providers Care Comber Tender Name Role Phone SONU MILIAN [phone] Allergies Allergen (clinical drug ingredient) Drug/Non Drug Allergy documented on EMR Reaction Allergy Type Onset Date Status Keflex Unknown Drug Allergy Active sulfacetamide Sulfacetamide Unknown Drug Allergy Active Results Component Value Reference Range Notes Rapid Strep Reviewed date:05/27/2023 02:51:32 PM Interpretation:Positive Performing Lab: Notes/Report: Positive Rapid Strep positive Control 04/13/2023 Expiration Date 09/11/2024 Lot Number [id number] Reason For Referral No Information Medications Medication SIG (Take, Route, Frequency, Duration) Notes Start Date End Date Status busPIRone HCl 10 MG Oral for 90 Days Active Bromfed DM 30-2-10 MG/5ML 10ml Orally every 8 hrs for 5 days As needed cough 05/27/2023 Active Rexulti 1 MG Oral for 90 Days Active amLODIPine Besylate 5 MG TAKE 1 TABLET B Y MOUTH ONCE DAILY Oral for 90 Days Active methylPREDNISolone 4 MG as directed ON P ACKAGE Orally DAILY for 6 days 05/27/2023 Active Augmentin 875-125 MG 1 tablet take with meals Orally every 12 hrs for 10 days 05/27/2023 Active Viibryd Active Fluconazole 200 MG 1 tablet Orally daily for 1 days As needed if symptoms of yeast infection with antibiotic use 05/27/2023 Active Social History Tobacco Use: Social History Observation Description Date Details (start date - stop date) Never Smoker NA - NA Tobacco Control (Standard) Question Answer Notes Tobacco use: Nonsmoker Vital Signs Heart Rate 111 /min 05/27/2023 Temperature 98.8 degrees Fahrenheit 05/27/2023 Respiratory Rate 16 /min 05/27/2023 Blood pressure diastolic 71 mm Hg 05/27/2023 Oximetry 97 % 05/27/2023 Height 62 in 05/27/2023 Blood pressure systolic 116 mm Hg 05/27/2023 Weight 156 lbs 05/27/2023 BMI 28.53 kg/m2 05/27/2023 Encounters Encounter Location Date Provider Diagnosis [facility] [address] [place] [address] 05/27/2023 SONU PATRICEENBECK Pharyngitis, unspeci fied etiology J02.9 Assessments Encounter Date Diagnosis (ICD Code) Assessment Notes Treatment Notes Treatment Clinical Notes Section Notes 05/27/2023 Pharyngitis, unspecified etiology (ICD-10 - J02.9) Take your antibiotics as directed. Do not stop taking them just because you feel better. You need to take the full course of antibiotics. Strep throat can spread to others until 24 hours after you begin taking antibiotics. During this time, avoid contact with other people at work, school, or home, especially infants and children. Do not sneeze or cough on others, and wash your hands often. Keep your drinking glass and eating utensils separate from those of others. Wash these items well in hot, soapy water. Gargle with warm salt water at least once each hour to help reduce swelling and make your throat feel better. Use 1 teaspoon of salt mixed in 8 fluid ounces of warm water. Take an dahy-acw-xiutvlw pain medication, such as acetaminophen (Tylenol), ibuprofen (Advil, Motrin), or naproxen (Aleve). Read and follow all instructions on the label. Try an egar-cfe-voobhvh anesthetic throat spray or throat lozenges, which may help relieve throat pain. Drink plenty of fluids. Fluids may help soothe an irritated throat. Hot fluids, such as tea or soup, may help your throat feel better. Eat soft solids and drink plenty of clear liquids. Flavored ice pops, ice cream, scrambled eggs, sherbet, and gelatin dessert (such as Jell-O) may also soothe the throat. Get lots of rest. Do not smoke, and avoid secondhand smoke. If you need help quitting, talk to your doctor about stop-smoking programs and medicines. These can increase your chances of quitting for good. 05/27/2023 Other Take medications as directed. Return for recheck in 1 week if your symptoms are not resolving. Return sooner if worsening symptoms or persistent fever. Go to Emergency Room if shortness of breath, chest pain, or fever above 103.5. Risks, benefits, and side effects of medications discussed with patient. Agrees with treatment plan. Plan Of Treatment No Information Insurance Providers Payer Name Payer Address Payer Phone Subscriber Number Group Number Insured Name Patient Relationship to Insured Coverage Start Date Coverage End Date [facility] [address] [address] [place] [address] [id number] Jessica Lopez Self - patient is the insured Medical (General) History Medical History History ICD Code HYPERTENSION Depression/Anxiety covid vaccinated Surgical History Surgery Date(Month/Year) hysterectomy Appendectomy kidney ablasion
--- OUTSIDE RECORDS SUMMARY | 2024-05-16 07:17 | XMS_ITS ---
Author Organization [facility] [place] Address [address] [facility] [address] [place] [address] Care Team Providers Care Oceanographic Meteorologist Name Role Phone FemiKanika reyes Unavailable [phone] REASON FOR VISIT Adderall Medications Medication SIG (Take, Route, Fr equency, Duration) Notes Start Date End Date Status Adderall XR 30 MG 1 capsule in the mor gaby Oral Once a day for 30 days 01/12/2024 Active Social History Sex Assigned At : Social History Observation Description Sex Assigned At Female Encounters Encounter Location Date Provider Diagnosis [facility] [email or web address] [place] [address] [facility] [address] [facility] [address] [place] [address] 04/16/2024 Kanika Anders Plan Of Treatment Medication Medication Name Sig Start Date Stop Date Notes Adderall XR 30 MG 1 capsule in the mor gaby Oral Once a day for 30 days 01/12/2024 Next Appt Details Provider Name:Kanika Anders , 05/21/2024 04:15:00 PM, [address], [facility] [address], [place], [address], Progress Notes * HANNAH KINGDOB:1970 (53 yo F)Acc No.[id number]:04/16/2024 Patient: HANNAH HANEY :1970 A ge:53 Y S ex:Female Address:[address] [place] [address] [place], [address] * Refills Refill Adderall XR Capsule Extended Release 24 Hour, 30 MG, Oral, 30 Capsule, 1 capsule in the morning, Once a day, 30 days, Refills=0 * true * Date: Generated for Blake sorto/Fanny/Pradip on: 0 05/16/2024 07:16 AM CDT
--- OUTSIDE RECORDS SUMMARY | 2024-05-16 07:17 | XMS_ITS | Referral Summary ---
Author Organization [facility] Address [address] [place] [address] Care Team Providers Care Snuff Container Inspector Name Role Phone Romeo Dobbs MD Primary Care Provider Encounters Date Type Department Care Team Description 03/27/2024 3:20 PM FINISH MENDER Office Visit [facility] [address] [place] [id number] Clifford Aranda MD Left kidney mass (Primary Dx) 03/27/2024 1:06 PM FINISH MENDER - 03/27/2024 11:59 PM FINISH MENDER Hospital Encounter [facility] [address] [address] Clifford Aranda MD Left kidney mass Discharge Disposition: Discharge to home or self care from Last 3 Months Allergies Active Allergy Reactions Criticality Noted Date Comments Cephalexin Hives Medium 10/01/2019 Sulfa (Sulfonamide Antibiotics) Other (See comments) Low 10/01/2019 Causes Low Blood sugar Sulfacetamide Other (See comments) Low 09/26/2023 Medications busPIRone (BUSPAR) 10 mg tabletIndications :Generalized Anxiety Disorder Take 1 tablet (10 mg total) by mouth 3 (three) times a day Active dextroamphetamine -amphetamine XR (Adderall XR) 30 mg 24 hr capsuleIndication s:Attention-Defic it Hyperactivity Disorder Take 1 capsule (30 mg total) by mouth every morning Active vilazodone (Viibryd) 40 mg tabletIndications :major depressive disorder Take 1 tablet (40 mg total) by mouth pipe supervisor before breakfast Active brexpiprazole (Rexulti) 1 mg tabletIndications :Depression Treatment Adjunct Take 1 tablet (1 mg total) by mouth pipe supervisor before breakfast Active amLODIPine (NORVASC) 5 mg tabletIndications :hypertension Take 1 tablet (5 mg total) by mouth pipe supervisor before breakfast 3 Active rizatriptan (MAXALT) 10 mg tabletIndications :Migraine Take 1 tablet (10 mg total) by mouth once as needed for migraine 3 Active dextroamphetamine -amphetamine (ADDERALL) 10 mg tabletIndications :Attention-Defici t Hyperactivity Disorder Take 1 tablet (10 mg total) by mouth with lunch Active cholecalciferol (VITAMIN D-3) 5,000 unit tabletIndications :Prevention of Vitamin D Deficiency Take 1 tablet (5,000 Units total) by mouth pipe supervisor before breakfast Active acidophilus-pecti n, citrus 100 million cell-10 mg capsuleIndication s:Gut Health Take 1 tablet by mouth pipe supervisor before breakfast Active cranberry-vitamin C-mannose 250-30-50 mg tablet,chewableIn dications:Recurre nt UTI Take 1 g by mouth 2 (two) times a day 180 tablet 3 4 025 Active Additional Information Patient not taking.Reported on 07/21/2023 nitrofurantoin monohydrate (MACROBID) 100 mg capsuleIndication s:Postcoital UTI Take 1 tablet by mouth after intercourse 30 capsule 5 4 Active Additional Information Patient not taking.Reported on 07/21/2023 d-mannose powder Take by mouth Active estradioL (VAGIFEM) 10 mcg tabletIndications :Recurrent UTI Place one (1) tablet in the vagina two (2) nights a week 18 tablet 11 4 Active Active Problems Problem Noted Date Diagnosed Date S/P ureteral reimplantation 09/26/2023 Recurrent UTI 07/21/2023 Assessment & Plan (07/21/2023 5:08 PM CDT): She was instructed to call our office either after she has given a specimen or with signs or symptoms of an UTI. A urine specimen will be sent to assess for an UTI. Empiric treatment will be started if indicated based on symptoms. We discussed UTI prevention strategies including use of vaginal estrogen, Vitamin C supplementation, D-mannose, methenamine, cranberry tablet supplementation, voiding after intercourse, scheduled voiding every 2-3 hours, and antibiotic suppression. She will plan to use the following UTI prevention strategies: use of vaginal estrogen, D-mannose, scheduled voiding every 2-3 hours, and post-coital Macrobid (already has been prescribed by urology) . -No CT evidence of nephrolithiasis in 05/2023 -plan for cystoscopy -currently on post coital Macrobid so plan to defer methenamine at this time -MDR E.coli, consider referral to ID if UTIs persist despite above prevention strategies Pelvic floor dysfunction in female 07/21/2023 Assessment & Plan (07/21/2023 5:09 PM CDT): On examination, we elicited Moderate pain to palpation of the pelvic floor muscles. Patient was also found to have other musculoskeletal dysfunction including intermittent back pain. We discussed the role that her pelvic floor muscle dysfunction is likely playing in her urinary symptoms. Management options for levator ani/obturator pain/spasm were discussed including pelvic floor physical therapy. A prescription for PFPT was given. Vaginal atrophy 07/21/2023 Assessment & Plan (07/21/2023 5:11 PM CDT): -We discussed use of vaginal estrogen cream. I discussed the WHI study and the risks of systemic estrogen use and explained that with vaginal application minimal systemic absorption of estrogen occurs. We discussed vaginal atrophy and the effect a hypoestrogenic state can have on vaginal dryness, dyspareunia, risk of erosion, recurrent UTIs, and cystitis.. At the end of the discussion the patient will continue vaginal estrogen. She is currently using Vagifem, given degree of atrophy, I would recommend going back to vaginal estrogen cream once current Vagifem supply completed. I also recommend using pea sized amount of cream to the vaginal opening/urethra 2-3 times per week. Left renal mass 03/30/2023 Assessment & Plan (03/31/2023 7:52 AM FINISH MENDER): Incidentally diagnosed on MRI during workup for recurrent UTI, referred to urology and IR and now status post planned microwave ablation without complications. - status post L renal mass microwave ablation, no specimens collected - pain control with APAP, oxycodone, IV dilaudid PRN - antiemetics PRN - Urology consulted, follow up appointment arranged with Dr. Aranda in 05/[address] prior to appointment - Okay for discharge today - IR will coordinate follow-up - VIR recommendations for discharge medications: Oxycodone 5 mg 1 tab po Q 4 hours prn pain #10, no refills Zofran 8 mg 1 tab po BID prn nausea #10, no refills Senna 8.6 mg 1 tab po Q HS prn constipation #10, no refills - VIR recommendations for discharge follow up: Follow up imaging in 3-6 months. Hypertension 03/30/2023 Assessment & Plan (03/30/2023 4:15 PM FINISH MENDER): Resume home amlodipine tomorrow Anxiety and depression 03/30/2023 Assessment & Plan (03/30/2023 4:16 PM FINISH MENDER): Continue home buspirone and vilazodone. Home Rexulti not on formulary; can resume on discharge or patient has own supply with her if hospitalization longer than anticipated. Abnormal ultrasound of breast 09/28/2019 Breast signs and symptoms 09/28/2019 Immunizations Immunization Administration Dates Next Due Influenza, Quadrivalent, Spl it, Preservative Free, Intramuscular 03/30/2023 Social History Tobacco Use Types Packs/Day Years Used Date Smoking Tobacco: Never Smokeless Tobacco: Never Tobacco Cessation:Counseling Given: Not Answered Alcohol Use Standard Drinks/Week Comments Yes 3 (1 standard drink = 0.6 oz pur e alcohol) 2-3 AUDIT-C Answer Date Recorded Q1: How often do you have a drink containing alc ohol? 2-3 times a week 03/23/2023 Q2: How many drinks containi ng alcohol do you have on a typical day when you are drinking? 3 or 4 03/23/2023 Q3: How often do you have si x or more drinks on one occasion? Less than monthly 03/23/2023 Personal Safety Answer Date Recorded Have you ever been in or are you currently in a harmful physical or emotional relationship or is someone making you feel afraid or unsafe? Denies 03/30/2023 Comments No Sex and Gender Information Value Date Recorded Sex Assigned at Not on file Legal Sex Female 7:19 AM FINISH MENDER Gender Identity Not on file Sexual Orientation Not on file Last Filed Vital Signs Vital Sign Reading Time Taken Comments Blood Pressure 120/79 07/21/2023 3:45 PM CDT Pulse 84 03/31/2023 8:00 AM FINISH MENDER Temperature 36.6 C (97.9 F) 03/31/2023 8:00 AM FINISH MENDER Respiratory Rate 20 03/31/2023 8:00 AM FINISH MENDER Oxygen Saturation 93% 03/31/2023 8:00 AM FINISH MENDER Inhaled Oxygen Concentration - - Weight 80 kg (176 lb 6.4 oz) 09/26/2023 8:27 AM CDT Height 154.9 cm (5' 1 ) 09/26/2023 8:27 AM CDT Body Mass Index 33.33 09/26/2023 8:27 AM CDT Plan of Treatment Not on file Procedures Procedure Name Priority Date/Time Associated Diagnosis Comments CT ABDOMEN W WO CONTRAST Schedule Routine, Read Routine (OP Routine) 03/27/2024 1:13 PM FINISH MENDER Left kidney mass POC ISTAT Routine 03/27/2024 1:13 PM FINISH MENDER SCREENING MAMMOGRAM BILATERAL W JOSHUA Schedule Routine, Read Routine (OP Routine) 09/27/2023 11:04 AM CDT Screening mammogram, encounter for from Last 3 Months or Most Recently Relevant to Health Maintenance Results * CT Abdomen W WO Contrast (03/27/2024 1:13 PM FINISH MENDER) Anatomical Region Laterality Modality Body N/A Computed Tomogra phy 03/27/2024 1:37 PM FINISH MENDER Impressions 03/27/2024 1:37 PM FINISH MENDER 1. Evolving post cryoablation changes in the left kidney upper pole without recurrent disease identified in the abdomen. Electronically signed by: Iker Strickland M.D. Narrative 03/27/2024 1:37 PM FINISH MENDER EXAMINATION: Computed tomography of the abdomen with and without intravenous contrast HISTORY: Renal mass treated with cryoablation TECHNIQUE: Transaxial computed tomographic images of the abdomen were obtained with and without intravenous contrast according to the standard protocol after the uneventful administration of 88 mL Opti-Ray 350 intravenous contrast. COMPARISON: 05/31/2023 FINDINGS: Within the lung bases, there is no pleural effusion pneumothorax or consolidation. Normal heart size without pericardial effusion. Small hiatal hernia. Diffuse hepatic steatosis. No focal liver lesion or biliary duct dilatation. Nondistended gallbladder. Normal-appearing adrenal glands, pancreas, and spleen. Normal stomach and duodenum. Postprocedural changes from cryoablation in the upper poles the left kidney are again seen. There is no internal enhancement to suggest local recurrence. No new renal lesion on either side. No hydronephrosis. The abdominal aorta is normal in caliber. No retroperitoneal or mesenteric lymphadenopathy. No ascites or free intraperitoneal gas. No intestinal obstruction or focal bowel wall thickening in the included portions of the gastrointestinal tract. Bone windows demonstrate no suspicious osseous lesion or fracture. Procedure Note Iker Strickland MD - 03/27/2024 EXAMINATION: Computed tomography of the abdomen with and without intravenous contrast HISTORY: Renal mass treated with cryoablation TECHNIQUE: Transaxial computed tomographic images of the abdomen were obtained with and without intravenous contrast according to the standard protocol after the uneventful administration of 88 mL Opti-Ray 350 intravenous contrast. COMPARISON: 05/31/2023 FINDINGS: Within the lung bases, there is no pleural effusion pneumothorax or consolidation. Normal heart size without pericardial effusion. Small hiatal hernia. Diffuse hepatic steatosis. No focal liver lesion or biliary duct dilatation. Nondistended gallbladder. Normal-appearing adrenal glands, pancreas, and spleen. Normal stomach and duodenum. Postprocedural changes from cryoablation in the upper poles the left kidney are again seen. There is no internal enhancement to suggest local recurrence. No new renal lesion on either side. No hydronephrosis. The abdominal aorta is normal in caliber. No retroperitoneal or mesenteric lymphadenopathy. No ascites or free intraperitoneal gas. No intestinal obstruction or focal bowel wall thickening in the included portions of the gastrointestinal tract. Bone windows demonstrate no suspicious osseous lesion or fracture. IMPRESSION: 1. Evolving post cryoablation changes in the left kidney upper pole without recurrent disease identified in the abdomen. Electronically signed by: Iker Strickland M.D. Clifford Aranda MD IMG CT PROCEDURES Final Result * POC ISTAT (03/27/2024 1:13 PM FINISH MENDER) Creatinine, POC, bld 1.0 0.6 - 1.3 mg/dL POC Device Number [id number] [facility] POC Performer [id number] [facility] Blood 03/27/2024 1:13 PM FINISH MENDER 03/27/2024 1:13 PM FINISH MENDER Romeo Dobbs MD LAB BLOOD ORDERABLES Final R esult [facility] [id number] [facility]. Department [place] [address] * Screening Mammogram Bilateral W Joshua (09/27/2023 11:04 AM CDT) Anatomical Region Laterality Modality Breast Bilateral Mammography 09/27/2023 Impressions 09/28/2023 1:00 PM CDT There is no mammographic evidence of malignancy. A return to screening mammogram in 1 year is recommended. BI-RADS Category 1: Negative Narrative 09/28/2023 1:00 PM CDT EXAM: Bilateral Digital Screening Mammogram With Tomosynthesis - 09/27/2023 HISTORY: Patient is 53 years old and is seen for screening. FILMS COMPARED: The present examination has been compared to prior imaging studies performed at [facility] on 08/06/2020, 08/07/2021 and 09/14/2022. MAMMOGRAM FINDINGS: Bilateral CC tomosynthesis and C-view images, bilateral MLO tomosynthesis and C-view images were obtained. There are scattered fibroglandular densities. There are no suspicious masses, calcifications or other abnormalities. Digital breast tomosynthesis was performed and reviewed as a part of this examination. Procedure Note Jessica Dominguez MD - 09/28/2023 EXAM: Bilateral Digital Screening Mammogram With Tomosynthesis - 09/27/2023 HISTORY: Patient is 53 years old and is seen for screening. FILMS COMPARED: The present examination has been compared to prior imaging studies performed at [facility] on 08/06/2020, 08/07/2021 and 09/14/2022. MAMMOGRAM FINDINGS: Bilateral CC tomosynthesis and C-view images, bilateral MLOtomosynthesis and C-view images were obtained. There are scattered fibroglandular densities. There are no suspicious masses, calcifications or other abnormalities. Digital breast tomosynthesis was performed and reviewed as a part ofthis examination. IMPRESSION: There is no mammographic evidence of malignancy. A return to screening mammogram in 1 year is recommended. BI-RADS Category 1: Negative us Self Screening Mammogram IMG MAMMO PROCEDURES Fi nal Result from Last 3 Months or Most Recently Relevant to Health [place] [address] [place] [address] [facility] [address] [facility] [employer] Advance Directives For more information, please contact: [phone] * Full Code (Latest Code Status on File) Date Activated Date Inactivated Comments 03/30/2023 11:54 AM 03/31/2023 1:50 PM * Full Code Date Activated Date Inactivated Comments 03/30/2023 7:04 AM 03/30/2023 11:54 AM Care Teams Snuff Container Inspector Relationship Specialty Start Date End Date Romeo Dobbs MD [address] [place] [address] PCP - General Internal Medicine 08/24/19
--- OUTSIDE RECORDS SUMMARY | 2024-05-16 07:18 | XMS_ITS ---
Author Organization [facility] Address [address] [place] [address] Care Team Providers Care Pricing Manager Name Role Phone SONU MILIAN [phone] Allergies Allergen (clinical drug ingredient) Drug/Non Drug Allergy documented on EMR Reaction Allergy Type Onset Date Status Keflex Unknown Drug Allergy Active sulfacetamide Sulfacetamide Unknown Drug Allergy Active Results Component Value Reference Range Notes Rapid Strep Reviewed date:05/27/2023 02:51:32 PM Interpretation:Positive Performing Lab: Notes/Report: Positive Rapid Strep positive Control 04/13/2023 Expiration Date 09/11/2024 Lot Number [id number] REASON FOR VISIT sanjana- flu sx Medications Medication SIG (Take, Route, Frequency, Duration) Notes Start Date End Date Status busPIRone HCl 10 MG Oral for 90 Days Active Rexulti 1 MG Oral for 90 Days Active amLODIPine Besylate 5 MG TAKE 1 TABLET B Y MOUTH ONCE DAILY Oral for 90 Days Active methylPREDNISolone 4 MG as directed ON P ACKAGE Orally DAILY for 6 days 05/27/2023 Active Augmentin 875-125 MG 1 tablet take with meals Orally every 12 hrs for 10 days 05/27/2023 Active Bromfed DM 30-2-10 MG/5ML 10ml Orally every 8 hrs for 5 days As needed cough 05/27/2023 Active Viibryd Active Fluconazole 200 MG 1 tablet Orally daily for 1 days As needed if symptoms of yeast infection with antibiotic use 05/27/2023 Active Social History Tobacco Use: Social History Observation Description Date Details (start date - stop date) Never Smoker NA - NA Tobacco Control (Standard) Question Answer Notes Tobacco use: Nonsmoker Vital Signs Height 62 in 05/27/2023 Weight 156 lbs 05/27/2023 Blood pressure systolic 116 mm Hg 05/27/19 24 Blood pressure diastolic 71 mm Hg 024 Heart Rate 111 /min 05/27/2023 Temperature 98.8 degrees Fahrenheit 05/27/19 Respiratory Rate 16 /min 05/27/2023 Oximetry 97 % 05/27/2023 BMI 28.53 kg/m2 05/27/2023 Encounters Encounter Location Date Provider Diagnosis [facility] [address] [place] [address] 05/27/2023 SONU HEADLEYBECK Pharyngitis, unspeci fied etiology J02.9 Assessments Encounter [...] fluid ounces of warm water. Take an vosl-jrs-cjaesms pain medication, such as acetaminophen (Tylenol), ibuprofen (Advil, Motrin), or naproxen (Aleve). Read and follow all instructions on the label. Try an jkks-izc-rluztgb anesthetic throat spray or throat lozenges, which [...] Agrees with treatment plan. Plan Of Treatment Medication Medication Name Sig Start Date Stop Date Notes methylPREDNISolone 4 MG as directed ON P ACKAGE Orally DAILY for 6 days 05/27/2023 Augmentin 875-125 MG 1 tablet take with meals Orally every 12 hrs for 10 days 05/27/2023 Bromfed DM 30-2-10 MG/5ML 10ml Orally ev yelitza 8 hrs for 5 days 05/27/2023 Fluconazole 200 MG 1 tablet Orally daily for 1 days 2023 Treatment Notes Assessment Notes Pharyngitis, unspecified etiology Take your antibiotics as directed. Do not [...] fluid ounces of warm water. Take an xvcw-iks-idfkxzd pain medication, such as acetaminophen (Tylenol), ibuprofen (Advil, Motrin), or naproxen (Aleve). Read and follow all instructions on the label. Try an xxtl-vhg-jyovzsq anesthetic throat spray or throat lozenges, which [...] increase your chances of quitting for good. Other Take medications as directed. Return for recheck in 1 week if your symptoms are not resolving. Return sooner if worsening symptoms or persistent fever. Go to Emergency Room if shortness of breath, chest pain, or fever above 103.5. Next Appt Details Follow Up: 2 - 3 Days,if you r symptoms are not resolving., Reason: Progress Notes * Jessica KINGDOB:1970 (53 yo F)Acc No.[id number]:05/27/2023 Patient: Jessica HANEY Provider: James MILIAN APRN :1970 A ge:53 Y S ex:Female Date:05/27/2023 Address:[address] [place], [place] [id number] Subjective: * Chief Complaints: * G lo- flu sx * HPI: U pper respiratory Sx/Fever: Duration: 2 days. Nose, Throat: A dmits to s ore throat, nasal/sinus congestion, ear pressure mainly in the right. Respiratory Symptoms: A dmits to, productive cough. Constitutional: A dmits to bodyache. Denies fever, chills. Associated Symptoms D enies h eadache, new loss of taste or smell, shortness of breath, difficulty breathing. Recent Travel A dmits traveling by airplane during the dates of 05/24/2023 from [place], [place] Exposure D enies known exposure to someone who has been diagnosed with Covid-19 infection. G eneric: 53 yo [place] [facility] [place] sore throat, nasal/sinus congestion, ear pressure, productive cough, b odyache since yesterday. Admits traveling by airplane during the dates of 05/24/2023 from [place], [place]. 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 No prior tx tried. * ROS: G eneral/Constitutional: Patient denies c hills , fever , night sweats. P atient complaining of b juanita aches. O phthalmologic: Patient denies b lurred vision , discharge , eye pain , red eye. E NT: Comments S HPI for details. R espiratory: Patient denies s hortness of breath , wheezing , hemoptysis. C omments S HPI for details. C ardiovascular: Patient denies c hest pain , palpitations , dyspnea on exertion. G astrointestinal: Patient denies a bdominal pain , vomiting , diarrhea , blood in stool. H ematology: Patient denies b leeding problems , easy bruising. ? G enitourinary: Patient denies d ifficulty urinating , painful urination , blood in the urine. S kin: Patient denies r jaxson , hives. N eurologic: Patient denies b alance difficulty , dizziness, fainting , seizures. * Medical History: * Surgical History: h ysterectomy Appendectomy kidney ablasion * Hospitalization/Major Diagno stic Procedure: D enies Past Hospitalization * Family History: N on-Contributory. None. * Social History: T obacco Use: T obacco Control (Standard) T obacco use: N onsmoker D rugs/Alcohol: D o you drink alcohol?: Socially. * Medications: T akingViibryd amLODIPine Besylate 5 MG Tablet TAKE 1 TABLET BY MOUTH ONCE DAILY Oral Rexulti 1 MG Tablet Oral busPIRone HCl 10 MG Tablet Oral Medication List reviewed and reconciled with the patientTaking Viibryd Taking amLODIPine Besylate 5 MG Tablet TAKE 1 TABLET BY MOUTH ONCE DAILY Oral Taking Rexulti 1 MG Tablet Oral Taking busPIRone HCl 10 MG Tablet Oral Medication List reviewed and reconciled with the patient * Allergies: K eflexSulfacetamideno[Allergies Verified] Objective: * Vitals: H t: 62 in, Wt:156lbs, BP:116/71mm Hg, HR:111/min, Temp:98.8F, RR:16/min, Oxygen sat %:97%, BMI:28.53Index. * Examination: G eneral Examination: GENERAL APPEARANCE: i n no acute distress, well developed, well nourished. EYES: B OTH EYES, conjunctiva clear , pupils, corneas, and eyelids appear normal. EARS: B OTH EARS , auditory canal clear , tympanic membrane intact, clear, tympanic membrane dull. NOSE: , sinuses nontender bilaterally, mucosa inflamed bilaterally, positive nasal congestion, positive clear discharge. ORAL CAVITY: m ucosa moist , palate normal. THROAT: u vula midline , pharynx injected , no exudate, no audible hoarseness or raspy voice, controlling oral secretions, no drooling. NECK/THYROID: , neck supple, full range of motion. LYMPH NODES: n o cervical or facial adenopathy. SKIN: w arm and dry, n o visible rash. HEART: r egular rate and rhythm, no murmur, rub, gallop appreciated. LUNGS: c lear to auscultation bilaterally, good air movement, respirations even and unlabored. speaking in full sentences., Moist audible cough noted. NEUROLOGIC: a lert and oriented , speech clear. PSYCH: c ooperative with exam , mood/affect normal. ? Assessment: * Assessment: 1. P haryngitis, unspecified etiology - J02.9 Plan: * Treatment: Value Reference Range R apid Strep positive * C ontrol 04/13/2023 * E xpiration Date 09/11/2024 * L ot Number [id number] Notes: Take your antibiotics as directed. Do not stop taking them just because you feel better. Youneed to take the full course of antibiotics. Strep throat can spread to others until 24 hours after you begin taking antibiotics. During this time, avoid contact with other people at work, school, or home, especially infants and children. Do not sneeze or cough on others, and wash your hands often. Keep your drinking glass and eating utensilsseparate from those of others. Wash these items well in hot, soapy water. Gargle with warm salt water at least once each hour to help reduce swelling and make your throat feel better. Use 1 teaspoon of salt mixed in 8 fluid ounces of warm water. Take an hmht-dwb-wbwshsc pain medication, such as acetaminophen (Tylenol), ibuprofen (Advil, Motrin), or naproxen (Aleve). Read and follow all instructions on the label. Try an zoga-kxi-azlchvj anesthetic throat spray or throat lozenges, which [...] can increase your chances of quitting for good.??2.?Others? Notes:Take medications as directed. Return for recheck in 1 week if your symptoms are not resolving. Return sooner if worsening symptoms or persistent fever. Go to Emergency Room if shortness of breath, chest pain, or fever above 103.5.?? Clinical Notes:Risks, benefits, and side effects of medications discussed with patient. Agrees with treatment plan.?? * Procedure Codes: 8 7880 RAPID STREP, Modifiers: QW eShop Venturest / CC Processing Fee * Preventive Medicine: Counseling: C are goal follow-up plan: Above Normal BMI Follow-up W eight monitoring MIPS Measure 69Today your BMI (Body Mass Index) was greater than 25. BMI 25 to 30 is considered OVERWEIGHT and BMI greater than 30 is considered OBESE. BMI greater than 40 is considered MORBIDLY OBESE. Screenings: C olonoscopy Last done Colonoscopy M IPS Measure 130 COLORECTAL SCREEN After the age of 50 the risk for colon cancer markedly increases. The following surveillance is recommended.Fecal Occult Blood Test within last 365 DaysColo-Guard DNA Stool Test within 2 yearsFlex Sigmoidoscopy within 4 yearsCT abdomen and pelvis within 4 yearsColonoscopy within last 10 years, V ACCINATIONS: Completed vaccinations include: c ovid vaccinated * Follow Up: 2 - 3 Days,if your symptoms are not resolving. * Billing Information: * Visit Code: 54509 Office Visit, New Pt., Level 3. Modifiers: 25 * Procedure Codes: 67106 RAPID STREP. Modifiers: QW Dry LubeFEE Aircuityelian / CC Processing Fee. * Sign off status: Completed true * Provider: James MILIAN APRN Date: 0 05/27/2023 Generated for Blake sorto/Fanny/eTransmitting on: 0 05/16/2024 08:17 AM EDT History and Physical Notes * HPI (History of Present Illness) Category Sub-Category Detail Notes Category Not es Upper respiratory Sx/Fever Duration: 2 days Constitutional: Admits to bodyache. Denies fever, chills Respiratory Symptoms: Admits to, product owen cough Nose, Throat: Admits to sore throa t, nasal/sinus congestion, ear pressure mainly in the right Associated Symptoms Denies headache, new loss of taste or smell, shortness of breath, difficulty breathing Recent Travel Admits traveling by airplane during the dates of 05/24/2023 from [place], [place]. Exposure Denies known exposur e to someone who has been diagnosed with Covid-19 infection Generic 53 yo female pr [place] [facility] [place] throat, nasal/sinus congestion, ear pressure, productive cough, bodyache since yesterday. Admits traveling by airplane during the dates of 05/24/2023 from [place], [place]. 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 No prior tx tried. Examination Category Sub-Category Detail Notes Category Not es General Examination GENERAL APPEARANCE: in no ac shanice distress, well developed, well nourished EYES: BOTH EYES, conjuncti va clear , pupils, corneas, and eyelids appear normal EARS: BOTH EARS , auditory canal clear , tympanic membrane intact, clear, tympanic membrane dull NOSE: , sinuses nontender bilaterally, mucosa inflamed bilaterally, positive nasal congestion, positive clear discharge THROAT: uvula midline , phar ynx injected , no exudate, no audible hoarseness or raspy voice, controlling oral secretions, no drooling NECK/THYROID: , neck supple, full range of motion HEART: regular rate and rhy thm, no murmur, rub, gallop appreciated LUNGS: clear to auscultatio n bilaterally, good air movement, respirations even and unlabored. speaking in full sentences., Moist audible cough noted NEUROLOGIC: alert and oriented , speech clear SKIN: warm and dry, no vis ible rash LYMPH NODES: no cervical or facia l adenopathy PSYCH: cooperative with exa m , mood/affect normal ORAL CAVITY: mucosa moist , palat e normal
--- OUTSIDE RECORDS SUMMARY | 2024-05-16 07:18 | XMS_ITS ---
Author Organization [facility] [employer] Address [address] [facility] [address] [facility] [address] [place] [address] Care Team Providers Care Shook Splicer Name Role Phone FemiKanika reyes Unavailable [phone] REASON FOR VISIT ADHD Refill Request Medications Medication SIG (Take, Route, Frequency, Duration) Notes Start Date End Date Status Amphetamine-Dextroamphet ER 30 MG 1 capsule in the morning Oral Once a day for 30 days 03/07/2024 Active Social History Sex Assigned At : Social History Observation Description Sex Assigned At Female Encounters Encounter Location Date Provider Diagnosis [facility] [place] [id number] [facility] [address] [facility] [address] [place] [address] 03/05/2024 Kanika Anders Attention-deficit hyperactivity disorder, predominantly hyperactive type F90.1 Assessments Encounter Date Diagnosis (ICD Code) Assessment Notes Treatment Notes Treatment Clinical Notes Section Notes 03/05/2024 Attention-deficit hyperactivity disorder, predominantly hyperactive type (ICD-10 - F90.1) Plan Of Treatment Medication Medication Name Sig Start Date Stop Date Notes Amphetamine-Dextroamphet ER 30 MG 1 capsule in the morning Oral Once a day for 30 days 03/07/2024 Next Appt Details Provider Name:Kanika Anders , 05/21/2024 04:15:00 PM, [address], [facility] [address], [place], [address], Progress Notes * HANNAH KINGDOB:1970 (53 yo F)Acc No.[id number]:03/05/2024 Patient: HANNAH HANEY :1970 A ge:53 Y S ex:Female Address:[address] [place] [address] [place], [address] * Refills Refill Amphetamine-Dextroamphet ER Capsule Extended Release 24 Hour, 30 MG, Oral, 30, 1 capsule in the morning, Once a day, 30 days, Refills=0 Subjective: * Chief Complaints: * A DHD Refill Request * Medical History: * Surgical History: * Hospitalization/Major Diagno stic Procedure: * Medications: Objective: * Vitals: * Physical Examination: Assessment: * Assessment: 1. A ttention-deficit hyperactivity disorder, predominantly hyperactive type - F90.1 Plan: * Treatment: * Procedure Codes: E RX CONTROLLED SUBSTANCE ERX * true * Date: Generated for Blake sorto/Fanny/eTdariosmbang on: 0 05/16/2024 07:18 AM CDT
--- OUTSIDE RECORDS SUMMARY | 2024-05-16 07:18 | XMS_ITS | Clinical Summary ---
Author Organization [facility] Address [address] [place] [address] Care Team Providers Care Strategic Partnership Specialist Name Role Phone Romeo Dobbs MD Primary Care Provider + [phone] Allergies Active Allergy Reactions Criticality Noted Date [...] 1 tablet (40 mg total) by mouth director of valuation before breakfast Active brexpiprazole (Rexulti) 1 mg tabletIndications :Depression Treatment Adjunct Take 1 tablet (1 mg total) by mouth director of valuation before breakfast Active amLODIPine (NORVASC) 5 mg tabletIndications :hypertension Take 1 tablet (5 mg total) by mouth director of valuation before breakfast 3 Active rizatriptan (MAXALT) 10 [...] 1 tablet (5,000 Units total) by mouth director of valuation before breakfast Active acidophilus-pecti n, citrus 100 million cell-10 mg capsuleIndication s:Gut Health Take 1 tablet by mouth director of valuation before breakfast Active cranberry-vitamin C-mannose 250-30-50 mg [...] 03/30/2023 Assessment & Plan (03/31/2023 7:52 AM DISPATCH COORDINATOR): Incidentally diagnosed on MRI during workup for [...] 03/30/2023 Assessment & Plan (03/30/2023 4:15 PM DISPATCH COORDINATOR): Resume home amlodipine tomorrow Anxiety and depression 03/30/2023 Assessment & Plan (03/30/2023 4:16 PM DISPATCH COORDINATOR): Continue home buspirone and vilazodone. Home Rexulti not on formulary; can resume on discharge or patient has own supply with her if hospitalization longer than anticipated. Abnormal ultrasound of breast 09/28/2019 Breast signs and symptoms 09/28/2019 Encounters Date Type Department Care Team Description 03/27/2024 3:20 PM DISPATCH COORDINATOR Office Visit [facility] [address] [facility] [address] [place] [address] Clifford Aranda MD Left kidney mass (Primary Dx) 03/27/2024 1:06 PM DISPATCH COORDINATOR - 03/27/2024 11:59 PM DISPATCH COORDINATOR Hospital Encounter [facility] [address] [place] [address] Clifford Aranda MD Left kidney mass Discharge Disposition: Discharge to home or self care from Last 3 Months Immunizations Immunization Administration Dates Next Due Influenza, Quadrivalent, Spl it, Preservative Free, Intramuscular 03/30/2023 Surgical History Surgery Date Site/Laterality Comments HYSTERECTOMY 02/28/2014 - 02/27/2015 Partial KIDNEY SURGERY 02/29/1972 - 02/27/1973 Reflux APPENDECTOMY 2017 Medical History Medical History Date Comments GERD (gastroesophageal reflux disease) Anxiety Depression Migraines Hypertension 2022 Infection 12/20/22 Family History Medical History Relation Name Comments Lung cancer Father's Brother Colon cancer Maternal Grandfather Non-Hodgkin's Lymphoma Maternal Grandfather Breast cancer Maternal Grandmother Colon cancer Mother's Brother 1 Bladder Cancer Mother's Brother 2 Melanoma Paternal Grandfather Malig Hyperthermia Neg Hx Pseudochol deficiency Neg Hx Relation Name Status Comments Father's Brother Maternal Grandfather Maternal Grandmother Alive Diagnos ed around the age of 80 Mother's Brother 1 Mother's Brother 2 Paternal Grandfather Social History Tobacco Use Types Packs/Day Years [...] on file Legal Sex Female 7:19 AM DISPATCH COORDINATOR Gender Identity Not on file Sexual Orientation Not on file Obstetrics History Last Filed Vital Signs Vital Sign Reading Time Taken Comments Blood Pressure 120/79 07/21/2023 3:45 PM CDT Pulse 84 03/31/2023 8:00 AM DISPATCH COORDINATOR Temperature 36.6 C (97.9 F) 03/31/2023 8:00 AM DISPATCH COORDINATOR Respiratory Rate 20 03/31/2023 8:00 AM DISPATCH COORDINATOR Oxygen Saturation 93% 03/31/2023 8:00 AM DISPATCH COORDINATOR Inhaled Oxygen Concentration - - Weight 80 kg (176 lb 6.4 oz) 09/26/2023 8:27 AM CDT Height 154.9 cm (5' 1 ) 09/26/2023 8:27 AM CDT Body Mass Index 33.33 09/26/2023 8:27 AM CDT Plan of Treatment Health Maintenance Due Date Last Done Comments Colon Cancer Screening-Colonoscopy 1970 Depression Screening 1970 Hepatitis C Screening 1970 Hepatitis B Screening 1988 Regular Well Visit/Exam 18-64 1988 Zoster Vaccine (2 of 2) 12/17/2020 10/22/2020 Covid-19 Vaccine ( season) 2023 01/04/2021, 04/12/2020, 03/15/2020 Influenza Vaccine (#1) 2023 , 11/28/2018, 02/20/2016 Breast Cancer Screening-Mammogram 09/26/2024 09/27/2023, 09/14/2022, 08/07/2021, Additional history exists DTaP/Tdap/Td Vaccine (2 - Td or Tdap) 08/19/2029 08/20/2019 Pneumococcal vaccine <65 Aged Out 10/22/2020 No longer eligible based on patient's age to complete this topic Procedures Procedure Name Priority Date/Time Associated Diagnosis Comments CT ABDOMEN W WO CONTRAST Schedule Routine, Read Routine (OP Routine) 03/27/2024 1:13 PM DISPATCH COORDINATOR Left kidney mass POC ISTAT Routine 03/27/2024 1:13 PM DISPATCH COORDINATOR SCREENING MAMMOGRAM BILATERAL W JOSHUA Schedule Routine, Read Routine (OP Routine) 09/27/2023 11:04 AM CDT Screening mammogram, encounter for from Last 3 Months or Most Recently Relevant to Health Maintenance Results * CT Abdomen W WO Contrast (03/27/2024 1:13 PM DISPATCH COORDINATOR) Anatomical Region Laterality Modality Body N/A Computed Tomogra phy 03/27/2024 1:37 PM DISPATCH COORDINATOR Impressions 03/27/2024 1:37 PM DISPATCH COORDINATOR 1. Evolving post cryoablation changes in the left kidney upper pole without recurrent disease identified in the abdomen. Electronically signed by: Iker Strickland M.D. Narrative 03/27/2024 1:37 PM DISPATCH COORDINATOR EXAMINATION: Computed tomography of the abdomen with [...] by: Iker Strickland M.D. Clifford Aranda MD [facility] PROCEDURES Final Result * POC ISTAT (03/27/2024 1:13 PM DISPATCH COORDINATOR) Creatinine, POC, bld 1.0 0.6 - 1.3 mg/dL POC Device Number [id number] [facility] POC Performer [id number] [facility] Blood 03/27/2024 1:13 PM DISPATCH COORDINATOR 03/27/2024 1:13 PM DISPATCH COORDINATOR us Romeo Dobbs MD LAB BLOOD ORDERABLES Final R esult [facility] [address] [facility] [place] [address] * Screening Mammogram Bilateral W Joshua (09/27/2023 [...] compared to prior imaging studies performed at [facility] on 08/06/2020, 08/07/2021 and 09/14/2022. MAMMOGRAM [...] compared to prior imaging studies performed at [facility] on 08/06/2020, 08/07/2021 and 09/14/2022. MAMMOGRAM [...] Most Recently Relevant to Health [place] [address] [facility] CHO[facility] PL[facility] HMO/PPO Address: [place] [address] [facility] CHOICE PLUS Advance Directives For more information, please contact: [phone] * Full Code (Latest Code Status on File) Date Activated Date Inactivated Comments 03/30/2023 11:54 AM 03/31/2023 1:50 PM * Full Code Date Activated Date Inactivated Comments 03/30/2023 7:04 AM 03/30/2023 11:54 AM Care Teams Strategic Partnership Specialist Relationship Specialty Start Date End Date Romeo Dobbs MD [address] [place] [address] PCP - General Internal Medicine 08/24/19
--- OUTSIDE RECORDS SUMMARY | 2024-05-16 07:19 | XMS_ITS ---
Author Organization [facility] [employer] Address [address] [facility] [address] [facility] [address] [place] [address] Care Team Providers Care Aircraft Maintenance Instructor Name Role Phone FemiKanika reyes Unavailable [phone] REASON FOR VISIT New Refill Request Medications Medication SIG (Take, Route, Frequency, Duration) Notes Start Date End Date Status Amphetamine-Dextroamphet ER 30 MG 1 capsule in the morning Oral Once a day for 30 days 04/16/2024 Active Social History Sex Assigned At : Social History Observation Description Sex Assigned At Female Encounters Encounter Location Date Provider Diagnosis [facility] [place] [id number] [facility] [address] [place] [address] 04/16/2024 Kanika Anders Attention-deficit hyperactivity disorder, predominantly hyperactive type F90.1 Assessments Encounter Date Diagnosis (ICD Code) Assessment Notes Treatment Notes Treatment Clinical Notes Section Notes 04/16/2024 Attention-deficit hyperactivity disorder, predominantly hyperactive type (ICD-10 - F90.1) Plan Of Treatment Medication Medication Name Sig Start Date Stop Date Notes Amphetamine-Dextroamphet ER 30 MG 1 capsule in the morning Oral Once a day for 30 days 04/16/2024 Next Appt Details Provider Name:Kanika Anders , 05/21/2024 04:15:00 PM, [address], [address], [place], [address], Progress Notes * HANNAH KINGDOB:1970 (54 yo F)Acc No.[id number]:04/16/2024 Patient: HANNAH HANEY :1970 A ge:53 Y S ex:Female Address:[address] [place] [address] [place], [address] * Refills Refill Amphetamine-Dextroamphet ER Capsule Extended Release 24 Hour, 30 MG, Oral, 30, 1 capsule in the morning, Once a day, 30 days, Refills=0 * true * Date: Generated for Blake sorto/Fanny/Pradip on: 0 05/16/2024 07:18 AM CDT
[2024-05-16 07:25] LABS: Hemoglobin 12.9 g/dL (12.0-15.0); Mean Corpuscular HGB Conc 32.3 g/dL (32-36); Mean Corpuscular Hemoglobin 27.4 pg (27.0-31.0); Mean Corpuscular Volume 84.9 fL (78.0-102.0); Mean Platelet Volume 9.9 fl (9.2-11.8); Platelet Count Result 253 K/mm3 (150-420); Red Blood Count 4.71 M/mm3 (4.20-5.40); Red Cell Distribution Width 13.3 % (11.6-14.4)
[2024-05-16 07:27] LABS: Add Urine Microscopic? NO; Appearance Urine Clear (Clear); Bilirubin Urine Negative (Negative); Blood Urine Negative (Negative); Color Urine Yellow (Yellow); Glucose Urine UA Negative (Negative); Ketones Urine Negative (Negative); Leukocyte Esterase Ur Negative (Negative); Nitrate Urine Negative (Negative); Protein Urine Negative (Negative); Specific Grav Ur >= 1.030 (1.010-1.020); Urobilinogen Urine 0.2 mg/dL (0.2-1.0)
[2024-05-16 07:44] LABS: Hemoglobin A1C 5.4 % (<5.7)
[2024-05-16 08:10] LABS: Alanine Aminotransferase 40 U/L (14-59); Albumin Level 3.9 g/dL (3.4-5.0); Alkaline Phosphatase 101 U/L (46-116); Anion Gap 8 mmol/L (4-12); Aspartate Amino Transferase 16 U/L (15-37); Bilirubin,Total 0.5 mg/dL (0.00-1.00); Blood Urea Nitrogen 15 mg/dL (7-18); Calcium 9.2 mg/dL (8.5-10.1); Carbon Dioxide 32 mmol/L (21-32); Chloride 105 mmol/L (98-108); Cholesterol 179 mg/dL (0-200); Estimated Glomerular Filt Rate > 60; Glucose 98 mg/dL (70-99); HDL Direct 70 mg/dL (40-60); LDL Cholesterol Calculated 94 mg/dL (<130); Osmolality Calculated 300 mOsm/kg (285-295); Potassium 4.4 mmol/L (3.5-5.1); Sodium 145 mmol/L (136-145); Total Protein 7.1 g/dL (6.4-8.2); Triglycerides 74 mg/dL (0-150)
== END 2024-05-16 07:14 | disposition home or self-care (01) ==
LOC: CHSLAB 07:14
PROVIDERS: PCP Internal Medicine; Visit Provider Internal Medicine
DX: N30.90 Cystitis, unspecified without hematuria (principal); I10 Essential (primary) hypertension; E78.2 Mixed hyperlipidemia; R73.01 Impaired fasting glucose; D41.00 Neoplasm of uncertain behavior of unspecified kidney
CPT/HCPCS: 36415; 80053; 80061; 81003; 83036; 85027

== ENCOUNTER 2024-10-02 16:14 | Outpatient (CLI) | payer OTHER, SELFPAY ==
--- OUTSIDE RECORDS SUMMARY | 2024-10-02 16:20 | XMS_ITS | Clinical Summary ---
Author Organization [facility] Address [address] [place] [address] Care Team Providers Care Needlemaker Name Role Phone Romeo Dobbs MD Primary Care Provider + [phone] Allergies Active Allergy Reactions Criticality Noted Date Comments Cephalexin Hives Medium 10/01/2019 Sulfa (Sulfonamide Antibiotics) Other (See comments) Low 10/01/2019 Causes Low Blood sugar Sulfacetamide Other (See comments) Low 09/26/2023 Medications busPIRone (BUSPAR) 10 mg tabletIndication s:Generalized Anxiety Disorder Take 1 tablet (10 mg total) by mouth 3 (three) times a day Active dextroamphetamin e-amphetamine XR (Adderall XR) 30 mg 24 hr capsuleIndicatio ns:Attention-Def icit Hyperactivity Disorder Take 1 capsule (30 mg total) by mouth every morning Active vilazodone (Viibryd) 40 mg tabletIndication s:major depressive disorder Take 1 tablet (40 mg 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 brexpiprazole (Rexulti) 1 mg tabletIndication s:Depression Treatment Adjunct Take 1 tablet (1 mg 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 amLODIPine (NORVASC) 5 mg tabletIndication s:hypertension Take 1 tablet (5 mg 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 02/17/20 23 Active rizatriptan (MAXALT) 10 mg tabletIndication s:Migraine Take 1 tablet (10 mg total) by mouth once as needed for migraine 11/25/19 23 Active dextroamphetamin e-amphetamine (ADDERALL) 10 mg tabletIndication s:Attention-Defi cit Hyperactivity Disorder Take 1 tablet (10 mg total) by mouth with lunch Active cholecalciferol (VITAMIN D-3) 5,000 unit tabletIndication s:Prevention of Vitamin D Deficiency Take 1 tablet (5,000 Units 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 acidophilus-pect in, citrus 100 million cell-10 mg capsuleIndicatio ns:Gut Health Take 1 tablet by mouth 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 nitrofurantoin monohydrate (MACROBID) 100 mg capsuleIndicatio ns:Postcoital UTI Take 1 tablet by mouth after intercourse 30 capsule 5 06/08/19 24 Active Additional Information Patient not taking.Reported on 07/21/2023 d-mannose powder Take by mouth Active estradioL (VAGIFEM) 10 mcg tabletIndication s:Recurrent UTI INSERT 1 TABLET VAGINALLY TWO NIGHTS A WEEK 18 tablet 4 09/27/19 25 Active estradioL (VAGIFEM) 10 mcg tabletIndication s:Recurrent UTI Place one (1) tablet in the vagina two (2) nights a week 18 tablet 11 08/15/19 24 2024 Discontinued Active Problems Problem Noted Date Diagnosed Date [...] 03/30/2023 Assessment & Plan (03/31/2023 7:52 AM POCKET MAKER): Incidentally diagnosed on MRI during workup for [...] 03/30/2023 Assessment & Plan (03/30/2023 4:15 PM POCKET MAKER): Resume home amlodipine tomorrow Anxiety and depression 03/30/2023 Assessment & Plan (03/30/2023 4:16 PM POCKET MAKER): Continue home buspirone and vilazodone. Home Rexulti [...] on file Legal Sex Female 7:19 AM POCKET MAKER Gender Identity Not on file Sexual Orientation Not on file Obstetrics History Last Filed Vital Signs Vital Sign Reading Time Taken Comments Blood Pressure 120/79 07/21/2023 3:45 PM CDT Pulse 84 03/31/2023 8:00 AM POCKET MAKER Temperature 36.6 C (97.9 F) 03/31/2023 8:00 AM POCKET MAKER Respiratory Rate 20 03/31/2023 8:00 AM POCKET MAKER Oxygen Saturation 93% 03/31/2023 8:00 AM POCKET MAKER Inhaled Oxygen Concentration - - Weight 80 kg (176 lb 6.4 oz) 09/26/2023 8:27 AM CDT Height 154.9 cm (5' 1) 09/26/2023 8:27 AM CDT Body Mass Index 33.33 09/26/2023 8:27 AM CDT Plan of Treatment Health Maintenance Due Date Last Done Comments Colon Cancer Screening-Colonoscopy 1970 Depression Screening 1970 Hepatitis C Screening 1970 Hepatitis B Screening 1988 Regular Well Visit/Exam 18-64 1988 Zoster Vaccine (2 of 2) 12/17/2020 10/22/2020 Covid-19 Vaccine ( - season) 2023 01/04/2021, 04/12/2020, 03/15/2020 Breast Cancer Screening-Mammogram 09/26/2024 09/27/2023, 09/14/2022, 08/07/2021, Additional history exists Influenza Vaccine (#1) 2024 , 11/28/2018, 02/20/2016 DTaP/Tdap/Td Vaccine (2 - Td or Tdap) 08/19/2029 08/20/2019 Pneumococcal vaccine <65 Aged Out 10/22/2020 No longer eligible based on patient's age to complete this topic Procedures Procedure Name Priority Date/Time Associated Diagnosis Comments SCREENING MAMMOGRAM BILATERAL W GRANT Schedule Routine, Read Routine (OP Routine) 09/27/2023 11:04 AM CDT Screening mammogram, encounter for from Last 3 Months or Most Recently Relevant to Health Maintenance Results * Screening Mammogram Bilateral W Grant (09/27/2023 11:04 AM CDT) Anatomical Region Laterality [...] compared to prior imaging studies performed at [facility] on 08/06/2020, 08/07/2021 and 09/14/2022. MAMMOGRAM FINDINGS: [...] compared to prior imaging studies performed at [facility] on 08/06/2020, 08/07/2021 and 09/14/2022. MAMMOGRAM FINDINGS: [...] Most Recently Relevant to Health [place] [address] [facility] Address: [address] [place] [address] [place] [address] [facility] [employer] Address: [address] [place] [id number] Advance Directives For more information, please contact: [phone] * Full Code (Latest Code Status on File) Date Activated Date Inactivated Comments 03/30/2023 11:54 AM 03/31/2023 1:50 PM * Full Code Date Activated Date Inactivated Comments 03/30/2023 7:04 AM 03/30/2023 11:54 AM Care Teams Needlemaker Relationship Specialty Start Date End Date Romeo Dobbs MD [address] [place] [address] PCP - General Internal Medicine 08/24/19
--- OUTSIDE RECORDS SUMMARY | 2024-10-02 16:20 | XMS_ITS | Patient Health Record ---
Author Organization [facility] [address] Address [address] [facility] [address] [place] [address] Care Team Providers Care Health Type Technician Name Role Phone Kanika Anders Unavailable [phone] Allergies Allergen (clinical drug ingredient) Drug/Non Drug Allergy documented on EMR Reaction Allergy Type Onset Date Status Substance with sulfonamide structure and antibacterial mechanism of action (substance) SULFA (SULFONAMIDE ANTIBIOTICS) (uncoded) Unknown Allergy 04/22/2023 Active Keflex Unknown Drug Allergy 04/22/2023 Active Results Component Value Reference Range Notes UDT Reviewed date:08/14/2024 09:13:58 AM Interpretation: Performing Lab: Notes/Report: THC NEG 0 - 50 ng/ml Cocaine NEG 0 - 300 ng/ml Amphetamine POS 0 - 1000 ng/ml Buprenorphine (BUP) NEG 0 - 10 ng/ml Secobarbital (Bar) NEG 0 - 300 ng/ml Oxazepam (BZO) NEG 0 - 300 ng/ml 2-brsfzzoxbx-3,9-kgwwezvr-2,3-diphenylpyrrolidine ([place] P) NEG 0 - 300 ng/ml Methamphetamine (MET) NEG 0 - 1000 ng/ml Methylenedioxymethamphetamine (MDMA) NEG 0 - 500 ng/ml Morphine (MOP 300/[id number]) NEG 0 - 300 ng/ml Methadone (MTD) NEG 0 - 300 ng/ml Phencyclidine (PCP) NEG 0 - 25 ng/ml Nortriptyline (TCA) NEG 0 - 1000 ng/ml Oxycodone NEG 0 - 300 ng/ml x NEG 0 - 300 ng/ml Reason For Referral No Information Medications Medication SIG (Take, Route, Frequency, Duration) Notes Start Date End Date Status Amphetamine-Dextroamphet ER 30 MG 1 capsule in the morning Oral Once a day; Duration: 30 days 09/17/2024 Active Rexulti 1 MG 1 tablet Oral Once a day; Duration: 90 days Active Rizatriptan Benzoate 10 MG Oral 04/22/2023 Active amLODIPine Besylate 5 MG Oral 04/22/2023 Active Viibryd 40 MG 1 tablet with food O ral Once a day; Duration: 90 days Active Vilazodone HCl 40 MG Oral 04/22/2023 Active Estradiol 10 MCG Vaginal 04/22/2023 Ac tive Immunizations Vaccine Route Administration Date Status Comme nts Zoster Unknown 10/22/2020 Administered Tdap Unknown 08/20/2019 Administered Pneumococcal conjugate PCV 13 Unknown 10/22/2020 Admini stered Moderna Covid-19 Vaccine 1st dose Unknown 03/15/2020 Ad ministered Moderna Covid-19 Vaccine 1st dose Unknown 04/12/2020 Ad ministered Moderna Covid-19 Vaccine 1st dose Unknown 01/04/2021 Ad ministered Influenza virus vaccine, quadrivalent (IIV4), split virus, 0.25 mL dosage Unknown 02/20/2016 Administered Influenza virus vaccine, quadrivalent (IIV4), split virus, 0.25 mL dosage Unknown 11/28/2018 Administered Social History Tobacco Use: Social History Observation Description Date Details (start date - stop date) Never Smoker NA - NA Sex Assigned At : Social History Observation Description Sex Assigned At Female Tobacco Control (Standard) Question Answer Notes Tobacco use: Nonsmoker Problems Problem Type SNOMED Code ICD Code Onset Dates Problem Status W/U Status Risk Notes Problem Mild recurrent major depression (50065463) Major depressive disorder, recurrent, mild (F33.0) 04/22/19 24 Active confirmed Problem Generalized anxiety disorder (29154181) Generalized anxiety disorder (F41.1) 04/22/19 Active confirmed Problem Primary insomnia (2528553) Primary insomnia (F51.01) 04/22/19 24 Active confirmed Problem Attention deficit hyperactivity disorder (244751236) Attention-deficit hyperactivity disorder, predominantly hyperactive type (F90.1) 12/14/19 Active confirmed Problem Long-term current use of drug therapy (717256896) Other intermission coordinator (current) drug therapy (Z79.899) 04/22/19 24 Active confirmed Vital Signs Heart Rate 97 /min 08/14/2024 Respiratory Rate 16 /min 08/14/2024 Height-cm 157.48 cm 08/14/2024 Blood pressure diastolic 83 mm Hg 08/14/2024 Weight-kg 78.47 kg 08/14/2024 Height 62.00 in 08/14/2024 Blood pressure systolic 120 mm Hg 08/14/2024 Weight 173.0 lbs 08/14/2024 BMI 31.64 kg/m2 08/14/2024 [facility]counters [facility] [place] [id number] [facility] [address] [place] [address] 10/21/2023 Kanika Theramy Major depressive disorder, recurrent, mild F33.0 ; Generalized anxiety disorder F41.1 ; Attention-deficit hyperactivity disorder, predominantly hyperactive type F90.1 ; Other intermission coordinator (current) drug therapy Z79.899 and Primary insomnia F51.01 [facility] [place] [id number] [address] 02/20/2024 Kanika Anders Generalized anxiety disorder F41.1 ; Major depressive disorder, recurrent, mild F33.0 ; Attention-deficit hyperactivity disorder, predominantly hyperactive type F90.1 ; Other intermission coordinator (current) drug therapy Z79.899 and Primary insomnia F51.01 [facility] [place] [address] [address] 05/21/2024 Kanika Theramy Generalized anxiety disorder F41.1 ; Major depressive disorder, recurrent, mild F33.0 ; Attention-deficit hyperactivity disorder, predominantly hyperactive type F90.1 ; Other intermission coordinator (current) drug therapy Z79.899 ; Primary insomnia F51.01 and Encounter for screening for depression Z13.31 [facility] [place] [address] [address] 08/14/2024 Kanika Theramy Generalized anxiety disorder F41.1 ; Major depressive disorder, recurrent, mild F33.0 ; Attention-deficit hyperactivity disorder, predominantly hyperactive type F90.1 ; Other fpc (current) drug therapy Z79.899 ; Primary insomnia F51.01 ; Encounter for screening for depression Z13.31 and Negative depression screening Z13.31 [facility], [place] [address] [place] [address] [place] [address] 10/05/2023 Kanika Thery [facility], [facility] [address] [place] [address] [place] [address] 11/05/2023 Kanika Thery [facility], [facility] [address] [place] [address] [place] [address] 11/06/2023 Kanika Thery Attention-deficit hyperactivity disorder, predominantly hyperactive type F90.1 [facility], [facility] [address] [place] [address] [place] [address] 12/08/2023 Kanika Thery Attention-deficit hyperactivity disorder, predominantly hyperactive type F90.1 [facility], [facility] [address] [place] [address] [place] [address] 01/12/2024 Kanika Thery Attention-deficit hyperactivity disorder, predominantly hyperactive type F90.1 [facility], [facility] [address] [place] [address] [place] [address] 02/07/2024 Kanika Thery Attention-deficit hyperactivity disorder, predominantly hyperactive type F90.1 [facility], [facility] [address] [place] [address] [place] [address] 03/05/2024 Kanika Thery Attention-deficit hyperactivity disorder, predominantly hyperactive type F90.1 [facility], [facility] [address] [place] [address] [place] [address] 04/16/2024 Kanika Thery Attention-deficit hyperactivity disorder, predominantly hyperactive type F90.1 [facility], [facility] [address] [place] [address] [place] [address] 04/16/2024 Kanika Thery [facility], [facility] [address] [place] [address] [place] [address] 05/17/2024 Kanika Thery [facility], [facility] [address] [place] [address] [place] [address] 06/18/2024 Kanika Thery Attention-deficit hyperactivity disorder, predominantly hyperactive type F90.1 [facility], [facility] [address] [place] [address] [place] [address] 07/19/2024 Kanika Thery Attention-deficit hyperactivity disorder, predominantly hyperactive type F90.1 [facility], [facility] [address] [place] [address] [place] [address] 09/17/2024 Kanika Anders Attention-deficit hyperactivity disorder, predominantly hyperactive type F90.1 Assessments Encounter Date Diagnosis (ICD Code) Assessment Notes Treatment Notes Treatment Clinical Notes Section Notes 10/21/2023 Major depressive disorder, recurrent, mild (ICD-10 - F33.0) Preventing Depression From Coming Back: Care Instructions material was published, Learning About Depression material was published, Learning About Depression Screening material was published, Learning About How to Get Help During a Mental Health Crisis material was published, Depression Treatment: Care Instructions material was published 1. Recurrent major depressive episodes, mild - Rexulti 1 mg daily for depression (apathetic mood with 2 mg dose ) continue Viibryd 40 mg daily 2. Generalized anxiety disorder -xanax 0.25 mg daily as needed - no refill needed patient been taking Buspar 10 mg twice a day- 3. Attention deficit hyperactivity disorder -Adderall ER 30 mg in am and Adderall 10 mg at noon no refill needed today [facility] ADHD stimulates education Discuss with patient risk of misuse, abuse, and addiction before prescribing stimulant medicines. Dairy Bacteriologist patients not to share their prescribed stimulant with anyone else. Educate patients and their families on these serious risks, proper storage of the medicine, and proper disposal of any unused medicine. Educated patient will monitor Throughout treatment, regularly assess and monitor them for signs and symptoms of nonmedical use, addiction, and potential diversion, which may be evidenced by more frequent renewal. requests than warranted by the prescribed dosage. Random [facility] [place] prescription reviewed 4. Primary insomnia -stable 5. Long-term drug therapy 10/21/2023 Generalized anxiety disorder (ICD-10 - F41.1) Learning About Generalized Anxiety Disorder material was published, Generalized Anxiety Disorder: Care Instructions material was published, Learning About Anxiety Disorders material was published 1. Recurrent major depressive episodes, mild - Rexulti 1 mg daily for depression (apathetic mood with 2 mg dose ) continue Viibryd 40 mg daily 2. Generalized anxiety disorder -xanax 0.25 mg daily as needed - no refill needed patient been taking Buspar 10 mg twice a day- 3. Attention deficit hyperactivity disorder -Adderall ER 30 mg in am and Adderall 10 mg at noon no refill needed today [facility] ADHD stimulates education Discuss with patient risk of misuse, abuse, and addiction before prescribing stimulant medicines. Dairy Bacteriologist patients not to share their prescribed stimulant with anyone else. Educate patients and their families on these serious risks, proper storage of the medicine, and proper disposal of any unused medicine. Educated patient will monitor Throughout treatment, regularly assess and monitor them for signs and symptoms of nonmedical use, addiction, and potential diversion, which may be evidenced by more frequent renewal. requests than warranted by the prescribed dosage. Random [facility] [place][note 2] prescription reviewed 4. Primary insomnia -stable 5. Long-term drug therapy 11/06/2023 Attention-defici t hyperactivity disorder, predominantly hyperactive type (ICD-10 - F90.1) 12/08/2023 Attention-defici t hyperactivity disorder, predominantly hyperactive type (ICD-10 - F90.1) 01/12/2024 Attention-defici t hyperactivity disorder, predominantly hyperactive type (ICD-10 - F90.1) 02/07/2024 Attention-defici t hyperactivity disorder, predominantly hyperactive type (ICD-10 - F90.1) 02/20/2024 Generalized anxiety disorder (ICD-10 - F41.1) Learning About Generalized Anxiety Disorder material was published, Generalized Anxiety Disorder: Care Instructions material was published, Learning About Anxiety Disorders material was published 1. Recurrent major depressive episodes, mild - Rexulti 1 mg daily for depression (apathetic mood with 2 mg dose ) continue Viibryd 40 mg daily 2. Generalized anxiety disorder -xanax 0.25 mg daily as needed - no refill needed patient been taking Buspar 10 mg twice a day- no refill needed 3. Attention deficit hyperactivity disorder -Adderall ER 30 mg in am no refill needed today Adderall 10 mg at noon no refill needed today [facility] pharmacy ADHD stimulates education Discuss with patient risk of misuse, abuse, and addiction before prescribing stimulant medicines. Dairy Bacteriologist patients not to share their prescribed stimulant with anyone else. Educate patients and their families on these serious risks, proper storage of the medicine, and proper disposal of any unused medicine. Educated patient will monitor Throughout treatment, regularly assess and monitor them for signs and symptoms of nonmedical use, addiction, and potential diversion, which may be evidenced by more frequent renewal. requests than warranted by the prescribed dosage. Random [facility] [place][note 2] prescription reviewed 4. Primary insomnia -stable 5. Long-term drug therapy 03/05/2024 Attention-defici t hyperactivity disorder, predominantly hyperactive type (ICD-10 - F90.1) 04/16/2024 Attention-defici t hyperactivity disorder, predominantly hyperactive type (ICD-10 - F90.1) 05/21/2024 Generalized anxiety disorder (ICD-10 - F41.1) Learning About Generalized Anxiety Disorder material was published, Generalized Anxiety Disorder: Care Instructions material was published, Learning About Anxiety Disorders material was published 1. major depressive Rexulti 1 mg daily for depression (apathetic mood with 2 mg dose ) continue Viibryd 40 mg daily 2. Generalized anxiety disorder - Buspar 10 mg twice a day- 3. Attention deficit hyperactivity disorder -Adderall ER 30 mg in am no refill needed today [facility] pharmacy ADHD stimulates education Discuss with patient risk of misuse, abuse, and addiction before prescribing stimulant medicines. Dairy Bacteriologist patients not to share their prescribed stimulant with anyone else. Educate patients and their families on these serious risks, proper storage of the medicine, and proper disposal of any unused medicine. Educated patient will monitor Throughout treatment, regularly assess and monitor them for signs and symptoms of nonmedical use, addiction, and potential diversion, which may be evidenced by more frequent renewal. requests than warranted by the prescribed dosage. Random [facility] [place] prescription reviewed 4. Primary insomnia -stable 5. Long-term drug therapy 06/18/2024 Attention-defici t hyperactivity disorder, predominantly hyperactive type (ICD-10 - F90.1) 07/19/2024 Attention-defici t hyperactivity disorder, predominantly hyperactive type (ICD-10 - F90.1) 08/14/2024 Generalized anxiety disorder (ICD-10 - F41.1) Learning About Generalized Anxiety Disorder material was published, Generalized Anxiety Disorder: Care Instructions material was published, Learning About Anxiety Disorders material was published 1. major depressive Rexulti 1 mg daily for depression (apathetic mood with 2 mg dose ) continue Viibryd 40 mg daily 2. Generalized anxiety disorder - Buspar 10 mg a day- no refill needed 3. Attention deficit hyperactivity disorder -Adderall ER 30 mg in am [facility] pharmacy ADHD stimulates education Discuss with patient risk of misuse, abuse, and addiction before prescribing stimulant medicines. Dairy Bacteriologist patients not to share their prescribed stimulant with anyone else. Educate patients and their families on these serious risks, proper storage of the medicine, and proper disposal of any unused medicine. Educated patient will monitor Throughout treatment, regularly assess and monitor them for signs and symptoms of nonmedical use, addiction, and potential diversion, which may be evidenced by more frequent renewal. requests than warranted by the prescribed dosage. Random [facility] [place][note 2] prescription reviewed 4. Primary insomnia -stable 5. Long-term drug therapy 09/17/2024 Attention-defici t hyperactivity disorder, predominantly hyperactive type (ICD-10 - F90.1) 08/14/2024 Major depressive disorder, recurrent, mild (ICD-10 - F33.0) Preventing Depression From Coming Back: Care Instructions material was published, Learning About Depression material was published, Learning About Depression Screening material was published, Learning About How to Get Help During a Mental Health Crisis material was published, Depression Treatment: Care Instructions material was published 1. major depressive Rexulti 1 mg daily for depression (apathetic mood with 2 mg dose ) continue Viibryd 40 mg daily 2. Generalized anxiety disorder - Buspar 10 mg a day- no refill needed 3. Attention deficit hyperactivity disorder -Adderall ER 30 mg in am [facility] pharmacy ADHD stimulates education Discuss with patient risk of misuse, abuse, and addiction before prescribing stimulant medicines. Dairy Bacteriologist patients not to share their prescribed stimulant with anyone else. Educate patients and their families on these serious risks, proper storage of the medicine, and proper disposal of any unused medicine. Educated patient will monitor Throughout treatment, regularly assess and monitor them for signs and symptoms of nonmedical use, addiction, and potential diversion, which may be evidenced by more frequent renewal. requests than warranted by the prescribed dosage. Random [facility] [place][note 2] prescription reviewed 4. Primary insomnia -stable 5. Long-term drug therapy 05/21/2024 Major depressive disorder, recurrent, mild (ICD-10 - F33.0) Preventing Depression From Coming Back: Care Instructions material was published, Learning About Depression material was published, Learning About Depression Screening material was published, Learning About How to Get Help During a Mental Health Crisis material was published, Depression Treatment: Care Instructions material was published 1. major depressive Rexulti 1 mg daily for depression (apathetic mood with 2 mg dose ) continue Viibryd 40 mg daily 2. Generalized anxiety disorder - Buspar 10 mg twice a day- 3. Attention deficit hyperactivity disorder -Adderall ER 30 mg in am no refill needed today [facility] pharmacy ADHD stimulates education Discuss with patient risk of misuse, abuse, and addiction before prescribing stimulant medicines. Dairy Bacteriologist patients not to share their prescribed stimulant with anyone else. Educate patients and their families on these serious risks, proper storage of the medicine, and proper disposal of any unused medicine. Educated patient will monitor Throughout treatment, regularly assess and monitor them for signs and symptoms of nonmedical use, addiction, and potential diversion, which may be evidenced by more frequent renewal. requests than warranted by the prescribed dosage. Random [facility] [place][note 2] prescription reviewed 4. Primary insomnia -stable 5. Long-term drug therapy 02/20/2024 Attention-defici t hyperactivity disorder, predominantly hyperactive type (ICD-10 - F90.1) Learning About Attention Deficit Hyperactivity Disorder (ADHD) in Adults material was published 1. Recurrent major depressive episodes, mild - Rexulti 1 mg daily for depression (apathetic mood with 2 mg dose ) continue Viibryd 40 mg daily 2. Generalized anxiety disorder -xanax 0.25 mg daily as needed - no refill needed patient been taking Buspar 10 mg twice a day- no refill needed 3. Attention deficit hyperactivity disorder -Adderall ER 30 mg in am no refill needed today Adderall 10 mg at noon no refill needed today [facility] pharmacy ADHD stimulates education Discuss with patient risk of misuse, abuse, and addiction before prescribing stimulant medicines. Dairy Bacteriologist patients not to share their prescribed stimulant with anyone else. Educate patients and their families on these serious risks, proper storage of the medicine, and proper disposal of any unused medicine. Educated patient will monitor Throughout treatment, regularly assess and monitor them for signs and symptoms of nonmedical use, addiction, and potential diversion, which may be evidenced by more frequent renewal. requests than warranted by the prescribed dosage. Random [facility] [place][note 2] prescription reviewed 4. Primary insomnia -stable 5. Long-term drug therapy 10/21/2023 Attention-defici t hyperactivity disorder, predominantly hyperactive type (ICD-10 - F90.1) Learning About Attention Deficit Hyperactivity Disorder (ADHD) in Adults material was published 1. Recurrent major depressive episodes, mild - Rexulti 1 mg daily for depression (apathetic mood with 2 mg dose ) continue Viibryd 40 mg daily 2. Generalized anxiety disorder -xanax 0.25 mg daily as needed - no refill needed patient been taking Buspar 10 mg twice a day- 3. Attention deficit hyperactivity disorder -Adderall ER 30 mg in am and Adderall 10 mg at noon no refill needed today [facility] pharmacy ADHD stimulates education Discuss with patient risk of misuse, abuse, and addiction before prescribing stimulant medicines. Dairy Bacteriologist patients not to share their prescribed stimulant with anyone else. Educate patients and their families on these serious risks, proper storage of the medicine, and proper disposal of any unused medicine. Educated patient will monitor Throughout treatment, regularly assess and monitor them for signs and symptoms of nonmedical use, addiction, and potential diversion, which may be evidenced by more frequent renewal. requests than warranted by the prescribed dosage. Random [facility] [place][note 2] prescription reviewed 4. Primary insomnia -stable 5. Long-term drug therapy 02/20/2024 Major depressive disorder, recurrent, mild (ICD-10 - F33.0) Preventing Depression From Coming Back: Care Instructions material was published, Learning About Depression material was published, Learning About Depression Screening material was published, Learning About How to Get Help During a Mental Health Crisis material was published, Depression Treatment: Care Instructions material was published 1. Recurrent major depressive episodes, mild - Rexulti 1 mg daily for depression (apathetic mood with 2 mg dose ) continue Viibryd 40 mg daily 2. Generalized anxiety disorder -xanax 0.25 mg daily as needed - no refill needed patient been taking Buspar 10 mg twice a day- no refill needed 3. Attention deficit hyperactivity disorder -Adderall ER 30 mg in am no refill needed today Adderall 10 mg at noon no refill needed today [facility] pharmacy ADHD stimulates education Discuss with patient risk of misuse, abuse, and addiction before prescribing stimulant medicines. Dairy Bacteriologist patients not to share their prescribed stimulant with anyone else. Educate patients and their families on these serious risks, proper storage of the medicine, and proper disposal of any unused medicine. Educated patient will monitor Throughout treatment, regularly assess and monitor them for signs and symptoms of nonmedical use, addiction, and potential diversion, which may be evidenced by more frequent renewal. requests than warranted by the prescribed dosage. [facility] prescription reviewed 4. Primary insomnia -stable 5. Long-term drug therapy 10/21/2023 Other fpc (current) drug therapy (ICD-10 - Z79.899) Medication Refill: Care Instructions material was published 1. Recurrent major depressive episodes, mild - Rexulti 1 mg daily for depression (apathetic mood with 2 mg dose ) continue Viibryd 40 mg daily 2. Generalized anxiety disorder -xanax 0.25 mg daily as needed - no refill needed patient been taking Buspar 10 mg twice a day- 3. Attention deficit hyperactivity disorder -Adderall ER 30 mg in am and Adderall 10 mg at noon no refill needed today [facility] pharmacy ADHD stimulates education Discuss with patient risk of misuse, abuse, and addiction before prescribing stimulant medicines. Dairy Bacteriologist patients not to share their prescribed stimulant with anyone else. Educate patients and their families on these serious risks, proper storage of the medicine, and proper disposal of any unused medicine. Educated patient will monitor Throughout treatment, regularly assess and monitor them for signs and symptoms of nonmedical use, addiction, and potential diversion, which may be evidenced by more frequent renewal. requests than warranted by the prescribed dosage. [facility] [place][note 2] prescription reviewed 4. Primary insomnia -stable 5. Long-term drug therapy 02/20/2024 Other intermission coordinator (current) drug therapy (ICD-10 - Z79.899) Medication Refill: Care Instructions material was published 1. Recurrent major depressive episodes, mild - Rexulti 1 mg daily for depression (apathetic mood with 2 mg dose ) continue Viibryd 40 mg daily 2. Generalized anxiety disorder -xanax 0.25 mg daily as needed - no refill needed patient been taking Buspar 10 mg twice a day- no refill needed 3. Attention deficit hyperactivity disorder -Adderall ER 30 mg in am no refill needed today Adderall 10 mg at noon no refill needed today [facility] pharmacy ADHD stimulates education Discuss with patient risk of misuse, abuse, and addiction before prescribing stimulant medicines. Dairy Bacteriologist patients not to share their prescribed stimulant with anyone else. Educate patients and their families on these serious risks, proper storage of the medicine, and proper disposal of any unused medicine. Educated patient will monitor Throughout treatment, regularly assess and monitor them for signs and symptoms of nonmedical use, addiction, and potential diversion, which may be evidenced by more frequent renewal. requests than warranted by the prescribed dosage. Random [facility] [place][note 2] prescription reviewed 4. Primary insomnia -stable 5. Long-term drug therapy 05/21/2024 Attention-defici t hyperactivity disorder, predominantly hyperactive type (ICD-10 - F90.1) Learning About Attention Deficit Hyperactivity Disorder (ADHD) in Adults material was published 1. major depressive Rexulti 1 mg daily for depression (apathetic mood with 2 mg dose ) continue Viibryd 40 mg daily 2. Generalized anxiety disorder - Buspar 10 mg twice a day- 3. Attention deficit hyperactivity disorder -Adderall ER 30 mg in am no refill needed today [facility] ADHD stimulates education Discuss with patient risk of misuse, abuse, and addiction before prescribing stimulant medicines. Dairy Bacteriologist patients not to share their prescribed stimulant with anyone else. Educate patients and their families on these serious risks, proper storage of the medicine, and proper disposal of any unused medicine. Educated patient will monitor Throughout treatment, regularly assess and monitor them for signs and symptoms of nonmedical use, addiction, and potential diversion, which may be evidenced by more frequent renewal. requests than warranted by the prescribed dosage. [facility] [place][note 2] prescription reviewed 4. Primary insomnia -stable 5. Long-term drug therapy 08/14/2024 Attention-defici t hyperactivity disorder, predominantly hyperactive type (ICD-10 - F90.1) Learning About Attention Deficit Hyperactivity Disorder (ADHD) in Adults material was published 1. major depressive Rexulti 1 mg daily for depression (apathetic mood with 2 mg dose ) continue Viibryd 40 mg daily 2. Generalized anxiety disorder - Buspar 10 mg a day- no refill needed 3. Attention deficit hyperactivity disorder -Adderall ER 30 mg in am [facility] ADHD stimulates education Discuss with patient risk of misuse, abuse, and addiction before prescribing stimulant medicines. Dairy Bacteriologist patients not to share their prescribed stimulant with anyone else. Educate patients and their families on these serious risks, proper storage of the medicine, and proper disposal of any unused medicine. Educated patient will monitor Throughout treatment, regularly assess and monitor them for signs and symptoms of nonmedical use, addiction, and potential diversion, which may be evidenced by more frequent renewal. requests than warranted by the prescribed dosage. Random [facility] [place][note 2] prescription reviewed 4. Primary insomnia -stable 5. Long-term drug therapy 08/14/2024 Other fpc (current) drug therapy (ICD-10 - Z79.899) Medication Refill: Care Instructions material was published 1. major depressive Rexulti 1 mg daily for depression (apathetic mood with 2 mg dose ) continue Viibryd 40 mg daily 2. Generalized anxiety disorder - Buspar 10 mg a day- no refill needed 3. Attention deficit hyperactivity disorder -Adderall ER 30 mg in am [facility] ADHD stimulates education Discuss with patient risk of misuse, abuse, and addiction before prescribing stimulant medicines. Dairy Bacteriologist patients not to share their prescribed stimulant with anyone else. Educate patients and their families on these serious risks, proper storage of the medicine, and proper disposal of any unused medicine. Educated patient will monitor Throughout treatment, regularly assess and monitor them for signs and symptoms of nonmedical use, addiction, and potential diversion, which may be evidenced by more frequent renewal. requests than warranted by the prescribed dosage. [facility] [place][note 2] prescription reviewed 4. Primary insomnia -stable 5. Long-term drug therapy 05/21/2024 Other fpc (current) drug therapy (ICD-10 - Z79.899) Medication Refill: Care Instructions material was published 1. major depressive Rexulti 1 mg daily for depression (apathetic mood with 2 mg dose ) continue Viibryd 40 mg daily 2. Generalized anxiety disorder - Buspar 10 mg twice a day- 3. Attention deficit hyperactivity disorder -Adderall ER 30 mg in am no refill needed today [facility] ADHD stimulates education Discuss with patient risk of misuse, abuse, and addiction before prescribing stimulant medicines. Dairy Bacteriologist patients not to share their prescribed stimulant with anyone else. Educate patients and their families on these serious risks, proper storage of the medicine, and proper disposal of any unused medicine. Educated patient will monitor Throughout treatment, regularly assess and monitor them for signs and symptoms of nonmedical use, addiction, and potential diversion, which may be evidenced by more frequent renewal. requests than warranted by the prescribed dosage. [facility] [place][note 2] prescription reviewed 4. Primary insomnia -stable 5. Long-term drug therapy 02/20/2024 Primary insomnia (ICD-10 - F51.01) Insomnia: Care Instructions material was published, Learning About Sleeping Well material was published 1. Recurrent major depressive episodes, mild - Rexulti 1 mg daily for depression (apathetic mood with 2 mg dose ) continue Viibryd 40 mg daily 2. Generalized anxiety disorder -xanax 0.25 mg daily as needed - no refill needed patient been taking Buspar 10 mg twice a day- no refill needed 3. Attention deficit hyperactivity disorder -Adderall ER 30 mg in am no refill needed today Adderall 10 mg at noon no refill needed today [facility] ADHD stimulates education Discuss with patient risk of misuse, abuse, and addiction before prescribing stimulant medicines. Dairy Bacteriologist patients not to share their prescribed stimulant with anyone else. Educate patients and their families on these serious risks, proper storage of the medicine, and proper disposal of any unused medicine. Educated patient will monitor Throughout treatment, regularly assess and monitor them for signs and symptoms of nonmedical use, addiction, and potential diversion, which may be evidenced by more frequent renewal. requests than warranted by the prescribed dosage. Random [facility] [place][note 2] prescription reviewed 4. Primary insomnia -stable 5. Long-term drug therapy 10/21/2023 Primary insomnia (ICD-10 - F51.01) Insomnia: Care Instructions material was published, Learning About Sleeping Well material was published 1. Recurrent major depressive episodes, mild - Rexulti 1 mg daily for depression (apathetic mood with 2 mg dose ) continue Viibryd 40 mg daily 2. Generalized anxiety disorder -xanax 0.25 mg daily as needed - no refill needed patient been taking Buspar 10 mg twice a day- 3. Attention deficit hyperactivity disorder -Adderall ER 30 mg in am and Adderall 10 mg at noon no refill needed [facility] stimulates education Discuss with patient risk of misuse, abuse, and addiction before prescribing stimulant medicines. Dairy Bacteriologist patients not to share their prescribed stimulant with anyone else. Educate patients and their families on these serious risks, proper storage of the medicine, and proper disposal of any unused medicine. Educated patient will monitor Throughout treatment, regularly assess and monitor them for signs and symptoms of nonmedical use, addiction, and potential diversion, which may be evidenced by more frequent renewal. requests than warranted by the prescribed dosage. Random [facility] [place][note 2] prescription reviewed 4. Primary insomnia -stable 5. Long-term drug therapy 05/21/2024 Primary insomnia (ICD-10 - F51.01) Insomnia: Care Instructions material was published, Learning About Sleeping Well material was published 1. major depressive Rexulti 1 mg daily for depression (apathetic mood with 2 mg dose ) continue Viibryd 40 mg daily 2. Generalized anxiety disorder - Buspar 10 mg twice a day- 3. Attention deficit hyperactivity disorder -Adderall ER 30 mg in am no [facility]ill [facility] education Discuss with patient risk of misuse, abuse, and addiction before prescribing stimulant medicines. Dairy Bacteriologist patients not to share their prescribed stimulant with anyone else. Educate patients and their families on these serious risks, proper storage of the medicine, and proper disposal of any unused medicine. Educated patient will monitor Throughout treatment, regularly assess and monitor them for signs and symptoms of nonmedical use, addiction, and potential diversion, which may be evidenced by more frequent renewal. requests than warranted by the prescribed dosage. [facility] prescription reviewed 4. Primary insomnia -stable 5. Long-term drug therapy 08/14/2024 Primary insomnia (ICD-10 - F51.01) Insomnia: Care Instructions material was published, Learning About Sleeping Well material was published 1. major depressive Rexulti 1 mg daily for depression (apathetic mood with 2 mg dose ) continue Viibryd 40 mg daily 2. Generalized anxiety disorder - Buspar 10 mg a day- no refill needed 3. Attention deficit hyperactivity disorder -Adderall ER 30 mg in am [facility] ADHD stimulates education Discuss with patient risk of misuse, abuse, and addiction before prescribing stimulant medicines. Dairy Bacteriologist patients not to share their prescribed stimulant with anyone else. Educate patients and their families on these serious risks, proper storage of the medicine, and proper disposal of any unused medicine. Educated patient will monitor Throughout treatment, regularly assess and monitor them for signs and symptoms of nonmedical use, addiction, and potential diversion, which may be evidenced by more frequent renewal. requests than warranted by the prescribed dosage. [facility] prescription reviewed 4. Primary insomnia -stable 5. Long-term drug therapy 05/21/2024 Encounter for screening for depression (ICD-10 - Z13.31) 1. major depressive Rexulti 1 mg daily for depression (apathetic mood with 2 mg dose ) continue Viibryd 40 mg daily 2. Generalized anxiety disorder - Buspar 10 mg twice a day- 3. Attention deficit hyperactivity disorder -Adderall ER 30 mg in am no refill needed today [facility] pharmacy ADHD stimulates education Discuss with patient risk of misuse, abuse, and addiction before prescribing stimulant medicines. Dairy Bacteriologist patients not to share their prescribed stimulant with anyone else. Educate patients and their families on these serious risks, proper storage of the medicine, and proper disposal of any unused medicine. Educated patient will monitor Throughout treatment, regularly assess and monitor them for signs and symptoms of nonmedical use, addiction, and potential diversion, which may be evidenced by more frequent renewal. requests than warranted by the prescribed dosage. [facility] prescription reviewed 4. Primary insomnia -stable 5. Long-term drug therapy 08/14/2024 Encounter for screening for depression (ICD-10 - Z13.31) 1. major depressive Rexulti 1 mg daily for depression (apathetic mood with 2 mg dose ) continue Viibryd 40 mg daily 2. Generalized anxiety disorder - Buspar 10 mg a day- no refill needed 3. Attention deficit hyperactivity disorder -Adderall ER 30 mg in [facility] pharmacy ADHD stimulates education Discuss with patient risk of misuse, abuse, and addiction before prescribing stimulant medicines. Dairy Bacteriologist patients not to share their prescribed stimulant with anyone else. Educate patients and their families on these serious risks, proper storage of the medicine, and proper disposal of any unused medicine. Educated patient will monitor Throughout treatment, regularly assess and monitor them for signs and symptoms of nonmedical use, addiction, and potential diversion, which may be evidenced by more frequent renewal. requests than warranted by the prescribed dosage. [facility] [place][note 2] prescription reviewed 4. Primary insomnia -stable 5. Long-term drug therapy 08/14/2024 Negative depression screening (ICD-10 - Z13.31) 1. major depressive Rexulti 1 mg daily for depression (apathetic mood with 2 mg dose ) continue Viibryd 40 mg daily 2. Generalized anxiety disorder - Buspar 10 mg a day- no refill needed 3. Attention deficit hyperactivity disorder -Adderall ER 30 mg in [facility] pharmacy ADHD stimulates education Discuss with patient risk of misuse, abuse, and addiction before prescribing stimulant medicines. Dairy Bacteriologist patients not to share their prescribed stimulant with anyone else. Educate patients and their families on these serious risks, proper storage of the medicine, and proper disposal of any unused medicine. Educated patient will monitor Throughout treatment, regularly assess and monitor them for signs and symptoms of nonmedical use, addiction, and potential diversion, which may be evidenced by more frequent renewal. requests than warranted by the prescribed dosage. [facility] [place][note 2] prescription reviewed 4. Primary insomnia -stable 5. Long-term drug therapy 10/21/2023 Other Vilazodone Oral Tablet (VILAZODONE - ORAL) material was published, Buspirone Oral Tablet (BUSPIRONE - ORAL) material was published 1. Recurrent major depressive episodes, mild - Rexulti 1 mg daily for depression (apathetic mood with 2 mg dose ) continue Viibryd 40 mg daily 2. Generalized anxiety disorder -xanax 0.25 mg daily as needed - no refill needed patient been taking Buspar 10 mg twice a day- 3. Attention deficit hyperactivity disorder -Adderall ER 30 mg in am and Adderall 10 mg at noon no refill needed [facility] ADHD stimulates education Discuss with patient risk of misuse, abuse, and addiction before prescribing stimulant medicines. Dairy Bacteriologist patients not to share their prescribed stimulant with anyone else. Educate patients and their families on these serious risks, proper storage of the medicine, and proper disposal of any unused medicine. Educated patient will monitor Throughout treatment, regularly assess and monitor them for signs and symptoms of nonmedical use, addiction, and potential diversion, which may be evidenced by more frequent renewal. requests than warranted by the prescribed dosage. Random [facility] [place] prescription reviewed 4. Primary insomnia -stable 5. Long-term drug therapy Plan Of Treatment Next Appt Details Provider Name:Kanika Anders , 11/13/2024 04:15:00 PM, [address], [place], [address], Insurance Providers Payer Name Payer Address Payer Phone Subscriber Number Group Number Insured Name Patient Relationship to Insured Coverage Start Date [facility]age End Date [facility] [address] [address] [place] [address] [id number] RAFAL KING Spouse - patient is the spouse of the insured Medical (General) History Medical History History ICD Code Problems: Attention deficit hyperactivit y disorder Generalized anxiety disorder Long-term drug therapy Migraine Primary insomnia Recurrent major depressive episodes, mil d Recurrent major depressive episodes, mod erate , Surgical History Surgery Date(Month/Year) Endometrial ablation (90883) 02/28/2009 Hysterectomy (36854) 02/28/2014 Appendectomy (21826) 02/28/2018
--- OUTSIDE RECORDS SUMMARY | 2024-10-02 16:20 | XMS_ITS | Referral Summary ---
Author Organization [facility] Address [address] [place] [address] Care Team Providers Care Arc Trimmer Name Role Phone Romeo Dobbs MD Primary Care Provider + [phone] Allergies Active Allergy Reactions Criticality Noted Date [...] 1 tablet (40 mg total) by mouth per diem interpreter before breakfast Active brexpiprazole (Rexulti) 1 mg tabletIndication s:Depression Treatment Adjunct Take 1 tablet (1 mg total) by mouth per diem interpreter before breakfast Active amLODIPine (NORVASC) 5 mg tabletIndication s:hypertension Take 1 tablet (5 mg total) by mouth per diem interpreter before breakfast 02/17/20 23 Active rizatriptan (MAXALT) [...] 1 tablet (5,000 Units total) by mouth per diem interpreter before breakfast Active acidophilus-pect in, citrus 100 million cell-10 mg capsuleIndicatio ns:Gut Health Take 1 tablet by mouth per diem interpreter before breakfast Active nitrofurantoin monohydrate (MACROBID) 100 [...] 03/30/2023 Assessment & Plan (03/31/2023 7:52 AM GLASS PRODUCTS INSPECTOR): Incidentally diagnosed on MRI during workup for [...] 03/30/2023 Assessment & Plan (03/30/2023 4:15 PM GLASS PRODUCTS INSPECTOR): Resume home amlodipine tomorrow Anxiety and depression 03/30/2023 Assessment & Plan (03/30/2023 4:16 PM GLASS PRODUCTS INSPECTOR): Continue home buspirone and vilazodone. Home Rexulti [...] on file Legal Sex Female 7:19 AM GLASS PRODUCTS INSPECTOR Gender Identity Not on file Sexual Orientation Not on file Last Filed Vital Signs Vital Sign Reading Time Taken Comments Blood Pressure 120/79 07/21/2023 3:45 PM CDT Pulse 84 03/31/2023 8:00 AM GLASS PRODUCTS INSPECTOR Temperature 36.6 C (97.9 F) 03/31/2023 8:00 AM GLASS PRODUCTS INSPECTOR Respiratory Rate 20 03/31/2023 8:00 AM GLASS PRODUCTS INSPECTOR Oxygen Saturation 93% 03/31/2023 8:00 AM GLASS PRODUCTS INSPECTOR Inhaled Oxygen Concentration - - Weight 80 [...] compared to prior imaging studies performed at [facility] on 08/06/2020, 08/07/2021 and 09/14/2022. MAMMOGRAM FINDINGS: [...] compared to prior imaging studies performed at [facility] on 08/06/2020, 08/07/2021 and 09/14/2022. MAMMOGRAM FINDINGS: [...] to Health [place] [address] [place] [address] [facility] [place] [address] [place] [address] [facility] [place] [address] Advance Directives For more information, please contact: [phone] * Full Code (Latest Code Status on File) Date Activated Date Inactivated Comments 03/30/2023 11:54 AM 03/31/2023 1:50 PM * Full Code Date Activated Date Inactivated Comments 03/30/2023 7:04 AM 03/30/2023 11:54 AM Care Teams Arc Trimmer Relationship Specialty Start Date End Date Romeo Dobbs MD [address] [place] [address] PCP - General Internal Medicine 08/24/19
--- OUTSIDE RECORDS SUMMARY | 2024-10-02 16:20 | XMS_ITS | Patient Health Record ---
Author Organization [facility] Address [address] [place] [address] Support Name Relationship Address Phone Jessica Lopez Guarantor Unknown [phone] Allergies Allergen (clinical drug ingredient) Drug/Non Drug Allergy documented on EMR Reaction Allergy Type Onset Date Status Keflex Unknown Drug Allergy Active sulfacetamide Sulfacetamide Unknown Drug Allergy Active Reason For Referral No Information Medications Medication SIG (Take, Route, Frequency, Duration) Notes Start Date End Date Status busPIRone HCl 10 MG Oral; Duration: 90 Days Active Bromfed DM 30-2-10 MG/5ML 10ml Orally every 8 hrs; Duration: 5 days As needed cough 05/27/2023 Active Rexulti 1 MG Oral; Duration: 90 Days Active amLODIPine Besylate 5 MG TAKE 1 TABLET B Y MOUTH ONCE DAILY Oral; Duration: 90 Days Active methylPREDNISolone 4 MG as directed ON P ACKAGE Orally DAILY; Duration: 6 days 05/27/2023 Active Augmentin 875-125 MG 1 tablet take with meals Orally every 12 hrs; Duration: 10 days 05/27/2023 Active Viibryd Active Fluconazole 200 MG 1 tablet Orally daily; Duration: 1 days As needed if symptoms of yeast infection with antibiotic use 05/27/2023 Active Social History Tobacco Use: Social History Observation Description Date Details (start date - stop date) Never Smoker NA - NA Tobacco Control (Standard) Question Answer Notes Tobacco use: Nonsmoker Plan Of Treatment No Information Insurance Providers Payer Name Payer Address Payer Phone Subscriber Number Group Number Insured Name Patient Relationship to Insured Coverage Start Date Coverage End Date [facility] [address] [address] [place] [address] [phone] [id number] Jessica Lopez Self - patient is the insured Medical (General) History Medical History History ICD Code HYPERTENSION Depression/Anxiety covid vaccinated Surgical History Surgery Date(Month/Year) hysterectomy Appendectomy kidney ablasion
[2024-10-02 17:56] LABS: Hematocrit 38.3 % (35.0-49.0); Hemoglobin 12.9 g/dL (12.0-15.0); Immature Granulocyte Percent A 0.4 % (0.0-0.0); Lymphocytes Absolute Auto 1.28 K/mm3 (1.10-4.50); Mean Corpuscular HGB Conc 33.7 g/dL (32-36); Mean Corpuscular Hemoglobin 28.2 pg (27.0-31.0); Mean Corpuscular Volume 83.8 fL (78.0-102.0); Nucleated Red Blood Cells Absolute Auto 0.00 K/mm3 (0.00-0.00); Nucleated Red Blood Cells Perc 0.0 % (0-0.0); Platelet Count Result 268 K/mm3 (150-420); Red Blood Count 4.57 M/mm3 (4.20-5.40); White Blood Count 4.5 K/mm3 (4.8-10.8)
[2024-10-02 18:12] LABS: Alanine Aminotransferase 30 U/L (6-35); Albumin Level 4.4 g/dL (3.5-5.1); Alkaline Phosphatase 98 U/L (38-126); Anion Gap 6 mmol/L (4-12); Aspartate Amino Transferase 36 U/L (14-36); Bilirubin,Total 0.4 mg/dL (0.2-1.3); Blood Urea Nitrogen 17 mg/dL (7-17); CRP 0.7 mg/dL (<1.0); Calcium 10.1 mg/dL (8.4-10.2); Carbon Dioxide 26 mmol/L (22-30); Chloride 103 mmol/L (98-107); Creatine Kinase 175 U/L (30-135); Estimated Glomerular Filt Rate > 60; Glucose 102 mg/dL (65-110); Iron 82 ug/dL (37-170); Magnesium 1.9 mg/dL (1.6-2.3); Osmolality Calculated 281 mOsm/kg (285-295); Potassium 4.2 mmol/L (3.4-5.0); Sodium 135 mmol/L (137-145); Total Protein 7.1 g/dL (6.3-8.2)
[2024-10-02 18:26] LABS: Free T3 3.82 pg/mL (2.18-3.98)
[2024-10-02 18:27] LABS: Free T4 Free Thyroxine 1.27 ng/dL (0.78-2.19)
[2024-10-02 18:41] LABS: Thyroid Stimulating Hormone 1.160 uIU/mL (0.465-4.680)
[2024-10-03 06:35] LABS: Ferritin 41.10 ng/mL (11.1-264)
== END 2024-10-02 16:15 | disposition home or self-care (01) ==
LOC: CHSLAB 16:17
PROVIDERS: PCP Internal Medicine; Visit Provider Internal Medicine
DX: M79.10 Myalgia, unspecified site (principal); R00.2 Palpitations
CPT/HCPCS: 36415; 80053; 82085; 82550; 82728; 83540; 83735; 84439; 84443; 84481; 85025; 85652; 86140

== ENCOUNTER 2024-11-06 15:39 | Outpatient (CLI) | payer OTHER, SELFPAY ==
--- OUTSIDE RECORDS SUMMARY | 2024-11-06 16:56 | XMS_ITS | Encounter Summary ---
Author Organization [facility] Address [address] [place] [address] Care Team Providers Care Business Continuity Consultant Name Role Phone Unavailable Primary Care Provider Unavailabl e Encounter Details Date Type Department Care Team (Late st Contact Info) Description 10/30/2024 Results Follow-Up [facility] [address] [place] [id number] Miranda Willard, RN Social History Tobacco Use Types Packs/Day Years Used Date Smoking Tobacco: Never Assessed Comments Unknown Sex and Gender Information Value Date Recorded Sex Assigned at Not on file Legal Sex Female 4:15 AM CDT Gender Identity Not on file Sexual Orientation Not on file documented as of this encounter Plan of Treatment Not on file documented as of this encounter Visit Diagnoses Not on filedocumented in this encounter
--- OUTSIDE RECORDS SUMMARY | 2024-11-06 16:56 | XMS_ITS | Patient Health Record ---
Author Organization [facility] Address [address] [place] [address] Support Name Relationship Address Phone Jessica Lopez Guarantor Unknown [phone] Allergies Allergen (clinical drug ingredient) Drug/Non Drug [...] Insured Coverage Start Date Coverage End Date [facility] [address] [address] [place] [address] [id number] Jessica Lopez Self - patient is the insured Medical (General) History Medical History History ICD Code HYPERTENSION Depression/Anxiety covid vaccinated Surgical History Surgery Date(Month/Year) hysterectomy Appendectomy kidney ablasion
--- OUTSIDE RECORDS SUMMARY | 2024-11-06 16:56 | XMS_ITS | Patient Health Record ---
Author Organization [facility] Address [address] [facility] [address] [place] [address] Care Team Providers Care Sap Technical Architect Name Role Phone Kanika Anders Unavailable [phone] Allergies Allergen (clinical drug ingredient) Drug/Non Drug [...] Oxazepam (BZO) NEG 0 - 300 ng/ml 9-tefhxoicwv-7,8-mswjeglo-7,3-diphenylpyrrolidine ([place] P) NEG 0 - 300 ng/ml Methamphetamine (MET) NEG 0 - 1000 ng/ml Methylenedioxymethamphetamine (MDMA) NEG 0 - 500 ng/ml Morphine (MOP 300/IOC1821) NEG 0 - 300 ng/ml Methadone (MTD) NEG 0 - 300 ng/ml Phencyclidine (PCP) NEG 0 - 25 ng/ml Nortriptyline (TCA) NEG 0 - 1000 ng/ml Oxycodone NEG 0 - 300 ng/ml x NEG 0 - 300 ng/ml Reason For Referral No Information Medications Medication SIG (Take, Route, Frequency, Duration) Notes Start Date End Date Status Amphetamine-Dextroamphet ER 30 MG Capsule Extended Release 24 Hour 1 capsule in the morning Oral Once a day; Duration: 30 days 10/16/2024 Active Rexulti 1 MG Tablet 1 tablet Oral Once a day; Duration: 90 days Active Rizatriptan Benzoate 10 MG Tablet Oral 04/22/2023 Active amLODIPine Besylate 5 MG Tablet Oral 04/22/2023 Active Viibryd 40 MG Tablet 1 tablet with food Oral Once a day; Duration: 90 days Active Vilazodone HCl 40 MG Tablet Oral 04/22/2023 Active Estradiol 10 MCG Tablet Vaginal 04/22/2023 Active Immunizations Vaccine Route Administration Date Status Comme nts Influenza virus vaccine, quadrivalent (IIV4), split virus, 0.25 mL dosage Unknown 02/20/2016 Administered Influenza virus vaccine, quadrivalent (IIV4), split virus, 0.25 mL dosage Unknown 11/28/2018 Administered Moderna Covid-19 Vaccine 1st dose Unknown 03/15/2020 Ad ministered Moderna Covid-19 Vaccine 1st dose Unknown 04/12/2020 Ad ministered Moderna Covid-19 Vaccine 1st dose Unknown 01/04/2021 Ad ministered Pneumococcal conjugate PCV 13 Unknown 10/22/2020 Admini stered Tdap Unknown 08/20/2019 Administered Zoster Unknown 10/22/2020 Administered Social History Tobacco Use: Social History Observation Description Date Details (start date - stop date) Never Smoker NA - NA Sex Assigned At : Social History Observation Description Sex Assigned At Female Social History Miscellaneous: Social Info Question Answer Notes Advance Care Planning Are you your own decision-maker Yes Do you have Power of Monorail Crane Operator for Health or [facility]? No Tobacco Use: Social Info Question Answer Notes Tobacco Control (Standard) Tobacco use: Nonsmoker Additional Details Category Social Info Options Details Migrated Social History Migrated Social History Alcohol Intake: Moderate 07/09/2022,Tobacco Years: Never smoker 12/05/2017,Smoking Status: 0 01/21/2023 Problems Problem Type SNOMED Code ICD Code Onset Dates Problem Status W/U Status Risk Notes Problem Mild recurrent major depression (73889216) Major depressive disorder, recurrent, mild (F33.0) 04/22/19 Active confirmed Problem Generalized anxiety disorder (92025627) Generalized anxiety disorder (F41.1) 04/22/19 Active confirmed Problem Primary insomnia (2377096) Primary insomnia (F51.01) 04/22/19 Active confirmed Problem Attention deficit hyperactivity disorder (947405015) Attention-deficit hyperactivity disorder, predominantly hyperactive type (F90.1) 12/14/19 Active confirmed Problem Long-term current use of drug therapy (294694338) Other chcf (current) drug therapy (Z79.899) 04/22/19 Active confirmed Vital Signs Heart Rate 97 /min 08/14/2024 Respiratory Rate 16 /min 08/14/2024 Height-cm 157.48 cm 08/14/2024 Blood pressure diastolic 83 mm Hg 08/14/2024 Weight-kg 78.47 kg 08/14/2024 Height 62.00 in 08/14/2024 Blood pressure systolic 120 mm Hg 08/14/2024 Weight 173.0 lbs 08/14/2024 BMI 31.64 kg/m2 08/14/2024 Encounters Encounter Location Date Provider Diagnosis [facility] [employer] [address] [address] 02/20/2024 Kanika Anders Generalized anxiety disorder F41.1 ; Major depressive disorder, recurrent, mild F33.0 ; Attention-deficit hyperactivity disorder, predominantly hyperactive type F90.1 ; Other chcf (current) drug therapy Z79.899 and Primary insomnia F51.01 [facility] [employer] [address] [address] 05/21/2024 Kanika Anders Generalized anxiety disorder F41.1 ; Major depressive disorder, recurrent, mild F33.0 ; Attention-deficit hyperactivity disorder, predominantly hyperactive type F90.1 ; Other continuous churn buttermaker (current) drug therapy Z79.899 ; Primary insomnia F51.01 and Encounter for screening for depression Z13.31 [facility] [place] [id number] [facility] [address] [address] 08/14/2024 Kanika Anders Generalized anxiety disorder F41.1 ; Major depressive disorder, recurrent, mild F33.0 ; Attention-deficit hyperactivity disorder, predominantly hyperactive type F90.1 ; Other chcf (current) drug therapy Z79.899 ; Primary insomnia F51.01 ; Encounter for screening for depression Z13.31 and Negative depression screening Z13.31 [facility] [address] [place] [address] 10/16/2024 Kanika Thery Attention-deficit hyperactivity disorder, predominantly hyperactive type F90.1 [facility] [address] [place] [address] 12/08/2023 Kanika Thery Attention-deficit hyperactivity disorder, predominantly hyperactive type F90.1 [facility] [address] [place] [address] 01/12/2024 Kanika Thery Attention-deficit hyperactivity disorder, predominantly hyperactive type F90.1 [facility] [address] [place] [address] 02/07/2024 Kanika Thery Attention-deficit hyperactivity disorder, predominantly hyperactive type F90.1 [facility] [address] [place] [address] 03/05/2024 Knaika Thery Attention-deficit hyperactivity disorder, predominantly hyperactive type F90.1 [facility] [address] [place] [address] 04/16/2024 Kanika Thery Attention-deficit hyperactivity disorder, predominantly hyperactive type F90.1 [facility] [address] [place] [address] 04/16/2024 Kanika Thery [facility] [address] [place] [address] 05/17/2024 Kanika Thery [facility] [address] [place] [address] 06/18/2024 Kanika Thery Attention-deficit hyperactivity disorder, predominantly hyperactive type F90.1 [facility] [address] [place] [address] 07/19/2024 Kanika Thery Attention-deficit hyperactivity disorder, predominantly hyperactive type F90.1 [facility] [address] [place] [address] 09/17/2024 Kanika Thery Attention-deficit hyperactivity disorder, predominantly hyperactive type F90.1 Assessments Encounter Date Diagnosis (ICD Code) Assessment Notes Treatment Notes Treatment Clinical Notes Section Notes 12/08/2023 Attention-defici t hyperactivity disorder, predominantly hyperactive [...] mg at noon no refill needed today [facility] pharmacy ADHD stimulates education Discuss with patient risk of misuse, abuse, and addiction before prescribing stimulant medicines. Manager Cash patients not to share their prescribed stimulant [...] warranted by the prescribed dosage. Random [facility] [place] prescription reviewed 4. Primary insomnia -stable 5. [...] mg in am no refill needed today [facility] pharmacy ADHD stimulates education Discuss with patient risk of misuse, abuse, and addiction before prescribing stimulant medicines. Manager Cash patients not to share their prescribed stimulant [...] than warranted by the prescribed dosage. Random [facility] prescription reviewed 4. Primary insomnia -stable 5. [...] disorder -Adderall ER 30 mg [facility] ADHD stimulates education Discuss with patient risk of misuse, abuse, and addiction before prescribing stimulant medicines. Manager Cash patients not to share their prescribed stimulant [...] than warranted by the prescribed dosage. Random [facility] prescription reviewed 4. Primary insomnia -stable 5. Long-term drug therapy 09/17/2024 Attention-defici t hyperactivity disorder, predominantly hyperactive type (ICD-10 - F90.1) 10/16/2024 Attention-defici t hyperactivity disorder, predominantly hyperactive type [...] disorder -Adderall ER 30 mg in am [facility] ADHD stimulates education Discuss with patient risk of misuse, abuse, and addiction before prescribing stimulant medicines. Manager Cash patients not to share their prescribed stimulant [...] than warranted by the prescribed dosage. Random [facility] prescription reviewed 4. Primary insomnia -stable 5. [...] mg in am no refill needed today [facility] ADHD stimulates education Discuss with patient risk of misuse, abuse, and addiction before prescribing stimulant medicines. Manager Cash patients not to share their prescribed stimulant [...] than warranted by the prescribed dosage. Random [facility] prescription reviewed 4. Primary insomnia -stable 5. [...] mg at noon no refill needed today [facility] pharmacy ADHD stimulates education Discuss with patient risk of misuse, abuse, and addiction before prescribing stimulant medicines. Manager Cash patients not to share their prescribed stimulant [...] warranted by the prescribed dosage. [facility] [place] prescription reviewed 4. Primary insomnia -stable 5. [...] mg at noon no refill needed today [facility] pharmacy ADHD stimulates education Discuss with patient risk of misuse, abuse, and addiction before prescribing stimulant medicines. Manager Cash patients not to share their prescribed stimulant [...] than warranted by the prescribed dosage. Random [facility] prescription reviewed 4. Primary insomnia -stable 5. Long-term drug therapy 02/20/2024 Other continuous churn buttermaker (current) drug therapy (ICD-10 - Z79.899) Medication [...] mg at noon no refill needed today [facility] pharmacy ADHD stimulates education Discuss with patient risk of misuse, abuse, and addiction before prescribing stimulant medicines. Manager Cash patients not to share their prescribed stimulant [...] than warranted by the prescribed dosage. Random [facility] prescription reviewed 4. Primary insomnia -stable 5. [...] mg in am [facility] ADHD stimulates education Discuss with patient risk of misuse, abuse, and addiction before prescribing stimulant medicines. Manager Cash patients not to share their prescribed stimulant [...] requests than warranted by the prescribed dosage. [facility] prescription reviewed 4. Primary insomnia -stable 5. [...] hyperactivity disorder -Adderall ER 30 mg in [facility] ADHD stimulates education Discuss with patient risk of misuse, abuse, and addiction before prescribing stimulant medicines. Manager Cash patients not to share their prescribed stimulant [...] requests than warranted by the prescribed dosage. [facility] prescription reviewed 4. Primary insomnia -stable 5. Long-term drug therapy 08/14/2024 Other continuous churn buttermaker (current) drug therapy (ICD-10 - Z79.899) Medication Refill: Care Instructions material was published 1. major depressive Rexulti 1 mg daily for depression (apathetic mood with 2 mg dose ) continue Viibryd 40 mg daily 2. Generalized anxiety disorder - Buspar 10 mg a day- no refill needed 3. Attention deficit hyperactivity disorder -Adderall ER 30 mg in [facility] ADHD stimulates education Discuss with patient risk of misuse, abuse, and addiction before prescribing stimulant medicines. Manager Cash patients not to share their prescribed stimulant [...] requests than warranted by the prescribed dosage. [facility] prescription reviewed 4. Primary insomnia -stable 5. Long-term drug therapy 05/21/2024 Other chcf (current) drug therapy (ICD-10 - Z79.899) Medication Refill: Care Instructions material was published 1. major depressive Rexulti 1 mg daily for depression (apathetic mood with 2 mg dose ) continue Viibryd 40 mg daily 2. Generalized anxiety disorder - Buspar 10 mg twice a day- 3. Attention deficit hyperactivity disorder -Adderall ER 30 mg in am no refill needed today [facility] ADHD stimulates education Discuss with patient risk of misuse, abuse, and addiction before prescribing stimulant medicines. Manager Cash patients not to share their prescribed stimulant [...] than warranted by the prescribed dosage. Random [facility] prescription reviewed 4. Primary insomnia -stable 5. [...] mg at noon no refill needed today [facility] ADHD stimulates education Discuss with patient risk of misuse, abuse, and addiction before prescribing stimulant medicines. Manager Cash patients not to share their prescribed stimulant [...] than warranted by the prescribed dosage. Random [facility] prescription reviewed 4. Primary insomnia -stable 5. [...] mg in am no refill needed today [facility] pharmacy ADHD stimulates education Discuss with patient risk of misuse, abuse, and addiction before prescribing stimulant medicines. Manager Cash patients not to share their prescribed stimulant [...] than warranted by the prescribed dosage. Random [facility] prescription reviewed 4. Primary insomnia -stable 5. [...] disorder -Adderall ER 30 mg in am [facility] pharmacy ADHD stimulates education Discuss with patient risk of misuse, abuse, and addiction before prescribing stimulant medicines. Manager Cash patients not to share their prescribed stimulant [...] than warranted by the prescribed dosage. Random [facility] prescription reviewed 4. Primary insomnia -stable 5. [...] mg in am no refill needed today [facility] ADHD stimulates education Discuss with patient risk of misuse, abuse, and addiction before prescribing stimulant medicines. Manager Cash patients not to share their prescribed stimulant [...] than warranted by the prescribed dosage. Random [facility] prescription reviewed 4. Primary insomnia -stable 5. Long-term drug therapy 08/14/2024 Encounter for screening for depression (ICD-10 - Z13.31) 1. major depressive Rexulti 1 mg daily for depression (apathetic mood with 2 mg dose ) continue Viibryd 40 mg daily 2. Generalized anxiety disorder - Buspar 10 mg a day- no refill needed 3. Attention deficit hyperactivity disorder -Adderall ER 30 mg in [facility] ADHD stimulates education Discuss with patient risk of misuse, abuse, and addiction before prescribing stimulant medicines. Manager Cash patients not to share their prescribed stimulant [...] than warranted by the prescribed dosage. Random [facility] prescription reviewed 4. Primary insomnia -stable 5. Long-term drug therapy 08/14/2024 Negative depression screening (ICD-10 - Z13.31) 1. major depressive Rexulti 1 mg daily for depression (apathetic mood with 2 mg dose ) continue Viibryd 40 mg daily 2. Generalized anxiety disorder - Buspar 10 mg a day- no refill needed 3. Attention deficit hyperactivity disorder -Adderall ER 30 mg in am [facility] pharmacy ADHD stimulates education Discuss with patient risk of misuse, abuse, and addiction before prescribing stimulant medicines. Manager Cash patients not to share their prescribed stimulant [...] warranted by the prescribed dosage. [facility] [place] prescription reviewed 4. Primary insomnia -stable 5. Long-term drug therapy Plan Of Treatment Next Appt Details Provider Name:Kanika Anders , 11/13/2024 04:15:00 PM, [address], [address], [place], [address], Insurance Providers Payer Name Payer Address Payer Phone Subscriber Number Group Number Insured Name Patient Relationship to Insured Coverage Start Date Coverage End Date [facility] [address] [address] [place] [address] [id number] RAFAL KING Spouse - patient is the spouse of the insured Medical (General) History Medical History History ICD Code Problems: Attention deficit hyperactivit y disorder Generalized anxiety disorder Long-term drug therapy Migraine Primary insomnia Recurrent major depressive episodes, mil d Recurrent major depressive episodes, mod erate , Surgical History Surgery Date(Month/Year) Endometrial ablation (86131) 02/28/2009 Hysterectomy (30755) 02/28/2014 Appendectomy (09802) 02/28/2018
--- OUTSIDE RECORDS SUMMARY | 2024-11-06 16:56 | XMS_ITS | Clinical Summary ---
Author Organization [facility] Address [address] [place] [address] Care Team Providers Care Home Health Nurse Licensed Practical Name Role Phone Unavailable Primary Care Provider Unavailabl e Source Comments [facility],non-owned Affiliates and Associated Physician Practices is amultiple site organization consisting of ambulatory clinics and hospital sitesin [place], [place], [place] and [place]. This disclosure is being madepursuant to the Care Everywhere program and may not contain all information available regarding this patient. Last updated 17.[facility] Allergies Active Allergy Reactions Criticality Noted Date Comments Cephalexin Urticaria,Rash Medium 10/01/2019 Sulfa Drugs Other Low 10/01/2019 Causes Low Blood sugar Medications * Be aware that medications may not be up to date on this document. Alwaysverify current medications with the patient. amLODIPine (Norvasc) 5 MG tablet Take 1 (one) tablet by mouth once daily 5 Active amphetamine-dex troamphetamine (Adderall) 10 MG tablet TAKE 1 TABLET BY MOUTH ONCE DAILY AT NOON Active brexpiprazole (Rexulti) 1 MG tablet Take 1 (one) tablet by mouth once daily Active busPIRone (Buspar) 10 MG tablet Take 1 (one) tablet by mouth 3 times daily Active Cholecalciferol 125 MCG (5000 UT) Take 1 (one) tablet by mouth once daily Active D-MANNOSE PO Take by mouth Act owen estradiol (Vagifem) 10 MCG vaginal tablet INSERT 1 TABLET VAGINALLY TWO NIGHTS A WEEK 5 Active tiZANidine (Zanaflex) 4 MG tablet TAKE 1 TABLET BY MOUTH EVERY 6 TO 8 HOURS NEEDED. DO NOT EXCEED 3 DOSES IN 24 HOURS. Active vilazodone (Viibryd) 40 MG tablet Take 1 (one) tablet by mouth once daily Active Encounters Date Type Department Care Team Description 10/30/2024 Results Follow-Up [facility] [address] [place] [address] Miranda Willard RN 10/26/2024 11:10 AM CDT - 10/26/2024 11:59 PM CDT Hospital Encounter [facility] [address] [place] [address] Juan Carlos Meyer APRN-CNP Pfeifer, Hannah, APRN-CNP Discharge Disposition: Home or Self Care from Last 3 Months Social History Tobacco Use Types Packs/Day Years Used Date Smoking Tobacco: Never Assessed Comments Unknown Sex and Gender Information Value Date Recorded Sex Assigned at Not on file Legal Sex Female 4:15 AM CDT Gender Identity Not on file Sexual Orientation Not on file Last Filed Vital Signs Vital Sign Reading Time Taken Comments Blood Pressure 115/76 10/26/2024 11:18 AM CDT Pulse 98 10/26/2024 11:18 AM CDT Temperature 36.4 C (97.6 F) 10/26/2024 11:18 AM CDT Respiratory Rate 16 10/26/2024 11:18 AM CDT Oxygen Saturation 100% 10/26/2024 11:18 AM CDT Inhaled Oxygen Concentration - - Weight 77.6 kg (171 lb) 10/26/2024 11:18 AM CDT Height 154.9 cm (5' 1) 10/26/2024 11:18 AM CDT Body Mass Index 32.31 10/26/2024 11:18 AM CDT Plan of Treatment Health Maintenance Due Date Last Done Comments COLOGUARD (AGES 45-75) - COLON CA SCREENING 1970 COLON MONITORING 1970 COLONOSCOPY - COLON CA SCREENING 1970 CT COLONOGRAPHY - COLON CA SCREENING 1970 Colorectal Cancer Screening 1970 FIT - COLON CA SCREENING 1970 FLEX SIG - COLON CA SCREENING 1970 LIPID TESTING 1970 HIV SCREENING 1985 HEPATITIS C SCREENING 04/12/1988 DTAP/TDAP/TD VACCINES (1 - Tdap) 1989 HEPATITIS B VACCINE (1 of 3 - 19+ 3-dose series) 1989 PNEUMOCOCCAL VACCINE 50+ (1 of 1 - PCV) 2020 ZOSTER VACCINE (1 of 2) 2020 DEPRESSION SCREENING 02/29/2024 COVID-19 VACCINE (4 - season) 2024 01/04/2021, 04/12/2020, 03/15/2020 INFLUENZA VACCINE (#1) 2024 , 03/30/2023, 11/27/2021, Additional history exists MAMMOGRAM 09/26/2025 09/27/2023, 08/30, 09/14/2022, Additional history exists HIB VACCINE Aged Out No longer eligi ble based on patient's age to complete this topic HPV VACCINE Aged Out No longer eligi ble based on patient's age to complete this topic MENINGOCOCCAL (Group B) VACCINE SHARED DECISION-MAKING Aged Out No longer eligible based on patient's age to complete this topic MENINGOCOCCAL GROUPS A/C/Y/W VACCINE Aged Out No longer eligible based on patient's age to complete this topic Procedures Procedure Name Priority Date/Time Associated Diagnosis Comments CULTURE URINE Routine 10/26/2024 11:45 AM CDT Dysuria URINALYSIS - POCT (IP) URGENT CARE Routine 10/26/2024 11:29 AM CDT Dysuria from Last 3 Months Results * CULTURE URINE (10/26/2024 11:45 AM CDT) Culture Urine 10,000-50,000 CFU/mL urogenital melba BASILIO 10/28/2024 2:43 AM CDT [facility] Urine URINE SPECIMEN OBTAINED BY CLEAN CATCH PROCEDURE / Unknown Collection / Unknown 10/26/2024 11:45 AM CDT 10/26/2024 11:45 AM CDT Abbie Champagne APRN-[facility] - MICROBIOLOGY ORDER TIMA Final Result [facility] [address] [place] [address], [facility] [phone] * URINALYSIS - POCT (IP) URGENT CARE (10/26/2024 11:29 AM CDT) Glucose UA NEG Negative [facility] Bilirubin UA NEG Negative [facility] Ketone UA NEG Negative [facility] Specific [place] UA POCT 1.005 1.000 - 1.030 [facility] Blood UA NEG Negative [facility] pH UA 6.5 5.0 - 8.0 pH units [facility] Protein UA NEG Negative [facility] Urobilinogen UA 0.2 0.2 - 1.0 EU/dL [facility] Nitrite UA NEG Negative [facility] Leukocyte UA NEG Negative [facility] QC Verified Yes Yes [facility] Urine URINE / Unknown 10/26/2024 1 1:29 AM CDT Abbie [facility] - POINT OF CARE ORDE RABMINNA Final Result [facility] [address] [place] [address], [facility] [phone] from Last 3 Months Insurance [facility] [place] [address] [place] [address] [facility] * Guarantor: HANNAH KING Account Type Relation to Patient Date of Phone Billing Address Personal/Family Spouse
--- OUTSIDE RECORDS SUMMARY | 2024-11-06 16:56 | XMS_ITS | Clinical Summary ---
Author Organization [facility] Address [address] [place] [address] Care Team Providers Care Manager Social Responsibility Name Role Phone Romeo Dobbs MD Primary Care Provider + [phone] Allergies Active Allergy Reactions Criticality Noted Date [...] 1 tablet (40 mg total) by mouth farm crops teacher before breakfast Active brexpiprazole (Rexulti) 1 mg tabletIndications :Depression Treatment Adjunct Take 1 tablet (1 mg total) by mouth farm crops teacher before breakfast Active amLODIPine (NORVASC) 5 mg tabletIndications :hypertension Take 1 tablet (5 mg total) by mouth farm crops teacher before breakfast 3 Active rizatriptan (MAXALT) 10 [...] 1 tablet (5,000 Units total) by mouth farm crops teacher before breakfast Active acidophilus-pecti n, citrus 100 million cell-10 mg capsuleIndication s:Gut Health Take 1 tablet by mouth farm crops teacher before breakfast Active nitrofurantoin monohydrate (MACROBID) 100 mg capsuleIndication s:Postcoital UTI Take 1 tablet by mouth after intercourse 30 capsule 5 4 Active Additional Information Patient not taking.Reported on 07/21/2023 d-mannose powder Take by mouth Active estradioL (VAGIFEM) 10 mcg tabletIndications :Recurrent UTI INSERT 1 TABLET VAGINALLY TWO NIGHTS A WEEK 18 tablet 4 5 Active Active Problems Problem Noted Date Diagnosed [...] 03/30/2023 Assessment & Plan (03/31/2023 7:52 AM PAVING SUPERVISOR): Incidentally diagnosed on MRI during workup for [...] 03/30/2023 Assessment & Plan (03/30/2023 4:15 PM PAVING SUPERVISOR): Resume home amlodipine tomorrow Anxiety and depression 03/30/2023 Assessment & Plan (03/30/2023 4:16 PM PAVING SUPERVISOR): Continue home buspirone and vilazodone. Home Rexulti [...] on file Legal Sex Female 7:19 AM PAVING SUPERVISOR Gender Identity Not on file Sexual Orientation Not on file Obstetrics History Last Filed Vital Signs Vital Sign Reading Time Taken Comments Blood Pressure 120/79 07/21/2023 3:45 PM CDT Pulse 84 03/31/2023 8:00 AM PAVING SUPERVISOR Temperature 36.6 C (97.9 F) 03/31/2023 8:00 AM PAVING SUPERVISOR Respiratory Rate 20 03/31/2023 8:00 AM PAVING SUPERVISOR Oxygen Saturation 93% 03/31/2023 8:00 AM PAVING SUPERVISOR Inhaled Oxygen Concentration - - Weight 80 [...] Zoster Vaccine (2 of 2) 12/17/2020 10/22/2020 Breast Cancer Screening-Mammogram 09/26/2024 09/27/2023, 09/14/2022, 08/07/2021, Additional history exists Covid-19 Vaccine ( - 2024- season) 2024 01/04/2021, 04/12/2020, 03/15/2020 Influenza Vaccine (#1) 2024 , 11/28/2018, 02/20/2016 [...] compared to prior imaging studies performed at [facility] on 08/06/2020, 08/07/2021 and 09/14/2022. MAMMOGRAM [...] compared to prior imaging studies performed at [facility] on 08/06/2020, 08/07/2021 and 09/14/2022. MAMMOGRAM [...] to [place] [address] [place] [address] [facility] CHO[facility] PLUS [facility]/PPO Address: [address] [address] [place] [address] [place] [address] [facility] CHO[facility]/PPO Address: [address] [place], [place] [id number] Advance Directives For more information, please contact: [phone] * Full Code (Latest Code Status on File) Date Activated Date Inactivated Comments 03/30/2023 11:54 AM 03/31/2023 1:50 PM * Full Code Date Activated Date Inactivated Comments 03/30/2023 7:04 AM 03/30/2023 11:54 AM Care Teams Manager Social Responsibility Relationship Specialty Start Date End Date Romeo Dobbs MD [address] [place] [address] PCP - General Internal Medicine 08/24/19
[2024-11-07 07:23] LABS: Creatine Kinase 37 U/L (30-135)
== END 2024-11-06 15:40 | disposition home or self-care (01) ==
LOC: CHSLAB 15:41
PROVIDERS: PCP Internal Medicine; Visit Provider Internal Medicine
DX: R74.8 Abnormal levels of other serum enzymes (principal)
CPT/HCPCS: 36415; 82550; 86140

== ENCOUNTER 2024-12-25 14:53 | Emergency (ER) | payer OTHER, SELFPAY ==
[2024-12-25] VITALS (14 sets, daily range): BP systolic 110–132; BP diastolic 61–81; PULSE 71–106; RESP 15–23; O2SAT 96–100
--- NOTE | ~2024-12-25 | US_ITS ---
EXAMINATION: US venous doppler [facility], 12/25/2024 15:20 CDT HISTORY: calf pain Comparison: None Technique: Reyes-scale and color Doppler images were attempted of the lower saphenofemoral junction, common femoral vein,superficial femoral vein, proximal deep femoral vein, proximal deep femoral vein, popliteal vein and posterior tibial veins. Findings: Deep Venous System:Normal flow, augmentation and compressibility. No echogenic thrombus identified. The contralateral saphenofemoral junction appears unremarkable. Superficial Venous SystemNo superficial thrombophlebitis. Soft tissues: Soft tissues are unremarkable. Impression: Negative for DVT. Reviewed, dictated and finalized at location P. Impression: Negative for DVT.
--- NOTE | ~2024-12-25 | XR_ITS ---
Clinical history:Chest pain EXAM:X-ray chest 2 views TECHNIQUE:Frontal and lateral images of the chest were obtained. Comparisons:01/12/2023 FINDINGS: Heart is not enlarged. No pneumothorax. No pleural effusion. No free air the diaphragm. No focal pulmonary consolidation. Stable 6 mm calcified granuloma in the right lung. IMPRESSION: 1. No acute pulmonary process identified. If symptoms persist or worsen, consider a short-term follow-up study or additional imaging for further assessment. Reviewed, dictated and finalized at location Q. IMPRESSION: 1. No acute pulmonary process identified. If symptoms persist or worsen, consider a short-term follow-up study or additio nal imaging for further assessment.
--- NOTE | ~2024-12-25 | CT_ITS ---
EXAMINATION: CTA chest PE protocol DATE: 12/25/2024 15:43 INDICATION: Chest pain. TECHNIQUE: Computed tomography angiography (CTA) of the chest was performed with 100 mL Omnipaque-350 intravenous contrast timed to evaluate the pulmonary arteries. Coronal maximum intensity projection 3D-reconstructions were created by the technologist. Automated exposure control and iterative reconstruction technique were employed. The dose-length product was 286.89 mGy-cm. COMPARISON: CT abdomen and pelvis 04/08/2023 FINDINGS: Calcified right lung nodules and calcified right hilar lymph nodes are consistent with old granulomatous disease. There is mild atelectasis bilaterally. There is a chronic 5 mm nodule in right lower lobe, likely benign. No pleural effusion. The heart size is normal. No pericardial effusion. There is no pulmonary embolus. There is diffuse hepatic steatosis. There is mild atrophy of left kidney. 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 There is mild chronic anterior wedging of T12 and T11 vertebral bodies. IMPRESSION: 1. No pulmonary embolus. Reviewed, dictated and finalized at location E. IMPRESSION: 1. No pulmonary embolus.
--- NOTE | 2024-12-25 14:54 | ECG_ITS ---
Test Date: 2024-12-25 15:02:18 Measurements Intervals Murphy Rate: 102 P: 71 SD: 154 QRS: 51 QRSD: 82 T: 38 QT: 326 QTc: 425 Interpretive Statements SINUS TACHYCARDIA BASELINE ARTIFACT- I, II, III, AVR, AVL, AVF BORDERLINE ECG No previous ECG available for comparison Electronically Signed On 12-25-2024 15:03:32 CDT by Sunil Ayala D.O.
[2024-12-25] MEDS: ASPIRIN 81 MG CHEWABLE TABLET 324 MG PO (15:05)
[2024-12-25 15:11] LABS: Hematocrit 40.6 % (37.0-47.0); Hemoglobin 13.8 g/dL (12.0-15.0); Immature Granulocyte Percent A 0.4 % (0-0.5); Lymphocytes Absolute Auto 1.70 K/mm3 (0.9-3.2); Mean Corpuscular HGB Conc 34.0 g/dl (32-36); Mean Corpuscular Hemoglobin 28.6 pg (26-34); Mean Corpuscular Volume 84.1 fl (80-100); Nucleated Red Blood Cells Absolute Auto 0.000 K/mm3 (0.0-0.012); Nucleated Red Blood Cells Perc 0.0 % (0.0-0.2); Platelet Count Result 289 k/mm3 (150-375); Red Blood Count 4.83 M/mm3 (4.2-5.4); White Blood Count 5.3 K/mm3 (4.5-10.0)
--- NOTE | 2024-12-25 15:13 | ED_ITS ---
HPI - Chest Pain General Chief Complaint: Chest Pain Stated Complaint: chest pain Time Seen by Provider: 12/25/24 14:58 History of Present Illness HPI narrative: 54-year-old female with a past medical history including generalized anxiety disorder, ADHD, gastroesophageal reflux. Patient presents to the emergency department today with chest pain. She states that occurred approximately new and was very sharp and stabbing in quality going towards her back. Patient states it came and went in waves. Subsided about 30 minutes prior to arrival. She states she has also been having some left calf cramping and pain sensations intermittently for the past few months. Endorses recent travel to [facility]. States she has a history of GERD anxiety and does not feel similar to those presentations. No associated shortness of breath. No fever, chills, abdominal pain, neck pain. Was otherwise in her normal state of health. No history of cardiac events of thromboembolic disease to her knowledge. No traumatic injuries. Related Data Home Medications ?Medication ?Instructions ?Recorded ?Confirmed ?Last Taken ?Type Adderall XR 30 mg PO DAILY 09/03/2209/29 Unknown History brexpiprazole 1 mg tablet (Rexulti) 1 mg PO DAILY 09/1910/24/22 Unknown History buspirone 10 mg tablet 10 mg PO TID 09/03/22 Unknown History vilazodone 40 mg tablet (Viibryd) 40 mg PO DAILY 09/0310/24/22 10/24/22 History 0900 dextroamphetamine-amphetamine 10 10 mg PO .NOON 10/24/22 Unknown History mg tablet Allergies Allergy/AdvReac Type Severity Reaction Status Date / Time cephalexin Allergy Unknown Rash Verified 12/25/24 15:01 Sulfa (Sulfonamide Allergy Unknown Other Verified 12/25/24 15:01 Antibiotics) Review of Systems 2 Review of Systems: As [facility] Family History Family History Grandparent Diabetes mellitus Social History Social History Smoking status: Never smoker Alcohol intake: current Drinks per week: 2 Substance use: never Lack of Transportation: No Lack of Food: Never True Current Housing: I Have Housing Concerned About Future Housing: No Difficulty Paying Gas/Electric Bills: No Difficulty Paying for Meds: No Currently Unemployed: No Education: Master's Degree or Higher Difficulty w/ Childcare or Family Care: No Living arrangements: with family Spiritual care concerns: No Exam 2 Narrative: GENERAL: [Well-appearing, well-nourished, and in no acute distress.] HEAD: [Normocephalic, atraumatic.] EYES: [PERRLA and EOMI.] ENT: Nares clear, no rhinorrhea or epistaxis. Mucous membranes moist. NECK: Supple. CHEST: Clear to auscultation, no respiratory distress. Left costochondral junction anteriorly has some reproducible component of pain but crepitus or deformity. HEART: [Regular rate and rhythm]. No murmur heard. [Normal peripheral pulses.] ABDOMEN: [Soft, nondistended], [nontender], [No rigidity or guarding] EXTREMITIES: Normal range of motion. Left calf pain reproducible with palpation but no asymmetric leg findings or edema. No distended veins. SKIN: Warm, dry, no rash. NEURO: [No focal deficits]. Alert and oriented [x3.] PSYCH: [Normal mood and affect.] Course Vital Signs Vital signs: Vital Signs Pulse Rate 106 H 12/25/24 14:59 Respiratory Rate 18 12/25/24 14:59 Blood Pressure 132/75 12/25/24 14:59 Pulse Oximetry 100 12/25/24 14:59 Oxygen Delivery Autopap 12/25/24 14:59 Pulse Rate 71 12/25/24 19:21 Respiratory Rate 19 12/25/24 19:21 Blood Pressure 110/78 12/25/24 19:21 Pulse Oximetry 100 12/25/24 19:21 Oxygen Delivery Autopap 12/25/24 14:59 MDM - Chest Pain MDM Narrative Medical decision making narrative: 54-year-old female with a past medical history including generalized anxiety disorder, ADHD, gastroesophageal reflux. Patient presents to the emergency department today with chest pain. She states that occurred approximately new and was very sharp and stabbing in quality going towards her back. Patient states it came and went in waves. Subsided about 30 minutes prior to arrival. She states she has also been having some left calf cramping and pain sensations intermittently for the past few months. Endorses recent travel to [facility]. States she has a history of GERD anxiety and does not feel similar to those presentations. No associated shortness of breath. No fever, chills, abdominal pain, neck pain. Was otherwise in her normal state of health. No history of cardiac events of thromboembolic disease to her knowledge. No traumatic injuries. Patient is mildly tachycardic but saturating 100% on room air without any tachypnea. Normal blood pressure. Suspicion raise for musculoskeletal chest pain, ACS, thromboembolic event such as PE. Low suspicion aortic process. Low suspicion pneumothorax or pneumonia without any cough for fever. Broad workup obtained at this time including ultrasound of the left leg and a CT angiography of the chest with cardiac enzymes and EKG and troponin trending. Workup shows no leukocytosis or anemia. Negative troponin. Negative delta troponin. Electrolytes are unremarkable. Normal creatinine. Normal glucose. Normal LFTs. Normal lipase. Venous Doppler negative. No pulmonary embolism. Chest x-ray unremarkable. EKG is unremarkable. Patient is hemodynamically stable and symptoms resolved prior to arrival. Safe for discharge home at this time with regular PCP follow-up. Medical Records Data Attestation: I reviewed the patient's medical records. Lab Data Attestation: I reviewed the patient's lab results. 12/25/24 15:03 12/25/24 15:03 Labs: Lab Results 12/25/24 12/25/24 Range/Units 15:03 18:02 WBC 5.3 (4.5-10.0) K/mm3 RBC 4.83 (4.2-5.4) M/mm3 Hgb 13.8 (12.0-15.0) g/dL Hct 40.6 (37.0-47.0) % MCV 84.1 (80-100) fl MCH 28.6 (26-34) pg MCHC 34.0 (32-36) g/dl RDW 13.2 (11.5-14.5) % Plt Count 289 (150-375) k/mm3 MPV 9.6 (7.4-10.4) fl Immature Gran % (Auto) 0.4 (0-0.5) % Neut % (Auto) 54.0 (45.5-73.1) % Lymph % (Auto) 32.3 (18.3-44.2) % Brown % (Auto) 10.6 H (2.6-8.5) % Eos % (Auto) 1.9 (0-4.4) % Baso % (Auto) 0.8 (0.2-1.2) % Lymph # (Auto) 1.70 (0.9-3.2) K/mm3 Brown # (Auto) 0.6 (0.1-0.6) K/mm3 Eos # (Auto) 0.1 (0-0.3) K/mm3 Baso # (Auto) 0.0 (0.0-0.1) K/mm3 Abs Immat Gran (auto) 0.02 (0.00-0.031) K/mm3 Absolute Neuts (auto) 2.9 (1.3-6.7) K/mm3 Absolute Nucleated RBC 0.000 (0.0-0.012) K/mm3 Nucleated RBC % 0.0 (0.0-0.2) % PT 13.3 (11.1-14.7) Seconds INR 1.0 APTT 25.4 (22.3-36.8) Seconds Sodium 136 L (137-145) mmol/L Potassium 4.0 (3.4-5.0) mmol/L Chloride 99 (98-107) mmol/L Carbon Dioxide 27 (22-30) mmol/L Anion Gap 10 (4-12) mmol/L BUN 14 (7-17) mg/dL Creatinine 0.86 (0.7-1.0) mg/dL Estim Creat Clear Calc 56 ml/min Estimated GFR > 60 (59 - ) Glucose 101 (65-110) mg/dL Calcium 9.4 (8.4-10.2) mg/dL Total Bilirubin 0.4 (0.2-1.3) mg/dL AST 31 (14-36) U/L ALT 35 (6-35) U/L Alkaline Phosphatase 94 (38-126) U/L Troponin I < 0.012 < 0.012 (0.000-0.034) ng/mL Total Protein 8.3 H (6.3-8.2) g/dL Albumin 4.8 (3.5-5.1) g/dL Lipase 137 (23-300) U/L Imaging Data Attestation: I personally reviewed and interpreted this imaging study as follows: My impression: Impressions Chest X-Ray 10/28/25 15:22 IMPRESSION: 1. No acute pulmonary process identified. If symptoms persist or worsen, consider a short-term follow-up study or additional imaging for further assessment. Chest CTA 12/25/24 15:43 IMPRESSION: 1. No pulmonary embolus. Venous Doppler Study 12/25/24 15:44 Impression: Negative for DVT. Discharge Plan Discharge Clinical Impression: Chest pain Patient Disposition: Home Condition: Stable Instructions: Antibiotic Form, Chest Pain (ED), Chest Wall Pain (ED) Additional Instructions: Your laboratory studies all came back normal. No signs of any cardiac damage. No signs of a blood clot. Negative DVT study. No signs of pulmonary embolism or any acute lung problem or vascular problem in your chest. EKGs are normal. Symptoms in the left side of the sternum likely musculoskeletal in nature rather than intrathoracic or GI related. Follow-up with regular primary care provider. Take Tylenol and ibuprofen for pain control in addition to your home medications. Return with any worsening new or emergent concerns. Patient Language: Slovak Prescriptions: No Action dextroamphetamine-amphetamine 10 mg tablet 10 mg PO .NOON rizatriptan [Maxalt] 10 mg Tablet 10 mg PO ONCE PRN (Reason: Migraine Headache) Qty: 9 0RF acetaminophen 500 mg Tablet 1,000 mg PO Q6H PRN (Reason: Mild Pain (1-3) Or Fever) Qty: 0 0RF Adderall XR 30 mg PO DAILY buspirone 10 mg Tablet 10 mg PO TID vilazodone [Viibryd] 40 mg Tablet 40 mg PO DAILY Rx Instructions: must administer with a meal/food Rexulti 1 mg tablet 1 mg PO DAILY Follow-up/Referrals: Romeo Dobbs MD [Primary Care Provider, Internal Medicine] Time of Disposition: 19:09
[2024-12-25 15:25] LABS: INR 1.0; Partial Thromboplastin Time 25.4 Seconds (22.3-36.8); Prothrombin Time 13.3 Seconds (11.1-14.7)
[2024-12-25 15:26] LABS: Alanine Aminotransferase 35 U/L (6-35); Albumin Level 4.8 g/dL (3.5-5.1); Alkaline Phosphatase 94 U/L (38-126); Anion Gap 10 mmol/L (4-12); Aspartate Amino Transferase 31 U/L (14-36); Bilirubin,Total 0.4 mg/dL (0.2-1.3); Blood Urea Nitrogen 14 mg/dL (7-17); Calcium 9.4 mg/dL (8.4-10.2); Carbon Dioxide 27 mmol/L (22-30); Chloride 99 mmol/L (98-107); Estimated CRCL calculation 56 ml/min; Estimated Glomerular Filt Rate > 60; Glucose 101 mg/dL (65-110); Lipase 137 U/L (23-300); Potassium 4.0 mmol/L (3.4-5.0); Sodium 136 mmol/L (137-145); Total Protein 8.3 g/dL (6.3-8.2)
[2024-12-25 15:37] LABS: Troponin I < 0.012 ng/mL (0.000-0.034)
--- OUTSIDE RECORDS SUMMARY | 2024-12-25 17:16 | XMS_ITS | Patient Health Record ---
Author Organization [facility] Address [address] [place] [address] Support Name Relationship Address Phone Jessica Lopez Guarantor Unknown [phone] Allergies Allergen (clinical drug ingredient) Drug/Non Drug [...] Insured Coverage Start Date Coverage End Date [facility] [address] [address] [place] [address] [phone] [id number] Jessica Lopez Self - patient is the insured Medical (General) History Medical History History ICD Code HYPERTENSION Depression/Anxiety covid vaccinated Surgical History Surgery Date(Month/Year) hysterectomy Appendectomy kidney ablasion
--- OUTSIDE RECORDS SUMMARY | 2024-12-25 17:16 | XMS_ITS | Clinical Summary ---
Author Organization [facility] Address [address] [place] [address] Care Team Providers Care Director Underwriter Sales Name Role Phone Romeo Dobbs MD Primary Care Provider + [phone] Allergies Active Allergy Reactions Criticality Noted Date [...] 1 tablet (40 mg total) by mouth cloth bale header before breakfast Active brexpiprazole (Rexulti) 1 mg tabletIndications :Depression Treatment Adjunct Take 1 tablet (1 mg total) by mouth cloth bale header before breakfast Active amLODIPine (NORVASC) 5 mg tabletIndications :hypertension Take 1 tablet (5 mg total) by mouth cloth bale header before breakfast 3 Active rizatriptan (MAXALT) 10 [...] 1 tablet (5,000 Units total) by mouth cloth bale header before breakfast Active acidophilus-pecti n, citrus 100 million cell-10 mg capsuleIndication s:Gut Health Take 1 tablet by mouth cloth bale header before breakfast Active nitrofurantoin monohydrate (MACROBID) 100 [...] 03/30/2023 Assessment & Plan (03/31/2023 7:52 AM LEAD ATG DEVELOPER): Incidentally diagnosed on MRI during workup for [...] 03/30/2023 Assessment & Plan (03/30/2023 4:15 PM LEAD ATG DEVELOPER): Resume home amlodipine tomorrow Anxiety and depression 03/30/2023 Assessment & Plan (03/30/2023 4:16 PM LEAD ATG DEVELOPER): Continue home buspirone and vilazodone. Home Rexulti [...] on file Legal Sex Female 7:19 AM LEAD ATG DEVELOPER Gender Identity Not on file Sexual Orientation Not on file Obstetrics History Last Filed Vital Signs Vital Sign Reading Time Taken Comments Blood Pressure 120/79 07/21/2023 3:45 PM CDT Pulse 84 03/31/2023 8:00 AM LEAD ATG DEVELOPER Temperature 36.6 C (97.9 F) 03/31/2023 8:00 AM LEAD ATG DEVELOPER Respiratory Rate 20 03/31/2023 8:00 AM LEAD ATG DEVELOPER Oxygen Saturation 93% 03/31/2023 8:00 AM LEAD ATG DEVELOPER Inhaled Oxygen Concentration - - Weight 80 [...] compared to prior imaging studies performed at [facility] on 08/06/2020, 08/07/2021 and 09/14/2022. MAMMOGRAM FINDINGS: [...] compared to prior imaging studies performed at [facility] on 08/06/2020, 08/07/2021 and 09/14/2022. MAMMOGRAM FINDINGS: [...] to [place] [address] [place] [address] [facility] CHOICE PLUS [facility] H[facility]/PPO Address: [address] [address] [place] [address] [place] [address] [facility] CHOICE PL[facility]/PPO Address: [address] [place], [place] [id number] Advance Directives For more information, please contact: [phone] * Full Code (Latest Code Status on File) Date Activated Date Inactivated Comments 03/30/2023 11:54 AM 03/31/2023 1:50 PM * Full Code Date Activated Date Inactivated Comments 03/30/2023 7:04 AM 03/30/2023 11:54 AM Care Teams Director Underwriter Sales Relationship Specialty Start Date End Date Romeo Dobbs MD [address] [place] [address] PCP - General Internal Medicine 08/24/19
--- OUTSIDE RECORDS SUMMARY | 2024-12-25 17:16 | XMS_ITS | Encounter Summary ---
Author Organization [facility] Address [address] [place] [address] Care Team Providers Care Field Attendant Name Role Phone Unavailable Primary Care Provider Unavailabl e Encounter Details Date Type Department Care Team (Late st Contact Info) Description 10/30/2024 Results Follow-Up [facility] [address] [place] [id number] Miranda Willard, RN Social History Tobacco Use [...]
--- OUTSIDE RECORDS SUMMARY | 2024-12-25 17:16 | XMS_ITS | Clinical Summary ---
Author Organization [facility] Address [address] [place] [address] Care Team Providers Care Nursing Manager Name Role Phone Unavailable Primary Care Provider Unavailabl e Source Comments [facility],non-owned Affiliates and Associated Physician Practices is amultiple site organization consisting of ambulatory clinics and hospital sitesin [place], [place], [place] and [place]. This disclosure is being madepursuant to the Care Everywhere program and may not contain all information available regarding this patient. Last updated 17.[facility] Allergies Active Allergy Reactions Criticality Noted Date [...] Department Care Team Description 10/30/2024 Results Follow-Up [facility] [address] [place] [address] Miranda Willard RN 10/26/2024 11:10 AM CDT - 10/26/2024 11:59 PM CDT Hospital Encounter [facility] [address] [place] [address] Juan Carlos Meyer APRN-CNP Pfeifer, Hannah, APRN-CNP [...] urogenital melba BASILIO 10/28/2024 2:43 AM CDT [facility] Urine URINE SPECIMEN OBTAINED BY CLEAN CATCH PROCEDURE / Unknown Collection / Unknown 10/26/2024 11:45 AM CDT 10/26/2024 11:45 AM CDT Abbie Champagne APRN-[facility] - MICROBIOLOGY ORDER TIMA Final Result [facility] [address] [place] [address], [facility] [phone] * URINALYSIS - POCT (IP) URGENT CARE (10/26/2024 11:29 AM CDT) Glucose UA NEG Negative [facility] Bilirubin UA NEG Negative [facility] Ketone UA NEG Negative [facility] Specific [place] UA POCT 1.005 1.000 - 1.030 [facility] Blood UA NEG Negative [facility] pH UA 6.5 5.0 - 8.0 pH units [facility] Protein UA NEG Negative [facility] Urobilinogen UA 0.2 0.2 - 1.0 EU/dL [facility] Nitrite UA NEG Negative [facility] Leukocyte UA NEG Negative [facility] QC Verified Yes Yes [facility] Urine URINE / Unknown 10/26/2024 1 1:29 AM CDT Abbie [facility] - POINT OF CARE ORDE RABMINNA Final Result [facility] [address] [place] [address], [facility] [phone] from Last 3 Months Insurance [facility] [place] [address] [place] [address] [facility] * Guarantor: HANNAH KING Account Type Relation to Patient Date of Phone Billing Address Personal/Family Spouse
--- OUTSIDE RECORDS SUMMARY | 2024-12-25 17:16 | XMS_ITS | Patient Health Record ---
Author Organization [facility] [employer] Address [address] [place] [address] Care Team Providers Care Principal Network Engineer Name Role Phone Kanika Anders Unavailable [phone] Allergies Allergen (clinical drug ingredient) Drug/Non Drug Allergy documented on EMR Reaction Allergy Type Onset Date Status Substance with sulfonamide structure and antibacterial mechanism of action (substance) SULFA (SULFONAMIDE ANTIBIOTICS) (uncoded) Unknown Allergy 04/22/2023 Active Keflex Unknown Drug Allergy 04/22/2023 Active Results Component Value Reference Range Notes UDT Reviewed date:08/14/2024 09:13:58 AM Interpretation: Performing Lab: Notes/Report: Amphetamine (AMP) POS 0 - 1000 ng/ml Buprenorphine (BUP) NEG 0 - 10 ng/ml Oxazepam (BZO) NEG 0 - 300 ng/ml Cocaine (JUAN) NEG 0 - 300 ng/ml Methamphetamine (mAMP) NEG 0 - 300 ng/ml Methylenedioxymethamphetamine (MDMA) NEG 0 - 500 ng/ml Morphine (MOP) NEG 0 - 25 ng/ml Methadone (MTD) NEG 0 - 300 ng/ml Oxycodone (OXY) NEG 0 - 300 ng/ml THC NEG 0 - 50 ng/ml x NEG 0 - 1000 ng/ml x NEG 0 - 1000 ng/ml x NEG 0 - 300 ng/ml x NEG 0 - 300 ng/ml x NEG 0 - 300 ng/ml Reason For Referral No Information Medications Medication SIG (Take, Route, Frequency, Duration) Notes Start Date End Date Status Vilazodone HCl 40 MG Tablet Oral 04/22/2023 Active Viibryd 40 MG Tablet 1 tablet with food Oral Once a day; Duration: 90 days 11/13/2024 Active Rexulti 1 MG Tablet 1 tablet Oral Once a day; Duration: 90 days 11/13/2024 Active amLODIPine Besylate 5 MG Tablet Oral 04/22/2023 Active busPIRone HCl 10 MG Tablet 1 tablet Oral Twice a day; Duration: 90 days 04/22/2023 02/11/2025 Active Estradiol 10 MCG Tablet Vaginal 04/22/2023 Active Amphetamine-Dextroamphet ER 30 MG Capsule Extended Release 24 Hour 1 capsule in the morning Oral Once a day; Duration: 30 days 12/19/2024 Active Rizatriptan Benzoate 10 MG Tablet Oral 04/22/2023 Active Immunizations Vaccine Route Administration Date [...] decision-maker Yes Do you have Power of Syrup Mixer Assistant for Health or [facility] jana? No Tobacco Use: Social Info Question Answer Notes Tobacco Control (Standard) Tobacco use: Nonsmoker Additional Details Category Social Info Options Details Migrated Social History Migrated Social History Alcohol Intake: Moderate 07/09/2022,Tobacco Years: Never smoker 12/05/2017,Smoking Status: 0 01/21/2023 Problems Problem Type SNOMED Code ICD Code Onset Dates Problem Status W/U Status Risk Notes Problem Mild recurrent major depression (39104651) Major depressive disorder, recurrent, mild (F33.0) 04/22/19 Active confirmed Problem Generalized anxiety disorder (27613585) Generalized anxiety disorder (F41.1) 04/22/19 24 Active confirmed Problem Primary insomnia (2221047) Primary insomnia (F51.01) 04/22/19 Active confirmed Problem Attention deficit hyperactivity disorder (333875790) Attention-deficit hyperactivity disorder, predominantly hyperactive type (F90.1) 12/14/19 Active confirmed Problem Long-term current use of drug therapy (376458490) Other half-way (current) drug therapy (Z79.899) 04/22/19 Active confirmed Vital Signs Heart Rate 99 /min 11/13/2024 Respiratory Rate 16 /min 08/14/2024 Height-cm 157.48 cm 11/13/2024 Blood pressure diastolic 78 mm Hg 11/13/2024 Weight-kg 80.65 kg 11/13/2024 Height 62.00 in 11/13/2024 Blood pressure systolic 118 mm Hg 11/13/2024 Weight 177.8 lbs 11/13/2024 BMI 32.52 kg/m2 11/13/2024 Encounters Encounter Location Date Provider Diagnosis [facility] [address] [address] 02/20/2024 Kanika Anders Generalized anxiety disorder F41.1 ; Major depressive disorder, recurrent, mild F33.0 ; Attention-deficit hyperactivity disorder, predominantly hyperactive type F90.1 ; Other local intermodal truck driver (current) drug therapy Z79.899 and Primary insomnia F51.01 [facility] [address] [address] 05/21/2024 Kanika Anders Generalized anxiety disorder F41.1 ; Major depressive disorder, recurrent, mild F33.0 ; Attention-deficit hyperactivity disorder, predominantly hyperactive type F90.1 ; Other half-way (current) drug therapy Z79.899 ; Primary insomnia F51.01 and Encounter for screening for depression Z13.31 [facility] [place] [id number] [facility] [address] [address] 08/14/2024 Kanika Anders Generalized anxiety disorder F41.1 ; Major depressive disorder, recurrent, mild F33.0 ; Attention-deficit hyperactivity disorder, predominantly hyperactive type F90.1 ; 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 [address] [place] [address] 11/13/2024 Kanika Thery Generalized anxiety disorder F41.1 ; Major depressive disorder, recurrent, mild F33.0 ; Attention-deficit hyperactivity disorder, predominantly hyperactive type F90.1 and Primary insomnia F51.01 [facility] [address] [place] [address] 01/12/2024 Kanika Thery Attention-deficit hyperactivity disorder, predominantly hyperactive type F90.1 [facility] [address] [place] [address] 02/07/2024 Kanika Thery Attention-deficit hyperactivity disorder, predominantly hyperactive type F90.1 [facility] [address] [place] [address] 03/05/2024 Kanika Thery Attention-deficit hyperactivity disorder, predominantly hyperactive type F90.1 [facility] [address] [place] [address] 04/16/2024 Kanika Thery Attention-deficit hyperactivity disorder, predominantly hyperactive type F90.1 [facility] [address] [place] [address] 04/16/2024 Kanika Thery [facility], [facility] [address] [place] [address] 05/17/2024 Kanika Thery [facility], [facility] [address] [place] [address] 06/18/2024 Kanika Thery Attention-deficit hyperactivity disorder, predominantly hyperactive type F90.1 [facility] [address] [place] [address] 07/19/2024 Kanika Thery Attention-deficit hyperactivity disorder, predominantly hyperactive type F90.1 [facility] [address] [place] [address] 09/17/2024 Kanika Thery Attention-deficit hyperactivity disorder, predominantly hyperactive type F90.1 [facility] [address] [place] [address] 10/16/2024 Kanika Thery Attention-deficit hyperactivity disorder, predominantly hyperactive type F90.1 [facility] [address] [place] [address] 12/18/2024 Kanika Anders Attention-deficit hyperactivity disorder, predominantly hyperactive type F90.1 [facility] [address] [place] [address] 12/19/2024 Kanika Anders Attention-deficit hyperactivity disorder, predominantly hyperactive type F90.1 Assessments Encounter Date Diagnosis (ICD Code) Assessment Notes Treatment Notes Treatment Clinical Notes Section Notes 01/12/2024 Attention-defici t hyperactivity disorder, predominantly hyperactive [...] mg at noon no refill needed today [facility] pharmacy ADHD stimulates education Discuss with patient risk of misuse, abuse, and addiction before prescribing stimulant medicines. 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 Random [facility] prescription reviewed 4. Primary insomnia -stable 5. [...] disorder -Adderall ER 30 mg in am [facility] pharmacy ADHD stimulates education Discuss with patient risk of misuse, abuse, and addiction before prescribing stimulant medicines. 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 Random [facility] prescription reviewed 4. Primary insomnia -stable 5. Long-term drug therapy 09/17/2024 Attention-defici t hyperactivity disorder, predominantly hyperactive type (ICD-10 - F90.1) 10/16/2024 Attention-defici t hyperactivity disorder, predominantly hyperactive type (ICD-10 - F90.1) 11/13/2024 Generalized anxiety disorder (ICD-10 - F41.1) Learning About Generalized Anxiety Disorder material was published, Generalized Anxiety Disorder: Care Instructions material was published, Learning About Anxiety Disorders material was published 1. major depressive Rexulti 1 mg daily for depression (apathetic mood with 2 mg dose ) continue Viibryd 40 mg daily- eat 350 calories on rx 2. Generalized anxiety disorder - increase Buspar 10 mg twice a day for increase anxiety 3. Attention deficit hyperactivity disorder -Adderall ER 30 mg in [facility] pharmacy ADHD stimulates education Discuss with patient risk of misuse, abuse, and addiction before prescribing stimulant medicines. 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 Random [facility] prescription reviewed 4. Primary insomnia -stable 5. Long-term drug therapy 12/18/2024 Attention-defici t hyperactivity disorder, predominantly hyperactive type (ICD-10 - F90.1) 12/19/2024 Attention-defici t hyperactivity disorder, predominantly hyperactive type (ICD-10 - F90.1) 11/13/2024 Attention-defici t hyperactivity disorder, predominantly hyperactive type (ICD-10 - F90.1) Learning About Attention Deficit Hyperactivity Disorder (ADHD) in Adults material was published 1. major depressive Rexulti 1 mg daily for depression (apathetic mood with 2 mg dose ) continue Viibryd 40 mg daily- eat 350 calories on rx 2. Generalized anxiety disorder - increase Buspar 10 mg twice a day for increase anxiety 3. Attention deficit hyperactivity disorder -Adderall ER 30 mg in [facility] pharmacy ADHD stimulates education Discuss with patient risk of misuse, abuse, and addiction before prescribing stimulant medicines. 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 Random [facility] prescription reviewed 4. Primary insomnia -stable 5. Long-term drug therapy 11/13/2024 Major depressive disorder, recurrent, mild (ICD-10 - [...] mg dose ) continue Viibryd 40 mg daily- eat 350 calories on rx 2. Generalized anxiety disorder - increase Buspar 10 mg twice a day for increase anxiety 3. Attention deficit hyperactivity disorder -Adderall ER 30 mg in [facility] pharmacy ADHD stimulates education Discuss with patient risk of misuse, abuse, and addiction before prescribing stimulant medicines. 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 Random [facility] prescription reviewed 4. Primary insomnia -stable 5. Long-term drug therapy 08/14/2024 Major depressive disorder, recurrent, mild (ICD-10 [...] hyperactivity disorder -Adderall ER 30 mg in [facility] pharmacy ADHD stimulates education Discuss with patient risk of misuse, abuse, and addiction before prescribing stimulant medicines. 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 Random [facility] prescription reviewed 4. Primary insomnia -stable 5. [...] mg in am no refill [facility] ADHD stimulates education Discuss with patient risk of misuse, abuse, and addiction before prescribing stimulant medicines. 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 Random [facility] prescription reviewed 4. Primary insomnia -stable 5. [...] mg at noon no refill needed today [facility] pharmacy ADHD stimulates education Discuss with patient risk of misuse, abuse, and addiction before prescribing stimulant medicines. 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 Random [facility] prescription reviewed 4. Primary insomnia -stable 5. [...] mg at noon no refill needed today [facility] pharmacy ADHD stimulates education Discuss with patient risk of misuse, abuse, and addiction before prescribing stimulant medicines. 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 Random [facility] prescription reviewed 4. Primary insomnia -stable 5. Long-term drug therapy 02/20/2024 Other half-way (current) drug therapy (ICD-10 - Z79.899) Medication [...] mg at noon no refill needed today [facility] pharmacy ADHD stimulates education Discuss with patient risk of misuse, abuse, and addiction before prescribing stimulant medicines. 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 Random [facility] prescription reviewed 4. Primary insomnia -stable 5. [...] mg in am no refill needed today [facility] pharmacy ADHD stimulates education Discuss with patient risk of misuse, abuse, and addiction before prescribing stimulant medicines. 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 Random [facility] prescription reviewed 4. Primary insomnia -stable 5. Long-term drug therapy 11/13/2024 Primary insomnia (ICD-10 - F51.01) Insomnia: Care Instructions material was published, Learning About Sleeping Well material was published 1. major depressive Rexulti 1 mg daily for depression (apathetic mood with 2 mg dose ) continue Viibryd 40 mg daily- eat 350 calories on rx 2. Generalized anxiety disorder - increase Buspar 10 mg twice a day for increase anxiety 3. Attention deficit hyperactivity disorder -Adderall ER 30 mg in [facility] ADHD stimulates education Discuss with patient risk of misuse, abuse, and addiction before prescribing stimulant medicines. 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 Random [facility] prescription reviewed 4. Primary insomnia -stable 5. [...] hyperactivity disorder -Adderall ER 30 mg in [facility] ADHD stimulates education Discuss with patient risk of misuse, abuse, and addiction before prescribing stimulant medicines. 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 Random [facility] prescription reviewed 4. Primary insomnia -stable 5. Long-term drug therapy 08/14/2024 Other half-way (current) drug therapy (ICD-10 - Z79.899) Medication Refill: Care Instructions material was published 1. major depressive Rexulti 1 mg daily for depression (apathetic mood with 2 mg dose ) continue Viibryd 40 mg daily 2. Generalized anxiety disorder - Buspar 10 mg a day- no refill needed 3. Attention deficit hyperactivity disorder -Adderall ER 30 mg in [facility] ADHD stimulates education Discuss with patient risk of misuse, abuse, and addiction before prescribing stimulant medicines. 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 Random [facility] prescription reviewed 4. Primary insomnia -stable 5. Long-term drug therapy 05/21/2024 Other half-way (current) drug therapy (ICD-10 - Z79.899) Medication Refill: Care Instructions material was published 1. major depressive Rexulti 1 mg daily for depression (apathetic mood with 2 mg dose ) continue Viibryd 40 mg daily 2. Generalized anxiety disorder - Buspar 10 mg twice a day- 3. Attention deficit hyperactivity disorder -Adderall ER 30 mg in am no refill needed today [facility] ADHD stimulates education Discuss with patient risk of misuse, abuse, and addiction before prescribing stimulant medicines. 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 Random [facility] prescription reviewed 4. Primary insomnia -stable 5. [...] mg at noon no refill [facility] ADHD stimulates education Discuss with patient risk of misuse, abuse, and addiction before prescribing stimulant medicines. 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 Random [facility] prescription reviewed 4. Primary insomnia -stable 5. [...] mg in am no refill needed today [facility] pharmacy ADHD stimulates education Discuss with patient risk of misuse, abuse, and addiction before prescribing stimulant medicines. 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 Random [facility] prescription reviewed 4. Primary insomnia -stable 5. [...] disorder -Adderall ER 30 mg in am [facility] ADHD stimulates education Discuss with patient risk of misuse, abuse, and addiction before prescribing stimulant medicines. 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 [facility] prescription reviewed 4. Primary insomnia -stable 5. [...] mg in am no refill needed today [facility] pharmacy ADHD stimulates education Discuss with patient risk of misuse, abuse, and addiction before prescribing stimulant medicines. 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 [facility] prescription reviewed 4. Primary insomnia -stable 5. [...] disorder -Adderall ER 30 mg in am [facility] ADHD stimulates education Discuss with patient risk of misuse, abuse, and addiction before prescribing stimulant medicines. 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 [facility] prescription reviewed 4. Primary insomnia -stable 5. Long-term drug therapy 08/14/2024 Negative depression screening (ICD-10 - Z13.31) 1. major depressive Rexulti 1 mg daily for depression (apathetic mood with 2 mg dose ) continue Viibryd 40 mg daily 2. Generalized anxiety disorder - Buspar 10 mg a day- no refill needed 3. Attention deficit hyperactivity disorder -Adderall ER 30 mg in am [facility] ADHD stimulates education Discuss with patient risk of misuse, abuse, and addiction before prescribing stimulant medicines. 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 [...] Next Appt Details Provider Name:Kanika Anders , 02/12/2025 04:15:00 PM, [address], [facility] [address], [place], [address], Insurance Providers Payer Name Payer Address Payer Phone Subscriber Number Group Number Insured Name Patient Relationship to Insured Coverage Start Date Coverage End Date [facility] [address] [address] [place] [address] [id number] RAFAL KING Spouse - patient is the spouse of the insured Medical (General) History Medical History History ICD Code Problems: Attention deficit hyperactivit y disorder Generalized anxiety disorder Long-term drug therapy Migraine Primary insomnia Recurrent major depressive episodes, mil d Recurrent major depressive episodes, mod erate , Surgical History Surgery Date(Month/Year) Endometrial ablation (98570) 02/28/2009 Hysterectomy (23491) 02/28/2014 Appendectomy (17669) 02/28/2018
--- OUTSIDE RECORDS SUMMARY | 2024-12-25 17:53 | XMS_ITS | Clinical Summary ---
Author Organization [facility] [employer] Address [address] [place] [address] Care Team Providers Care Activated Sludge Operator Name Role Phone Unavailable Primary Care Provider Unavailabl e Source Comments [facility] [employer],non-owned Affiliates and Associated Physician Practices is amultiple site organization consisting of ambulatory clinics and hospital sitesin [place], [place], [place] and [place]. This disclosure is being madepursuant to the Care Everywhere program and may not contain all information available regarding this patient. Last updated 17.[facility] [employer] Allergies Active Allergy Reactions Criticality Noted Date [...] Department Care Team Description 10/30/2024 Results Follow-Up [facility] [address] [place] [address] Miranda Willard RN 10/26/2024 11:10 AM CDT - 10/26/2024 11:59 PM CDT Hospital Encounter [facility] [address] [place] [address] Juan Carlos Meyer APRN-CNP Pfeifer, Hannah, APRN-CNP [...] urogenital melba BASILIO 10/28/2024 2:43 AM CDT [facility]CRO[facility] Urine URINE SPECIMEN OBTAINED BY CLEAN CATCH PROCEDURE / Unknown Collection / Unknown 10/26/2024 11:45 AM CDT 10/26/2024 11:45 AM CDT Abbie Champagne APRN-[facility] - MICROBIOLOGY ORDER TIMA Final Result [facility] [address] [place] [address], [facility] [phone] * URINALYSIS - POCT (IP) URGENT CARE (10/26/2024 11:29 AM CDT) Glucose UA NEG Negative [facility] Bilirubin UA NEG Negative [facility] Ketone UA NEG Negative [facility] Specific [place] UA POCT 1.005 1.000 - 1.030 [facility] Blood UA NEG Negative [facility] pH UA 6.5 5.0 - 8.0 pH units [facility] Protein UA NEG Negative [facility] Urobilinogen UA 0.2 0.2 - 1.0 EU/dL [facility] Nitrite UA NEG Negative [facility] Leukocyte UA NEG Negative [facility] QC Verified Yes Yes [facility] Urine URINE / Unknown 10/26/2024 1 1:29 AM CDT Abbie [facility] - POINT OF CARE ORDE RABMINNA Final Result [facility] [address] [place] [address], [facility] [phone] from Last 3 Months Insurance [facility] [place] [address] [place] [address] [facility] * Guarantor: HANNAH KING Account Type Relation to Patient Date of Phone Billing Address Personal/Family Spouse
--- OUTSIDE RECORDS SUMMARY | 2024-12-25 17:53 | XMS_ITS | Encounter Summary ---
Author Organization [facility] Address [address] [place] [address] Care Team Providers Care Platform Material Handling Supervisor Name Role Phone Unavailable Primary Care Provider Unavailabl e Encounter Details Date Type Department Care Team (Late st Contact Info) Description 10/30/2024 Results Follow-Up [facility] [address] [place] [id number] Miranda Willard, RN Social History Tobacco Use [...]
--- OUTSIDE RECORDS SUMMARY | 2024-12-25 17:53 | XMS_ITS | Clinical Summary ---
Author Organization [facility] Address [address] [place] [address] Care Team Providers Care Hourly Manager Name Role Phone Romeo Dobbs MD Primary Care Provider + [phone] Allergies Active Allergy Reactions Criticality Noted Date [...] 1 tablet (40 mg total) by mouth automatic machine attendant before breakfast Active brexpiprazole (Rexulti) 1 mg tabletIndications :Depression Treatment Adjunct Take 1 tablet (1 mg total) by mouth automatic machine attendant before breakfast Active amLODIPine (NORVASC) 5 mg tabletIndications :hypertension Take 1 tablet (5 mg total) by mouth automatic machine attendant before breakfast 3 Active rizatriptan (MAXALT) 10 [...] 1 tablet (5,000 Units total) by mouth automatic machine attendant before breakfast Active acidophilus-pecti n, citrus 100 million cell-10 mg capsuleIndication s:Gut Health Take 1 tablet by mouth automatic machine attendant before breakfast Active nitrofurantoin monohydrate (MACROBID) 100 [...] 03/30/2023 Assessment & Plan (03/31/2023 7:52 AM COMPLIANCE ANALYST): Incidentally diagnosed on MRI during workup for [...] 03/30/2023 Assessment & Plan (03/30/2023 4:15 PM COMPLIANCE ANALYST): Resume home amlodipine tomorrow Anxiety and depression 03/30/2023 Assessment & Plan (03/30/2023 4:16 PM COMPLIANCE ANALYST): Continue home buspirone and vilazodone. Home Rexulti [...] on file Legal Sex Female 7:19 AM COMPLIANCE ANALYST Gender Identity Not on file Sexual Orientation Not on file Obstetrics History Last Filed Vital Signs Vital Sign Reading Time Taken Comments Blood Pressure 120/79 07/21/2023 3:45 PM CDT Pulse 84 03/31/2023 8:00 AM COMPLIANCE ANALYST Temperature 36.6 C (97.9 F) 03/31/2023 8:00 AM COMPLIANCE ANALYST Respiratory Rate 20 03/31/2023 8:00 AM COMPLIANCE ANALYST Oxygen Saturation 93% 03/31/2023 8:00 AM COMPLIANCE ANALYST Inhaled Oxygen Concentration - - Weight 80 [...] compared to prior imaging studies performed at [facility] on 08/06/2020, 08/07/2021 and 09/14/2022. MAMMOGRAM [...] compared to prior imaging studies performed at [facility] on 08/06/2020, 08/07/2021 and 09/14/2022. MAMMOGRAM [...] to Health [place] [address] [place] [address] [facility] CHOICE PL[facility]/PPO Address: [address] [address] [place] [address] [place] [address] [facility] CHOICE [employer] [facility]PP[facility] Address: [address] [place], [place] [id number] Advance Directives For more information, please contact: [phone] * Full Code (Latest Code Status on File) Date Activated Date Inactivated Comments 03/30/2023 11:54 AM 03/31/2023 1:50 PM * Full Code Date Activated Date Inactivated Comments 03/30/2023 7:04 AM 03/30/2023 11:54 AM Care Teams Hourly Manager Relationship Specialty Start Date End Date Romeo Dobbs MD [address] [place] [address] PCP - General Internal Medicine 08/24/19
--- NOTE | 2024-12-25 18:02 | ECG_ITS ---
Test Date: 2024-12-25 18:08:37 Measurements Intervals Sod Rate: 83 P: 66 OK: 159 QRS: 36 QRSD: 83 T: 29 QT: 367 QTc: 432 Interpretive Statements SINUS RHYTHM EARLY PRECORDIAL R/S TRANSITION BASELINE ARTIFACT- I, II, III, AVR, AVL, AVF BORDERLINE ECG Compared to ECG 12/25/2024 15:02:18 HEART RATE HAS DECREASED Electronically Signed On 12-25-2024 18:34:29 CDT by Sunil Ayala D.O.
[2024-12-25 18:31] LABS: Troponin I < 0.012 ng/mL (0.000-0.034)
== END 2024-12-25 19:22 | disposition home or self-care (01) ==
PROVIDERS: Emergency Provider Student in an Organized Health Care Education/Training Program; PCP Internal Medicine
DX: R07.9 Chest pain, unspecified (principal); K21.9 Gastro-esophageal reflux disease without esophagitis; F90.9 Attention-deficit hyperactivity disorder, unspecified type; F41.1 Generalized anxiety disorder; Z79.899 Other long term (current) drug therapy; R00.0 Tachycardia, unspecified
CPT/HCPCS: 36415; 71046; 71275; 80053; 83690; 84484; 85025; 85610; 85730; 93005; 93971; 99284; A9270; Q9967